=== PATIENT | female | born 1980 | race Caucasian/White ===

== ENCOUNTER 2017-10-12 06:02 | Observation (INO) | payer OTHER ==
[~2017-10-12 06:02] MED LIST: Buffered Lidocaine 0.9% SYRIN* 5 ML/SYR SYRINGE INTRADERM ONE; Famotidine IV* 10 MG/ML 2 ML (20 mg) IV ONE; Ondansetron INJ* 2 MG/ML VIAL IV ONE; Sodium Citrate/Citric Acid* 15 ML UDC PO ONE
[2017-10-12] MEDS ORDERED: Ondansetron INJ* 2 MG/ML VIAL ONE ×2 (06:35→08:11)
[2017-10-12] MEDS ORDERED: Sodium Citrate/Citric Acid* 15 ML UDC ONE (06:35)
[2017-10-12] MEDS ORDERED: Famotidine IV* 10 MG/ML 2 ML (20 mg) ONE (06:35)
[2017-10-12] MEDS ORDERED: Clindamycin 900 MG IVPREMIX(* 900 MG/50 ML SDV IV ONE (06:35)
[2017-10-12] MEDS ORDERED: Buffered Lidocaine 0.9% SYRIN* 5 ML/SYR SYRINGE ONE (06:35)
[2017-10-12] MEDS ORDERED: fentaNYL* 50 MCG/ML 2 ML VIAL (100 MCG VIAL) ONE ×3 (06:59→10:12)
[2017-10-12] MEDS ORDERED: Midazolam* 1 MG/ML 2 ML VIAL (2 MG) ONE (06:59)
[2017-10-12] MEDS ORDERED: Rocuronium* 10 MG/ML VIAL ONE (07:00)
[2017-10-12] MEDS ORDERED: Sterile Water for Inj* 10 ML ONE (07:01)
[2017-10-12] MEDS ORDERED: Sugammadex * 200 MG/2 ML VIAL IV PUSH ONE (07:18)
[2017-10-12] MEDS ORDERED: Bacitracin IV* 50,000 UNITS INJ ONE (07:26)
[2017-10-12] MEDS ORDERED: Lidocaine 1% MPF wEPI 200,000* 30 ML SDV ONE (07:26)
[2017-10-12] MEDS ORDERED: Thrombin 5,000 UNITS* 1 APPLIC KIT - topical use - TOPICAL ONE (07:26)
[2017-10-12] MEDS ORDERED: HYDROcodone/ACETAMIN 5-325 MG* 1 TAB PO PRN (07:59)
[2017-10-12] MEDS ORDERED: HYDROmorphone INJ* 1 MG/ML CARPUJECT SYRINGE IV PRN (07:59)
[2017-10-12] MEDS ORDERED: Ondansetron INJ* 2 MG/ML VIAL IV PRN ×2 (07:59→08:46)
[2017-10-12] MEDS ORDERED: Naloxone* 0.4 MG/ML 1 ML VIAL IV PRN (07:59)
[2017-10-12] MEDS ORDERED: Ketorolac INJ* 30 MG/ML 1 ML VIAL ONE (08:11)
[2017-10-12] MEDS ORDERED: Lidocaine 2% PF * 5 ML VIAL ONE (08:11)
[2017-10-12] MEDS ORDERED: Propofol* 10 MG/ML 20 ML BTL IV PUSH ONE (08:11)
[2017-10-12] MEDS ORDERED: Magnesium Hydroxide LIQ* 30 ML UDC PO PRN (08:46)
[2017-10-12] MEDS ORDERED: Acetaminophen TAB* 325 MG PO PRN (08:46)
[2017-10-12] MEDS ORDERED: Mouth Piece, Nicotine* 1 EACH CARTRIDGE INH PRN ×2 (08:51)
[2017-10-12] MEDS ORDERED: Nicotine Inhaler* 10 MG AMP INH PRN (08:51)
[2017-10-12] MEDS ORDERED: ALPRAZolam TAB* 0.5 MG PO PRN (08:52)
[2017-10-12] MEDS ORDERED: oxyCODONE/Acetamin 5/325 MG* TAB PO PRN (08:56)
[2017-10-12] MEDS: fentaNYL* 50 MCG/ML 2 ML VIAL (100 MCG VIAL) IV PRN ×3 (09:07→10:14)
[2017-10-12] MEDS ORDERED: oxyCODONE/Acetamin 5/325 MG* TAB ONE (09:11)
[2017-10-12] MEDS: oxyCODONE/Acetamin 5/325 MG* TAB PO PRN ×5 (09:12→22:13)
--- NOTE | 2017-10-12 11:16 | RAD ---
HISTORY: Lumbar discectomy COMPARISONS: None VIEWS: 1 , crosstable lateral portable view of the spine for localization a spinal surgery FINDINGS: A single portable view of the spine performed intraoperatively for localization during spinal surgery at 8:15 AM demonstrates a metallic probe opposite of L5-S1 counting from L5 as the last lumbar type vertebral body. IMPRESSION: LIMITED PORTABLE VIEW OF THE SPINE FOR LOCALIZATION DURING SPINAL SURGERY
[2017-10-12] MEDS: Nicotine PATCH 21 MG/24 HR* PATCH TRANSDERM SCH (13:51)
[2017-10-12] MEDS: Nicotine Patch Removal NOTE FOLLOW UP SCH (22:37)
[2017-10-13] MEDS: oxyCODONE/Acetamin 5/325 MG* TAB PO PRN ×2 (03:36→08:21)
[2017-10-13] MEDS: Nicotine Patch Removal NOTE FOLLOW UP SCH (06:23)
--- NOTE | 2017-10-13 07:50 | PN ---
Progress Note - Progress Note Date of Service: 10/13/17 SOAP: Subjective: [S/p lumbar discectomy L5-S1 on the right, POD#1. Patient is feeling well this morning. Complains of mild low back incisional soreness. Ambulating well. Denies headache and nausea. ] Objective: [ Vital Signs: Temp Pulse Resp BP Pulse Ox 97.6 F 78 16 118/78 100 10/13/17 04:00 10/13/17 04:00 10/13/17 06:00 10/13/17 04:00 10/13/17 04:00 General: Alert and oriented. Neuro: Motor and sensory intact. Incision: Intact with jomar. No swelling, erythema or ecchymosis. Extremities: Full ROM] Assessment: [Satisfactory post-op course. ] Plan: [1. Discharge home today. 2. Discharge instructions provided and discussed. ]
[2017-10-13 08:15] VITALS: BP 121/83
[2017-10-13] MEDS: Nicotine PATCH 21 MG/24 HR* PATCH TRANSDERM SCH (08:17)
--- NOTE | 2017-10-14 22:59 | OP ---
DATE OF OPERATION: 10/12/17 - ROOM #351 DATE OF : 84 SURGEON: William Beltran MD HAND SINGER: OTONIEL Yeh ANESTHESIA: General. PRE-OP DIAGNOSIS: Herniated nucleus pulposus, L5-S1 on the right. POST-OP DIAGNOSIS: Herniated nucleus pulposus, L5-S1 on the right. OPERATIVE PROCEDURE: Lumbar diskectomy, L5-S1 on he right with microdissection. DESCRIPTION OF PROCEDURE: After satisfactory general anesthesia was obtained, the patient was placed on the operating table in prone position with the chest supported on the Barak frame and the back slightly flexed. The lumbar region was then clipped, prepped and draped in a sterile manner for a lumbar exposure. Skin incision outlined beginning at L4 and extending to the sacrum. This incision was infiltrated with 1% Xylocaine with epinephrine after which it was turned down sharply to the level of the lumbar fascia. The fascia was divided along the spinous processes from L5 to the sacrum and the paraspinal musculature stripped away from these posterior elements using the periosteal elevator and monopolar cautery. 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 An intraoperative x-ray was obtained verifying proper interspace localization after which a partial hemilaminectomy was carried out by removing the inferior aspect of the L5 lamina and medial aspect of the facet complex using the combination of the Midas Regan drill and Kerrison rongeurs. This was carried superiorly until the attachment of ligamentum flavum was taken down. At this point of procedure, the operating microscope was brought into the field and the remainder of the procedure was done under microscopic visualization. Utilizing microdissection, epidural venous structures were coagulated and divided. Projecting beneath the S1 nerve root was noted to be a subcapsular herniation of disk material. An opening was identified in the posterior longitudinal ligament and enlarged. Multiple fragments of disk were removed from beneath the nerve root. The disk space itself was then cleared of any loose disk material using pituitary forceps and curettes. At the conclusion of the decompression, the S1 nerve root was noted to be free in its course. After assuring adequate hemostasis, the wound was thoroughly irrigated after which pieces of Gelfoam were placed over the exposed dura. The fascia was then reapproximated with 0 Vicryl suture, the subcutaneous tissue was closed with 3- 0 Vicryl suture and the skin closed with skin clips. The estimated blood less was less then 50 cc and the final sponge, padding, and needle counts were correct. The patient was taken to the recovery room, extubated and in stable condition. [id number]/CPS #: [id number] MTDD
== END 2017-10-13 10:15 | disposition home or self-care (01) ==
LOC: OR 06:02 → SSU 08:46
PROVIDERS: ADMIT Neurological Surgery; ATTEND Neurological Surgery
DX: M51.27 Other intervertebral disc displacement, lumbosacral region (principal); Z88.0 Allergy status to penicillin; Z88.6 Allergy status to analgesic agent; Z87.39 Personal history of other diseases of the musculoskeletal system and connective tissue
CPT/HCPCS: 72100; 96374; 96375; A9270-GY; G0378; J1885; J2001; J2250; J2405; J2704; J3010

== ENCOUNTER 2017-10-23 17:46 | Inpatient (IN) | payer OTHER ==
[2017-10-23] MEDS ORDERED: Ondansetron INJ* 2 MG/ML VIAL IV ONE (17:49)
[2017-10-23] MEDS ORDERED: NS 0.9% 1000 ML* 1,000 ML IV ONE (17:50)
[2017-10-23 18:11] LABS: ABS Basophils 0.1 10^3/ul (0-0.2); ABS Eosinophils 0 10^3/ul (0-0.6); ABS Lymphocytes 2.9 10^3/ul (1.0-4.8); ABS Monocytes 0.9 10^3/ul (0-0.8); ABS Neutrophils 3.1 10^3/ul (1.5-7.7); ABS Nucleated RBC 0 10^3/ul; Eosinophil % 0.4 % (0-6); Hematocrit 37 % (35-47); Hemoglobin 12.2 g/dl (12.0-16.0); Lymphocyte % 41.4 % (25-47); Mean Corpuscular HGB Conc 33 g/dl (31-36); Mean Corpuscular Hemoglobin 30 pg (27-31); Mean Corpuscular Volume 91 fL (80-97); Mean Platelet Volume 9 um3 (7.4-10.4); Nucleated Red Blood Cells % 0; Platelet Count 360 10^3/ul (150-450); Red Blood Count 4.06 10^6/ul (4.0-5.4); Red Cell Distribution Width 13 % (10.5-15)
[2017-10-23 18:26] LABS: EGFR Non-African American 87.9 (>60)
[2017-10-23 18:31] LABS: INR 1.01 (0.77-1.02)
[2017-10-23] MEDS ORDERED: Morphine INJ* 4 MG/ML 1 ML CARPUJECT IV ONE (18:38)
--- NOTE | 2017-10-23 19:00 | RAD ---
INDICATION: Back pain. Requisition notes "back surgery 10/12" COMPARISON: None. TECHNIQUE: Single AP portable view of the chest was obtained. FINDINGS: Image quality is compromised due to the relative inferiority of a portable chest x-ray. The heart and mediastinum exhibit normal size and contour. The lungs are grossly clear. There is no evidence of a large pleural effusion. Visualized bones are normal for the patient's age. IMPRESSION: No radiographic evidence for acute cardiopulmonary abnormality on this portable chest x-ray.
[2017-10-23] MEDS ORDERED: PROCHLORPERAZINE INJ 5 MG/ML 2 ML VIAL IV PRN (19:29)
[2017-10-23 20:17] LABS: Urine Appearance Cloudy; Urine Blood 1+ (Negative); Urine Color Yellow; Urine Ketones Negative (Negative); Urine Protein Negative (Negative); Urine Specific Gravity 1.014 (1.010-1.030); Urine Urobilinogen Negative (Negative)
[2017-10-23] MEDS: NS 0.9% 1000 ML* 1,000 ML IV SCH (20:33)
[2017-10-23] MEDS: oxyCODONE/Acetamin 5/325 MG* TAB PO PRN (20:36)
--- NOTE | 2017-10-23 20:39 | ED ---
Jakob Canales Nikita, scribed for Carlos Peña MD on 10/23/17 at 1802 . Back Pain - HPI Summary HPI Summary: This patient is a 37 year old F BIBA presenting to ED with a chief complaint of pain from the head and radiating down the back since 10/16/2017. The patient rates the pain 10/10 in severity. Symptoms aggravated by standing. Symptoms alleviated by laying supine. Patient reports soreness, vomiting (x1 week), SIBLEY ( since 10/16/2017), and nasal congestion. Patient denies hematuria, bowel or urinary problems, cough, and dehydration. The pt had surgery (disc removal) on 10/12/2017. - History of Current Complaint Stated Complaint: POST OP SURGERY Time Seen by Provider: 10/23/17 17:49 Hx Obtained From: Patient Onset/Duration: Sudden Onset, Lasting Weeks, Still Present Onset/Duration: Started Weeks Ago, Still Present Timing: Constant, Lasting Weeks Back Pain Location: Is Diffuse, Radiates To - from head and down the back Severity Initially: Severe Severity Currently: Severe Pain Intensity: 10 Pain Scale Used: 0-10 Numeric Aggravating Symptom(s): Other - standing up Alleviating Symptom(s): Position - laying supine Associated Signs And Symptoms: Positive: Other - Patient reports soreness, vomiting (x1 week), SIBLEY (since 10/16/2017), and nasal congestion. Patient denies hematuria, bowel or urinary problems, cough, and dehydration. - Allergies/Home Medications Allergies/Adverse Reactions: Allergies Allergy/AdvReac Type Severity Reaction Status Date / Time aspirin Allergy Anaphylatic Verified 10/23/17 19:50 Shock Penicillins Allergy Anaphylatic Verified 10/23/17 19:50 Shock PMH/Surg Hx/FS Hx/Imm Hx Endocrine/Hematology History: Denies: Hx Diabetes Cardiovascular History: Denies: Hx Coronary Artery Disease, Hx Hypertension Musculoskeletal History: Reports: Other Musculoskeletal History - back pain Psychiatric History: Reports: Hx Anxiety - prn med, Hx Depression - prn med - Surgical History Surgery Procedure, Year, and Place: bilateral ear tubes placed as a child - [place] - 2006 [place]. tubal ligation - 2006 [place]. hysterectomy 2012 [place]. hernia repair 2014 - [place] Hx Anesthesia Reactions: No Infectious Disease History: No Infectious Disease History: Denies: Traveled Outside the [place] in Last 30 Days - N - Family History Known Family History: Positive: Hypertension, Other Family History: Lung CA, Alzheimer's, sleep apnea - Social History Alcohol Use: Rare Substance Use Type: Reports: Marijuana Substance Use Comment - Amount & Last Used: reports as needed - last used Smoking Status (MU): Light Every Day Tobacco Smoker Amount Used/How Often: reports down to 5-10 per day for approx 7 years Review of Systems Positive: Other - nasal congestion; denies dehydration Negative: Cough Positive: Vomiting - x1 week, Other - denies bowel problems Positive: no symptoms reported. Negative: hematuria Positive: Other - soreness, pain from head radiating down the back Positive: Headache All Other Systems Reviewed And Are Negative: Yes Physical Exam - Summary Physical Exam Summary: VITAL SIGNS: Reviewed. GENERAL: ~Patient is a well-developed and nourished FEMALE who is lying comfortable in the stretcher. ~Patient is not in any acute respiratory distress. HEAD AND FACE: No signs of trauma. ~No ecchymosis, hematomas or skull depressions. No sinus tenderness. EYES: PERRLA, EOMI x 2, No injected conjunctiva, no nystagmus. EARS: Hearing grossly intact. Ear canals and tympanic membranes are within normal limits. MOUTH: Oropharynx within normal limits. NECK: Supple, trachea is midline, no adenopathy, no JVD, no carotid bruit, no c- spine tenderness, neck with full ROM. CHEST: Symmetric, no tenderness at palpation LUNGS: Clear to auscultation bilaterally. No wheezing or crackles. CVS: Regular rate and rhythm, S1 and S2 present, no murmurs or gallops appreciated. ABDOMEN: Soft, non-tender. No signs of distention. No rebound no guarding, and no masses palpated. Bowel sounds are normal. EXTREMITIES: FROM in all major joints, no edema, no cyanosis or clubbing. NEURO: Alert and oriented x 3. No acute neurological deficits. Speech is normal and follows commands. SKIN: Dry and warm. Slight swelling around surgical incision. No erythema, no secretion. Wound is clean, dry, and intact. BACK: Tenderness to lumbar spine around where the surgery was Triage Information Reviewed: Yes Vital Signs On Initial Exam: Initial Vitals Temp Pulse Resp BP Pulse Ox 98.7 F 66 17 132/89 99 10/23/17 17:54 10/23/17 17:54 10/23/17 17:54 10/23/17 17:54 10/23/17 17:54 Vital Signs Reviewed: Yes Diagnostics - Vital Signs Vital Signs Temp Pulse Resp BP Pulse Ox 10/23/17 17:54 98.7 F 66 17 132/89 99 - Laboratory Lab Results: Lab Results 10/23/17 10/23/17 10/23/17 Range/Units 17:54 17:54 17:54 WBC 7.0 (3.5-10.8) 10^3/ul RBC 4.06 (4.0-5.4) 10^6/ul Hgb 12.2 (12.0-16.0) g/dl Hct 37 (35-47) % MCV 91 (80-97) fL MCH 30 (27-31) pg MCHC 33 (31-36) g/dl RDW 13 (10.5-15) % Plt Count 360 (150-450) 10^3/ul MPV 9 (7.4-10.4) um3 Neut % (Auto) 44.1 (38-83) % Lymph % (Auto) 41.4 (25-47) % [place] % (Auto) 12.9 H (1-9) % Eos % (Auto) 0.4 (0-6) % Baso % (Auto) 1.2 (0-2) % Absolute Neuts (auto) 3.1 (1.5-7.7) 10^3/ul Absolute Lymphs (auto) 2.9 (1.0-4.8) 10^3/ul Absolute Monos (auto) 0.9 H (0-0.8) 10^3/ul Absolute Eos (auto) 0 (0-0.6) 10^3/ul Absolute Basos (auto) 0.1 (0-0.2) 10^3/ul Absolute Nucleated RBC 0 10^3/ul Nucleated RBC % 0 ESR 22 H (0-14) mm/Hr INR (Anticoag Therapy) 1.01 (0.77-1.02) APTT 32.5 (26.0-36.3) seconds Sodium 141 (133-145) mmol/L Potassium 3.7 (3.5-5.0) mmol/L Chloride 109 (101-111) mmol/L Carbon Dioxide 26 (22-32) mmol/L Anion Gap 6 (2-11) mmol/L BUN 8 (6-24) mg/dL Creatinine 0.75 (0.51-0.95) mg/dL Est GFR ( Amer) 113.1 (>60) Est GFR (Non-Af Amer) 87.9 (>60) BUN/Creatinine Ratio 10.7 (8-20) Glucose 92 (70-100) mg/dL Lactic Acid (0.5-2.0) mmol/L Calcium 8.7 (8.6-10.3) mg/dL Total Bilirubin 0.30 (0.2-1.0) mg/dL AST 10 L (13-39) U/L ALT 15 (7-52) U/L Alkaline Phosphatase 44 (34-104) U/L C-Reactive Protein 1.73 (< 5.00) mg/L Total Protein 6.6 (6.4-8.9) g/dL Albumin 3.8 (3.2-5.2) g/dL Globulin 2.8 (2-4) g/dL Albumin/Globulin Ratio 1.4 (1-3) Urine Color Urine Appearance Urine pH (5-9) Ur Specific [place] (1.010-1.030) Urine Protein (Negative) Urine Ketones (Negative) Urine Blood (Negative) Urine Nitrate (Negative) Urine Bilirubin (Negative) Urine Urobilinogen (Negative) Ur Leukocyte Esterase (Negative) Urine WBC (Auto) (Absent) Urine RBC (Auto) (Absent) Ur Squamous Epith Cells (Absent) Urine Bacteria (Absent) Urine Glucose (Negative) Influenza A (Rapid) (Negative) Influenza B (Rapid) (Negative) 10/23/17 10/23/17 10/23/17 Range/Units 17:54 19:46 20:00 WBC (3.5-10.8) 10^3/ul RBC (4.0-5.4) 10^6/ul Hgb (12.0-16.0) g/dl Hct (35-47) % MCV (80-97) fL MCH (27-31) pg MCHC (31-36) g/dl RDW (10.5-15) % Plt Count (150-450) 10^3/ul MPV (7.4-10.4) um3 Neut % (Auto) (38-83) % Lymph % (Auto) (25-47) % [place] % (Auto) (1-9) % Eos % (Auto) (0-6) % Baso % (Auto) (0-2) % Absolute Neuts (auto) (1.5-7.7) 10^3/ul Absolute Lymphs (auto) (1.0-4.8) 10^3/ul Absolute Monos (auto) (0-0.8) 10^3/ul Absolute Eos (auto) (0-0.6) 10^3/ul Absolute Basos (auto) (0-0.2) 10^3/ul Absolute Nucleated RBC 10^3/ul Nucleated RBC % ESR (0-14) mm/Hr INR (Anticoag Therapy) (0.77-1.02) APTT (26.0-36.3) seconds Sodium (133-145) mmol/L Potassium (3.5-5.0) mmol/L Chloride (101-111) mmol/L Carbon Dioxide (22-32) mmol/L Anion Gap (2-11) mmol/L BUN (6-24) mg/dL Creatinine (0.51-0.95) mg/dL Est GFR ( Amer) (>60) Est GFR (Non-Af Amer) (>60) BUN/Creatinine Ratio (8-20) Glucose (70-100) mg/dL Lactic Acid 0.8 (0.5-2.0) mmol/L Calcium (8.6-10.3) mg/dL Total Bilirubin (0.2-1.0) mg/dL AST (13-39) U/L ALT (7-52) U/L Alkaline Phosphatase (34-104) U/L C-Reactive Protein (< 5.00) mg/L Total Protein (6.4-8.9) g/dL Albumin (3.2-5.2) g/dL Globulin (2-4) g/dL Albumin/Globulin Ratio (1-3) Urine Color Yellow Urine Appearance Cloudy Urine pH 5.0 (5-9) Ur Specific [place] 1.014 (1.010-1.030) Urine Protein Negative (Negative) Urine Ketones Negative (Negative) Urine Blood 1+ H (Negative) Urine Nitrate Negative (Negative) Urine Bilirubin Negative (Negative) Urine Urobilinogen Negative (Negative) Ur Leukocyte Esterase Negative (Negative) Urine WBC (Auto) Trace(0-5/hpf) (Absent) Urine RBC (Auto) Trace(0-2/hpf) (Absent) Ur Squamous Epith Cells Present H (Absent) Urine Bacteria 1+ H (Absent) Urine Glucose Negative (Negative) Influenza A (Rapid) Negative (Negative) Influenza B (Rapid) Negative (Negative) Result Diagrams: 10/23/17 17:54 10/23/17 17:54 Lab Statement: Any lab studies that have been ordered have been reviewed, and results considered in the medical decision making process. - EKG 1752 Cardiac Rate: NL EKG Rhythm: Sinus Rhythm - 72 bpm EKG Interpretation: No ST elevations Back Pain Course/Dx - Course Assessment/Plan: This patient is a 37 year old F BIBA presenting to ED with a chief complaint of pain from the head and radiating down the lower back since . Patient had back surgery with Dr. Beltran on 10/12. Pateint was seen at [facility] where she was given Zofran Morphine for the pain and IVF. Lower back U/S showed a questionable CSF leak vs a seroma. Case was discussed by Dr. Sarimento (Neurosurgery) and accepted the patient for transfer. As recommended by Dr. Sierra, the patient was given IV fluids, morphine for pain, and zofran for nausea. He also recommended admission to Hospitalist since there is no planned surgery. Blood work w/o a significant abnormality. Influenza A and B negative. Discussed the case with Dr. Vargas who accepted the patient for admission. Dr. Sierra will consult for the patient. - Diagnoses Differential Diagnosis/HQI/PQRI: Positive: Other - intractable back pain, question of CSF leak vs. seroma Provider Diagnoses: Intractable back pain, question of CSF leak vs. seroma - Provider Notifications Discussed Care Of Patient With: Irma Vargas Time Discussed With Above Provider: 18:36 Instructed by Provider To: Other - Consulted Dr. Vargas who accepts the patient for admission. Discharge - Discharge Plan Condition: Stable Disposition: ADMITTED TO [facility] The documentation as recorded by the Jakob guillermo Nikita accurately reflects the service I personally performed and the decisions made by Casey quezada Walter, MD.
--- NOTE | 2017-10-24 00:12 | HP ---
CC: Dr. Greene; Dr. Aponte; Dr. Beltran * HISTORY AND PHYSICAL: DATE OF ADMISSION: 10/23/17 PRIMARY CARE PROVIDER: Diandra Sun. CONSULTING NEUROSURGEON: Dr. Aponte. ATTENDING PHYSICIAN WHILE IN THE HOSPITAL: Eze Alamo MD * (report dictated by Danie Coyle NP). CHIEF COMPLAINT: Headache. HISTORY OF PRESENTING ILLNESS: Ms. Villarreal is a 37-year-old female patient who on the of last month had a L5-S1 diskectomy under the care of Dr. Beltran. I will refer you to that hospitalization for detail. She was discharged on . The patient states she was doing well in the first initial 3 days. Postoperatively, she was not having any pain. She says the pain was well controlled. She was getting up, ambulating, doing well she noted Wednesday about a week ago. Today, she started developing a pain, particularly on the top of her head that radiated down her back right into the surgical site. She states that the pain when she stood up was worse and it hurt more. She had been vomiting to the point now where she is vomiting up some bilious type fluids. She denies having any fevers, no neck stiffness, denies any worsening weakness of the lower extremities, denies having any trouble with saddle numbness and denies having any difficulty with urination or defecation. She was concerned though, because the headache just was not going away. It had been a week, she has been taking her pain medicines as prescribed, it was not helping. Bright lights were bothering her. She does not give a history of migraine. She was concerned of the symptoms, she actually went to [facility]. They evaluated her there. They were concerned because they found according to the patient via ultrasound that there was fluid near the surgical site, so they were concerned and transferred her to our hospital given the recent surgery. The patient again denies any fevers. She denies any recent URI symptoms, denies any arthralgias, denies having any chest pain or shortness of breath. Denies having any abdominal discomfort. There was vomiting particularly with association of the headache. She came in to the ED, was evaluated here. The neurosurgeon had asked us to evaluate for admission because of the headache and she was evaluated by Neurosurgery, so we were asked to evaluate for admission. PAST MEDICAL HISTORY: Significant for: 1. Anxiety. 2. Depression. 3. Chronic back pain. PAST SURGICAL HISTORY: 1. She had a L5-S1 diskectomy just on 10/12/17. 2. History of appendectomy. 3. Cholecystectomy. 4. Hysterectomy. 5. Hernia repair. 6. Dilatation and curettage. 7. Tubal ligation. MEDICATIONS: Home medications according to list provided include: 1. Xanax 0.5 mg p.o. b.i.d. as needed. 2. Estradiol 1 mg p.o. daily. 3. Percocet 1 to 2 tablets every 4 hours as needed. ALLERGIES TO MEDICATIONS: Include ASPIRIN and PENICILLIN FAMILY HISTORY: Both her parents have history of high blood pressure. SOCIAL HISTORY: She is a smoker. She has not smoked in about a week. She does not drink alcohol. She was smoking about half a pack a day for about 10 to 15 years. Surrogate decision maker is her mother. REVIEW OF SYSTEMS: There was no documented fever. She denied having any significant weight change. No double vision. No ear discharge. Denies having any rhinorrhea. No sore throat. No thyroid enlargement. Denied having any chest pain. There is no orthopnea, no nocturnal dyspnea. There was no abdominal pain. There was nausea with vomiting. No dysuria, but there was no frequency. There was no seizure. No loss of consciousness. No pruritus and no skin ulcerations. Review of 14 systems completed, all others negative. PHYSICAL EXAMINATION GENERAL: At this time, Ms. Villarreal is a 37-year-old female patient. She is sitting in the ED stretcher. She does not appear to be in any acute distress. She appears to be well nourished and well developed. VITAL SIGNS: Blood pressure 131/85, pulse 80, respirations 16, O2 sat 99%, temperature 98.7. HEENT: Head: Atraumatic, normocephalic. Eyes: EOMs are intact. Sclerae anicteric and not pale. Throat: Oral mucosa appears to be moist. No oropharyngeal erythema. NECK: Supple. LUNGS: Clear to auscultation bilaterally. No wheezes, rales, or rhonchi. HEART: Sounds S1, S2. Regular rate and rhythm. No murmurs, rubs, or gallops. ABDOMEN: Soft, flat and nontender. Bowel sounds present. EXTREMITIES: Pulses were 2+ throughout. She is moving all 4 extremities now. She has about 5/5 strength in all 4 extremities. NEUROLOGIC: She is awake, alert. oriented x3. Tongue is midline. Rn Palliative are equal. Speech is clear. No facial drooping. No gross focal deficits. SKIN: Intact. The incision was examined by myself and with Dr. Aponte. There is mild bulging, but no erythema. No discharge was noted. Again, an incision was noted at the lumbar area. LABORATORY DATA/DIAGNOSTIC STUDIES: Today WBC of 7.0, RBC of 4.06, hemoglobin 12.2, hematocrit 37, platelet count of 360,000. INR 1. PTT of 32.5. Sodium 141, potassium 3.7, chloride of 109, bicarb 26. BUN 8, creatinine of 0.75, glucose 92, lactic 0.8, calcium 8.7, total bili 0.3, AST 10, ALT 15, alk phos 44. CRP 1.73, albumin 3.8. She did have a chest x-ray obtained today. Impression: No radiographic evidence for acute cardiopulmonary abnormality on the portable x-ray. She did have an EKG obtained today. Normal sinus rhythm. Rate of 72. No ST elevation or T wave inversions. Old medical records were reviewed. I did review the records from [place]. She did have an ultrasound of the lumbar area. Impression : Predominantly anechoic oblong fluid collection with a small amount of internal echos is present in the midline of the lumbar region just beneath the incision site measuring 6.5 x 7.1 x 4.0 cm in overall dimension. No internal flow or peripheral hyperemia is appreciated. Findings may represent seroma or CSF leak. No apparent vascularity. The entirety of the collection could not be visualized on the screen by the mud analysis operator. Old medical records were reviewed. ASSESSMENT AND PLAN: Ms. Villarreal is a 37-year-old female patient who comes in to the ED today with complaints of headache after having a lumbar L5-S1 diskectomy and evaluated by Neurosurgery. We were asked to evaluate for admission. She will be admitted under observation status for: 1. Headache. At this point, she is evaluated by Neurosurgery. The plan will be to go ahead and treat her pain, keep her in a flat position, evaluate her. Dr. Aponte did recommend repeating MRI with and without contrast of the lumbar spine. If the headache persists, we may need to consider a possible blood patch. I did put her on Fioricet with caffeine to see if this does help. We will lie the patient flat, keep her as flat as possible while she is here and will continue with supportive care. We will get neuro checks every 2 hours. If there is any deterioration, we will certainly get in touch with Neurosurgery. 2. Anxiety and depression. Continue with supportive care. 3. DVT prophylaxis. SCDs have been ordered. 4. Code status. She is a full code. 5. Fluids, electrolytes, and nutrition. She is on clear liquid diet. TIME SPENT: On admission was approximately 60 minutes, greater than half the time spent [id number] with the patient obtaining my history and physical; other half of the time spent going over the plan of care with the patient and implementing plan of care. I discussed the plan of care with my attending, Dr. Alamo; he is in agreement. DANIE COYLE, CHERI [id number]/CPS #: [id number] SUMANTH
[2017-10-24] MEDS: oxyCODONE/Acetamin 5/325 MG* TAB PO PRN ×3 (01:47→16:48)
--- NOTE | 2017-10-24 02:00 | CONS ---
CONSULTATION REPORT: DATE OF CONSULT: 10/23/17 HISTORY OF PRESENT ILLNESS: The patient is a very pleasant 37-year-old female who is status post right L5-S1 diskectomy by Dr. Beltran on 10/12/17. The patient did very well postoperatively, but approximately 4 or 5 days after the procedure, started developing a headache. She was seen in [place] initially and she was diagnosed with possible flu and was sent home. She returned today to the [place] [facility] with similar complaints with nausea, vomiting, and headaches. The patient was transferred to [facility] for further management after ultrasound of her back revealed possible fluid collection. The patient reports that she has been having headaches with nausea and vomiting and difficulty keeping her food down. She denies any drainage from the wound. Denies any fever. She feels that the headaches are worse when she stands up. She is able to walk and she denies any weakness, numbness, or tingling of the extremities. She reports that her pleuritic pain has significantly improved and she has some occasional complaints of right lower extremity pain. She denies any urinary or GI incontinence. Perianal sensation is intact. 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 PAST MEDICAL HISTORY: Back pain, anxiety, and depression. PAST SURGICAL HISTORY: Lumbar microdiskectomy as stated above. Myringotomy bilaterally. D and C, tubal ligation, hysterectomy, hernia repair. MEDICATIONS: Not available. ALLERGIES: The patient is allergic to ASPIRIN and PENICILLIN. FAMILY HISTORY: Hypertension, lung CA, Alzheimer's, sleep apnea. SOCIAL HISTORY: Tobacco, positive; alcohol, occasionally; recreational drug use , marijuana. PHYSICAL EXAMINATION: The patient is not in acute distress. She is awake, alert, oriented x3. Her pupils are equal and reactive. Cranial nerves II through XII grossly intact. Motor 5/5 in the lower extremities. Sensory grossly intact to light touch. Deep tendon reflexes +1 bilaterally. No clonus. No Babinski. Wheeler's negative. Straight leg raise negative in sitting position. No tenderness to palpation of the thoracic or lumbar spine. She has free range of motion of the cervical spine. She has no neck stiffness or tenderness. Her wound is soft, clean, and dry, healing very well with some very mild subcutaneous edema versus collection. ASSESSMENT: The patient is a very pleasant 37-year-old female with complaints of headache, nausea, and vomiting, status post right L5-S1 lumbar microdiskectomy on 10/12/16. PLAN: The patient at this point denies any drainage from the wound. Denies any fevers. Her vital signs were stable. She was afebrile. While the labs revealed white count of 7, ESR of 22, and CRP of 1.73. At this point, wound infection is highly unlikely. Based on the intraoperative findings I have discussed with Dr. Beltran, where the patient had no signs of spinal fluid leak or durotomy during the case it is highly unlikely that she has spinal fluid leak, although it cannot be excluded. At this point, we would like to obtain an MRI of her lumbar spine with and without contrast. For the time being, patient is evaluated by Internal Medicine and will be admitted for further workup and hydration as well as pain control. We will keep her in flat bed rest for now. We discussed different options including blood patch, serial taps, lumbar drain placement, or wound exploration if necessary. We appreciate internal Medicine inputs and help with this patient. We will follow closely with you. Thank you very much for allowing us to participate in the care of this patient. Please do not hesitate to contact our office in case you have any further questions or concerns regarding the care of this patient. Nestor Aponte MD [id number]/[facility] #: [id number] SUMANTH
[2017-10-24] MEDS: Ondansetron INJ* 2 MG/ML VIAL IV PRN ×2 (02:28→17:56)
[2017-10-24] MEDS: Butalb/Acetamin/Caff TAB* 1 TAB PO PRN ×2 (03:19→15:21)
[2017-10-24] MEDS ORDERED: Morphine INJ* 2 MG/ML 1 ML CARPUJECT ONE (03:59)
[2017-10-24] MEDS: Morphine INJ* 2 MG/ML 1 ML CARPUJECT IV PRN ×8 (04:03→23:14)
[2017-10-24 05:29] LABS: ABS Basophils 0.1 10^3/ul (0-0.2); ABS Eosinophils 0.1 10^3/ul (0-0.6); ABS Lymphocytes 3.2 10^3/ul (1.0-4.8); ABS Monocytes 0.7 10^3/ul (0-0.8); ABS Neutrophils 1.8 10^3/ul (1.5-7.7); ABS Nucleated RBC 0 10^3/ul; Eosinophil % 1.9 % (0-6); Hematocrit 32 % (35-47); Hemoglobin 10.7 g/dl (12.0-16.0); Lymphocyte % 54.5 % (25-47); Mean Corpuscular HGB Conc 33 g/dl (31-36); Mean Corpuscular Hemoglobin 31 pg (27-31); Mean Corpuscular Volume 92 fL (80-97); Mean Platelet Volume 9 um3 (7.4-10.4); Nucleated Red Blood Cells % 0.1; Platelet Count 288 10^3/ul (150-450); Red Blood Count 3.52 10^6/ul (4.0-5.4); Red Cell Distribution Width 13 % (10.5-15); White Blood Count 5.9 10^3/ul (3.5-10.8)
[2017-10-24 05:39] LABS: INR 1.03 (0.77-1.02)
[2017-10-24 05:44] LABS: EGFR Non-African American 92.2 (>60)
[2017-10-24] MEDS: NS 0.9% 1000 ML* 1,000 ML IV SCH ×3 (06:26→23:46)
--- NOTE | 2017-10-24 11:59 | PN ---
Subjective Date of Service: 10/24/17 Interval History: Pt examined today at the bedside. She states that she has a SIBLEY that is worse with standing better when flat. She denies chest pain or sob. Denies weakness to LLE exts. ROS-denies fever, denies chills, denies abdominal pain, denies nausea, denies vomiting since last night, denies lightheadedness, denies loc, review of 11 systems completed all others negative, Objective Active Medications: Acetaminophen/Butalbital/Caffeine (Fioricet Tab*) 1 tab PO Q6H PRN PRN Reason: PAIN Last Admin: 10/24/17 03:19 Dose: 1 tab Alprazolam (Xanax Tab*) 0.5 mg PO BID PRN PRN Reason: ANXIETY Sodium Chloride (Ns 0.9% 1000 Ml*) 1,000 mls @ 125 mls/hr IV PER RATE EDWIN Last Admin: 10/24/17 06:26 Dose: 125 mls/hr Morphine Sulfate (Morphine Inj (Syringe)*) 2 mg IV Q2H PRN PRN Reason: PAIN Last Admin: 10/24/17 11:48 Dose: 2 mg Ondansetron HCl (Zofran Inj*) 4 mg IV Q6H PRN PRN Reason: NAUSEA Last Admin: 10/24/17 02:28 Dose: 4 mg Oxycodone/Acetaminophen (Percocet 5/325 Tab*) 1 tab PO Q4H PRN PRN Reason: PAIN Last Admin: 10/24/17 07:25 Dose: 1 tab Prochlorperazine Edisylate (Compazine Inj*) 5 mg IV Q6H PRN PRN Reason: NAUSEA/VOMITING Vital Signs - 8 hr 10/24/17 10/24/17 10/24/17 04:00 04:03 05:08 Temperature Pulse Rate Respiratory 20 20 18 Rate Blood Pressure (mmHg) O2 Sat by Pulse Oximetry 10/24/17 10/24/17 10/24/17 06:19 06:24 07:19 Temperature Pulse Rate Respiratory 16 16 19 Rate Blood Pressure (mmHg) O2 Sat by Pulse Oximetry 10/24/17 10/24/17 10/24/17 07:25 07:35 09:24 Temperature 97.5 F Pulse Rate 60 Respiratory 16 16 16 Rate Blood Pressure 106/72 (mmHg) O2 Sat by Pulse 98 Oximetry 10/24/17 11:48 Temperature Pulse Rate Respiratory 16 Rate Blood Pressure (mmHg) O2 Sat by Pulse Oximetry Oxygen Devices in Use Now: None Appearance: 37 y/o female patient sitting in bed NAD, Eyes: No Scleral Icterus Ears/Nose/Mouth/Throat: NL Teeth, Lips, Gums Neck: NL Appearance and Movements; NL JVP Respiratory: Symmetrical Chest Expansion and Respiratory Effort, Clear to Auscultation Cardiovascular: NL Sounds; No Murmurs; No JVD Abdominal: NL Sounds; No Tenderness; No Distention Extremities: No Edema Skin: - - incision to lumbar spin CDI no reddness or drainage noted, Neurological: Alert and Oriented x 3, - - 5/5 strength to Lower exts, weakness to Right dorisflex this is baseline, Lines/Tubes/Other Access: Clean, Dry and Intact Peripheral IV Result Diagrams: 10/24/17 05:11 10/24/17 05:11 Additional Lab and Data: Lab Results 10/23/17 10/23/17 10/23/17 Range/Units 17:54 17:54 17:54 WBC 7.0 (3.5-10.8) 10^3/ul RBC 4.06 (4.0-5.4) 10^6/ul Hgb 12.2 (12.0-16.0) g/dl Hct 37 (35-47) % MCV 91 (80-97) fL MCH 30 (27-31) pg MCHC 33 (31-36) g/dl RDW 13 (10.5-15) % Plt Count 360 (150-450) 10^3/ul MPV 9 (7.4-10.4) um3 Neut % (Auto) 44.1 (38-83) % Lymph % (Auto) 41.4 (25-47) % [place] % (Auto) 12.9 H (1-9) % Eos % (Auto) 0.4 (0-6) % Baso % (Auto) 1.2 (0-2) % Absolute Neuts (auto) 3.1 (1.5-7.7) 10^3/ul Absolute Lymphs (auto) 2.9 (1.0-4.8) 10^3/ul Absolute Monos (auto) 0.9 H (0-0.8) 10^3/ul Absolute Eos (auto) 0 (0-0.6) 10^3/ul Absolute Basos (auto) 0.1 (0-0.2) 10^3/ul Absolute Nucleated RBC 0 10^3/ul Nucleated RBC % 0 ESR 22 H (0-14) mm/Hr INR (Anticoag Therapy) 1.01 (0.77-1.02) APTT 32.5 (26.0-36.3) seconds Sodium 141 (133-145) mmol/L Potassium 3.7 (3.5-5.0) mmol/L Chloride 109 (101-111) mmol/L Carbon Dioxide 26 (22-32) mmol/L Anion Gap 6 (2-11) mmol/L BUN 8 (6-24) mg/dL Creatinine 0.75 (0.51-0.95) mg/dL Est GFR ( Amer) 113.1 (>60) Est GFR (Non-Af Amer) 87.9 (>60) BUN/Creatinine Ratio 10.7 (8-20) Glucose 92 (70-100) mg/dL Lactic Acid (0.5-2.0) mmol/L Calcium 8.7 (8.6-10.3) mg/dL Total Bilirubin 0.30 (0.2-1.0) mg/dL AST 10 L (13-39) U/L ALT 15 (7-52) U/L Alkaline Phosphatase 44 (34-104) U/L C-Reactive Protein 1.73 (< 5.00) mg/L Total Protein 6.6 (6.4-8.9) g/dL Albumin 3.8 (3.2-5.2) g/dL Globulin 2.8 (2-4) g/dL Albumin/Globulin Ratio 1.4 (1-3) Urine Color Urine Appearance Urine pH (5-9) Ur Specific Carmi (1.010-1.030) Urine Protein (Negative) Urine Ketones (Negative) Urine Blood (Negative) Urine Nitrate (Negative) Urine Bilirubin (Negative) Urine Urobilinogen (Negative) Ur Leukocyte Esterase (Negative) Urine WBC (Auto) (Absent) Urine RBC (Auto) (Absent) Ur Squamous Epith Cells (Absent) Urine Bacteria (Absent) Urine Glucose (Negative) Influenza A (Rapid) (Negative) Influenza B (Rapid) (Negative) 10/23/17 10/23/17 10/23/17 Range/Units 17:54 19:46 20:00 WBC (3.5-10.8) 10^3/ul RBC (4.0-5.4) 10^6/ul Hgb (12.0-16.0) g/dl Hct (35-47) % MCV (80-97) fL MCH (27-31) pg MCHC (31-36) g/dl RDW (10.5-15) % Plt Count (150-450) 10^3/ul MPV (7.4-10.4) um3 Neut % (Auto) (38-83) % Lymph % (Auto) (25-47) % [place] % (Auto) (1-9) % Eos % (Auto) (0-6) % Baso % (Auto) (0-2) % Absolute Neuts (auto) (1.5-7.7) 10^3/ul Absolute Lymphs (auto) (1.0-4.8) 10^3/ul Absolute Monos (auto) (0-0.8) 10^3/ul Absolute Eos (auto) (0-0.6) 10^3/ul Absolute Basos (auto) (0-0.2) 10^3/ul Absolute Nucleated RBC 10^3/ul Nucleated RBC % ESR (0-14) mm/Hr INR (Anticoag Therapy) (0.77-1.02) APTT (26.0-36.3) seconds Sodium (133-145) mmol/L Potassium (3.5-5.0) mmol/L Chloride (101-111) mmol/L Carbon Dioxide (22-32) mmol/L Anion Gap (2-11) mmol/L BUN (6-24) mg/dL Creatinine (0.51-0.95) mg/dL Est GFR ( Amer) (>60) Est GFR (Non-Af Amer) (>60) BUN/Creatinine Ratio (8-20) Glucose (70-100) mg/dL Lactic Acid 0.8 (0.5-2.0) mmol/L Calcium (8.6-10.3) mg/dL Total Bilirubin (0.2-1.0) mg/dL AST (13-39) U/L ALT (7-52) U/L Alkaline Phosphatase (34-104) U/L C-Reactive Protein (< 5.00) mg/L Total Protein (6.4-8.9) g/dL Albumin (3.2-5.2) g/dL Globulin (2-4) g/dL Albumin/Globulin Ratio (1-3) Urine Color Yellow Urine Appearance Cloudy Urine pH 5.0 (5-9) Ur Specific Carmi 1.014 (1.010-1.030) Urine Protein Negative (Negative) Urine Ketones Negative (Negative) Urine Blood 1+ H (Negative) Urine Nitrate Negative (Negative) Urine Bilirubin Negative (Negative) Urine Urobilinogen Negative (Negative) Ur Leukocyte Esterase Negative (Negative) Urine WBC (Auto) Trace(0-5/hpf) (Absent) Urine RBC (Auto) Trace(0-2/hpf) (Absent) Ur Squamous Epith Cells Present H (Absent) Urine Bacteria 1+ H (Absent) Urine Glucose Negative (Negative) Influenza A (Rapid) Negative (Negative) Influenza B (Rapid) Negative (Negative) Microbiology and Other Data: Microbiology 10/23/17 19:40 Influenza Types A,B Antigen (MANUEL) - Final Nasopharyngeal Specimen received for Influenza A/B Molecular testing Assess/Plan/Problems-Billing Assessment: 37 y/o s/p l5 s1 discectomy now with complaints of SIBLEY - Patient Problems (1) Herniation of intervertebral disc between L5 and S1 Current Visit: Yes Status: Acute Priority: High Comment: S/p L5-S1 discectomy now with complaints of SIBLEY and ? seroma to surgical site, neurosurg managing, no signs of infection (2) Headache Current Visit: Yes Status: Acute Priority: High Comment: Headache worse with position change discussed with neurosurg, plan for HOB flat bedrest hob at 30 to eat only, MRI tomorrow neurosurg to see today, no new focal neurodeficits , continue with PRN pain medications, (3) Anxiety and depression Current Visit: Yes Status: Acute Priority: High Comment: supportive care (4) DVT prophylaxis Current Visit: Yes Status: Acute Priority: High Comment: SCDs (5) Full code status Current Visit: Yes Status: Acute Priority: High (6) FEN Current Visit: Yes Status: Acute Priority: High Comment: Regular diet Status and Disposition: Home when stable await MRI
--- NOTE | 2017-10-24 17:43 | PN ---
Progress Note - Progress Note Date of Service: 10/24/17 SOAP: Subjective: [] No events ON. Tolerates PO. Ambulated to bathroom. Still c/o SIBLEY while in bed, worsening when OOB. Objective: []VSS, Afebrile. Wound soft, clean, Dry Collection soft AAOx3 CRYSTAL, CN II-XII grossly intact, Motor 5/5 Sensory grossly intact to light touch. Assessment: []37 yo f SIBLEY sp L5-S1 LMD Plan: []Monitor VS, Neurochecks Pain control. Avoid IV morphine as only pain medication. Flat bed rest MRI in am. Discussed possible options and plan with patient in details Appreciate IM management. Nestor Aponte MD
[2017-10-25] MEDS: Butalb/Acetamin/Caff TAB* 1 TAB PO PRN ×3 (00:51→17:09)
--- NOTE | 2017-10-25 08:17 | PN ---
Subjective Date of Service: 10/25/17 Interval History: Ms. Villarreal reports persistent headache and nausea with standing. She denies other complaint. Objective Active Medications: Acetaminophen/Butalbital/Caffeine (Fioricet Tab*) 1 tab PO Q6H PRN Alprazolam (Xanax Tab*) 0.5 mg PO BID PRN Sodium Chloride (Ns 0.9% 1000 Ml*) 1,000 mls @ 125 mls/hr IV PER RATE EDWIN Ondansetron HCl (Zofran Inj*) 4 mg IV Q6H PRN Oxycodone/Acetaminophen (Percocet 5/325 Tab*) 1 tab PO Q4H PRN Prochlorperazine Edisylate (Compazine Inj*) 5 mg IV Q6H PRN Vital Signs: Temp Pulse Resp BP Pulse Ox 98.1 F 51 15 117/68 94 10/25/17 04:15 10/25/17 04:15 10/25/17 04:15 10/25/17 04:15 10/25/17 04:15 Oxygen Devices in Use Now: None Appearance: Female lying in bed in NAD Eyes: No Scleral Icterus Ears/Nose/Mouth/Throat: Mucous Membranes Moist Neck: NL Appearance and Movements; NL JVP, Trachea Midline Respiratory: Symmetrical Chest Expansion and Respiratory Effort, Clear to Auscultation Cardiovascular: NL Sounds; No Murmurs; No JVD, No Edema Abdominal: NL Sounds; No Tenderness; No Distention Lymphatic: No Cervical Adenopathy Extremities: No Edema Skin: No Rash or Ulcers Neurological: Alert and Oriented x 3, NL Muscle Strength and Tone Nutrition: Taking PO's Result Diagrams: 10/24/17 05:11 10/24/17 05:11 Additional Lab and Data: . Microbiology and Other Data: . Assess/Plan/Problems-Billing Assessment: Ms. Villarreal is a 37 yo female s/p L5-S1 discectomy now with complaints of headache. - Patient Problems (1) Headache Comment: - Headache worse with position change. No new focal neuro deficits. - Appreciate neurosurg consultation. S/P L5-S1 discectomy now with MRI showing likely CSF leak. Dr. Beltran to take patient to OR tomorrow. - Plan for HOB flat bedrest hob at 30 to eat only, continue with PRN pain medications. (2) Anxiety and depression Comment: - Supportive care (3) DVT prophylaxis Comment: - SCDs (4) Full code status Comment: Status and Disposition: Inpatient. Anticipate discharge to home when medically stable.
[2017-10-25] MEDS: oxyCODONE/Acetamin 5/325 MG* TAB PO PRN ×4 (08:23→21:33)
[2017-10-25] MEDS: NS 0.9% 1000 ML* 1,000 ML IV SCH ×2 (08:24→20:40)
[2017-10-25] MEDS: ALPRAZolam TAB* 0.5 MG PO PRN ×2 (08:33→21:38)
[2017-10-25] MEDS ORDERED: Gadoteridol* (CONTRAST) 279.3 MG/ML 10 ML IV ONE (11:11)
--- NOTE | 2017-10-25 11:45 | RAD ---
Indication: Post L5-S1 discectomy October 12, 2017. Headache. Comparison: October 12, 2017 intraoperative radiographs. Technique: [employer] 1.5 Leah [id number] with GEM suite. Noncontrast and contrast-enhanced MRI lumbar sacral spine. 11 mL ProHance administered IV. Report: Unremarkable conus medullaris and cauda equina. Mild edematous type reactive endplate change flanking the L5-S1 disc space. Negative for fracture or spondylolysis at any level. Normal vertebral alignment accounting for exam positioning without spondylolisthesis or subluxation at any level. T12-L1: Unremarkable disc level for age without acquired spinal stenosis. L1-L2: Unremarkable disc level for age without acquired spinal stenosis. L2-L3: Unremarkable disc level for age without acquired spinal stenosis. L3-L4: Unremarkable disc level for age without acquired spinal stenosis. L4-L5: Unremarkable disc level for age without acquired spinal stenosis. L5-S1: Post RIGHT hemilaminectomy. Mild disc space narrowing. Posterior central to RIGHT subarticular small disc protrusion with resulting minimal impression on the RIGHT anterior margin of the thecal sac and partial effacement of the traversing RIGHT S1 nerve root in the lateral recess. Negative for enhancement of the protruding material to favor granulation tissue/ epidural fibrosis. Degenerative spondylosis and facet joint osteoarthritis results in mild bilateral foraminal stenosis. Extending posterior from the RIGHT margin of the L5 spinous process through the subcutaneous tissue plane to the subdermal region there is a 3.5 cm AP by 2.7 cm transverse by 5.8 cm cephalocaudal T2 hyperintense T1 hypointense nonenhancing fluid collection most consistent with a postoperative seroma or hematoma. There is interstitial edema and corresponding enhancement in the posterior RIGHT paraspinal musculature at the L5-S1 level. IMPRESSION: 1. At L5-S1 there is a small posterior central to RIGHT subarticular disc protrusion with minimal impression on the RIGHT anterior margin of the thecal sac and partial effacement of the traversing RIGHT S1 nerve root in the lateral recess. 2. Postsurgical change of RIGHT hemilaminectomy. 3. Extending posterior from the RIGHT margin of the L5 spinous process through the subcutaneous tissue plane to the subdermal region there is a 3.5 cm AP by 2.7 cm transverse by 5.8 cm cephalocaudal T2 hyperintense T1 hypointense nonenhancing fluid collection most consistent with a postoperative seroma or hematoma. 4. Postoperative edema and low suspicion enhancement in the posterior RIGHT paraspinal skeletal musculature.
[2017-10-25] MEDS: Ondansetron INJ* 2 MG/ML VIAL IV PRN (12:47)
--- NOTE | 2017-10-25 15:20 | PN ---
Progress Note - Progress Note Date of Service: 10/25/17 SOAP: Subjective: [] Patient continues to complain of postural headache MRI shows fluid collection which follows CSF density in all sequences consistent with CSF Objective: []Wound with slight fluid Does not get larger with standing Neuro intact Assessment: []Probable post op CSF leak Plan: []Exploration of Lumbar Wound with repair of CSF leak 10/26
[2017-10-25] MEDS ORDERED: Buffered Lidocaine 0.9% SYRIN* 5 ML/SYR SYRINGE INTRADERM ONE (18:02)
[2017-10-26] MEDS: oxyCODONE/Acetamin 5/325 MG* TAB PO PRN ×2 (04:09→16:11)
[2017-10-26] MEDS ORDERED: Buffered Lidocaine 0.9% SYRIN* 5 ML/SYR SYRINGE INTRADERM ONE ×2 (06:00→12:24)
[2017-10-26] MEDS ORDERED: Famotidine IV* 10 MG/ML 2 ML (20 mg) IV ONE (10:00)
[2017-10-26] MEDS ORDERED: Famotidine IV* 10 MG/ML 2 ML (20 mg) ONE ×4 (10:27→14:19)
[2017-10-26] MEDS ORDERED: Clindamycin 900 MG IVPREMIX(* 900 MG/50 ML SDV IV ONE (11:34)
[2017-10-26] MEDS ORDERED: Acetaminophen TAB* 325 MG PO PRN (12:25)
[2017-10-26] MEDS ORDERED: Levalbuterol 0.63MG/3ML NEB* UNIT OF USE INH PRN (12:25)
[2017-10-26] MEDS ORDERED: Ondansetron INJ* 2 MG/ML VIAL IV PRN (12:25)
[2017-10-26] MEDS ORDERED: PROCHLORPERAZINE INJ 5 MG/ML 2 ML VIAL IV PRN (12:25)
[2017-10-26] MEDS ORDERED: DiMENhydriNATE IV* 50 MG/ML VIAL IV PUSH PRN (12:25)
[2017-10-26] MEDS ORDERED: Naloxone* 0.4 MG/ML 1 ML VIAL IV PRN (12:25)
[2017-10-26] MEDS ORDERED: fentaNYL* 50 MCG/ML 2 ML VIAL (100 MCG VIAL) ONE ×4 (12:30→15:21)
[2017-10-26] MEDS ORDERED: Midazolam* 1 MG/ML 2 ML VIAL (2 MG) ONE (12:31)
[2017-10-26] MEDS ORDERED: Thrombin 5,000 UNITS* 1 APPLIC KIT - topical use - TOPICAL ONE (12:48)
[2017-10-26] MEDS ORDERED: Bacitracin IV* 50,000 UNITS INJ ONE (12:48)
[2017-10-26] MEDS ORDERED: Lidocaine 1% MPF wEPI 200,000* 30 ML SDV ONE (12:48)
[2017-10-26] MEDS ORDERED: Mivacurium Chloride* 20 MG/10 ML VIAL IV ONE (14:19)
[2017-10-26] MEDS ORDERED: Ondansetron INJ* 2 MG/ML VIAL ONE (14:19)
[2017-10-26] MEDS ORDERED: Propofol* 10 MG/ML 20 ML BTL IV PUSH ONE (14:19)
[2017-10-26] MEDS ORDERED: Dexamethasone IV* 4 MG/ML 1 ML (4 MG) ONE (14:19)
[2017-10-26] MEDS ORDERED: Lidocaine 2% PF * 5 ML VIAL ONE (14:19)
[2017-10-26] MEDS: fentaNYL* 50 MCG/ML 2 ML VIAL (100 MCG VIAL) IV PRN ×4 (15:03→15:34)
[2017-10-26] MEDS ORDERED: oxyCODONE/Acetamin 5/325 MG* TAB PO ONE (16:49)
--- NOTE | 2017-10-26 18:21 | PN ---
Subjective Date of Service: 10/26/17 Interval History: Ms. Villarreal is now s/p surgery with Dr. Beltran. She reports back pain but no further headache. She is instructed to lay flat at all times. She denies other complaint. Objective Active Medications: Acetaminophen/Butalbital/Caffeine (Fioricet Tab*) 1 tab PO Q6H PRN Hydrocodone Bitart/Acetaminophen ([place] 5-325 Tab*) 2 tab PO Q4H PRN Alprazolam (Xanax Tab*) 0.5 mg PO BID PRN Lactated Ringer's (Lactated Ringers 1000 Ml Bag*) 1,000 mls @ 125 mls/hr IV PER RATE EDWIN Naloxone HCl (Narcan*) 0.08 mg IV Q2M PRN Ondansetron HCl (Zofran Inj*) 4 mg IV Q6H PRN Prochlorperazine Edisylate (Compazine Inj*) 5 mg IV Q6H PRN Vital Signs: Temp Pulse Resp BP Pulse Ox 97.9 F 66 16 128/72 99 10/26/17 15:45 10/26/17 15:45 10/26/17 17:38 10/26/17 15:45 10/26/17 15:45 Oxygen Devices in Use Now: Nasal Cannula Appearance: Female lying in bed HOB flat in NAD Eyes: No Scleral Icterus Ears/Nose/Mouth/Throat: Mucous Membranes Moist Neck: Trachea Midline Respiratory: Symmetrical Chest Expansion and Respiratory Effort, Clear to Auscultation Cardiovascular: NL Sounds; No Murmurs; No JVD, No Edema Abdominal: NL Sounds; No Tenderness; No Distention Lymphatic: No Cervical Adenopathy Extremities: No Edema Skin: No Rash or Ulcers Neurological: Alert and Oriented x 3, NL Muscle Strength and Tone Nutrition: Taking PO's Result Diagrams: 10/24/17 05:11 10/24/17 05:11 Additional Lab and Data: . Microbiology and Other Data: . Assess/Plan/Problems-Billing Assessment: Ms. Villarreal is a 37 yo female s/p L5-S1 discectomy now with complaints of headache. - Patient Problems (1) Headache Comment: - No headache now but has been instructed to keep HOB flat. - Appreciate neurosurg consultation. Now s/p repair of CSF leak from recent L5- S1 discectomy. - Plan for HOB flat, bedrest. - Pain meds prn. (2) Anxiety and depression Comment: - Supportive care (3) DVT prophylaxis Comment: - SCDs (4) Full code status Comment: Status and Disposition: Inpatient. Anticipate discharge to home when medically stable.
[2017-10-26] MEDS: Ondansetron INJ* 2 MG/ML VIAL IV PRN (21:30)
[2017-10-26] MEDS: ALPRAZolam TAB* 0.5 MG PO PRN (21:30)
[2017-10-26] MEDS: HYDROcodone/ACETAMIN 5-325 MG* 1 TAB PO PRN (21:31)
[2017-10-27] MEDS ORDERED: Morphine INJ* 4 MG/ML 1 ML CARPUJECT IV ONE ×3 (01:26→12:06)
[2017-10-27] MEDS: HYDROcodone/ACETAMIN 5-325 MG* 1 TAB PO PRN ×6 (01:38→23:36)
--- NOTE | 2017-10-27 08:18 | PN ---
Progress Note - Progress Note Date of Service: 10/27/17 SOAP: Subjective: [S/p CSF leak repair, POD#1. S/p lumbar discectomy L5-S1 right on 10/12/17. Complains of low back pain this morning and incisional soreness. Denies headache since surgery yesterday. Denies nausea. ] Objective: [ Vital Signs: Temp Pulse Resp BP Pulse Ox 97.9 F 71 16 113/63 98 10/27/17 04:03 10/27/17 04:03 10/27/17 05:52 10/27/17 04:03 10/27/17 04:03 General: Alert and oriented. No distress. Neuro: Motor and sensory intact. Incision: Intact with jomar. No swelling. ] Assessment: [Satisfactory post-op.] Plan: [1. Valencia removed and now may get up to use bedside commode, otherwise HOB flat with one pillow. 2. Continue pain management. 3. Add cyclobenzaprine ]
[2017-10-27] MEDS: Cyclobenzaprine TAB* 10 MG PO PRN ×2 (08:32→20:04)
[2017-10-27] MEDS: ALPRAZolam TAB* 0.5 MG PO PRN (10:00)
--- NOTE | 2017-10-27 14:41 | PN ---
Subjective Date of Service: 10/27/17 Interval History: Patient has resolution of headache. Patient currently has 10/10 pain in her back at her surgical incision. Patient denies radiation to her legs, F/C, N/V, numbness, tingling, loss of bowel or bladder control, abdominal pain, diarrhea, constipation, Cough, CP, SOB or other pain. Family History: Unchanged from Admission Social History: Unchanged from Admission Past Medical History: Unchanged from Admission Objective Active Medications: Acetaminophen/Butalbital/Caffeine (Fioricet Tab*) 1 tab PO Q6H PRN PRN Reason: PAIN Last Admin: 10/25/17 17:09 Dose: 1 tab Hydrocodone Bitart/Acetaminophen ([place] 5-325 Tab*) 2 tab PO Q4H PRN PRN Reason: PAIN Last Admin: 10/27/17 14:38 Dose: 2 tab Alprazolam (Xanax Tab*) 0.5 mg PO BID PRN PRN Reason: ANXIETY Last Admin: 10/27/17 10:00 Dose: 0.5 mg Cyclobenzaprine HCl (Flexeril Tab*) 10 mg PO BID PRN PRN Reason: SPASMS - BACK Last Admin: 10/27/17 08:32 Dose: 10 mg Lactated Ringer's (Lactated Ringers 1000 Ml Bag*) 1,000 mls @ 125 mls/hr IV PER RATE EDWIN Last Admin: 10/27/17 05:25 Dose: 125 mls/hr Ondansetron HCl (Zofran Inj*) 4 mg IV Q6H PRN PRN Reason: NAUSEA Last Admin: 10/26/17 21:30 Dose: 4 mg Prochlorperazine Edisylate (Compazine Inj*) 5 mg IV Q6H PRN PRN Reason: NAUSEA/VOMITING Last Admin: 10/24/17 19:44 Dose: 5 mg Vital Signs - 8 hr 10/27/17 10/27/17 10/27/17 07:55 08:32 09:55 Respiratory 16 16 16 Rate 10/27/17 10/27/17 10/27/17 10:00 12:32 14:38 Respiratory 16 16 16 Rate Oxygen Devices in Use Now: None Appearance: Patient is a 37yo female who appears stated age and is sitting in the bed in NAD. Eyes: No Scleral Icterus, PERRLA Ears/Nose/Mouth/Throat: NL Teeth, Lips, Gums, Clear Oropharnyx, Mucous Membranes Moist Neck: NL Appearance and Movements; NL JVP, Trachea Midline Respiratory: Symmetrical Chest Expansion and Respiratory Effort, Clear to Auscultation Cardiovascular: NL Sounds; No Murmurs; No JVD, RRR, No Edema Abdominal: NL Sounds; No Tenderness; No Distention, No Hepatosplenomegaly Lymphatic: No Cervical Adenopathy Extremities: No Edema, No Clubbing, Cyanosis Skin: No Nodules or Sclerosis, - - Lower back incision covered with CDI bandage. Neurological: Alert and Oriented x 3, NL Sensation, NL Muscle Strength and Tone Result Diagrams: 10/24/17 05:11 10/24/17 05:11 Additional Lab and Data: . Microbiology and Other Data: . Assess/Plan/Problems-Billing Assessment: Ms. Villarreal is a 37 yo female s/p L5-S1 discectomy with a CSF leak who is POD #1 after revision who now has no headache but severe incisional pain. - Patient Problems (1) Post-operative state Current Visit: Yes Status: Acute Code(s): Z98.890 - OTHER SPECIFIED POSTPROCEDURAL STATES SNOMED Code(s): 53726773 Comment: Patient is POD#1 after a CSF leak closure. H/H stable, no symptoms of anemia. Patient is urinating. Pain control with [place] and Flexeril. (2) Headache Current Visit: Yes Status: Acute Priority: High Code(s): R51 - HEADACHE SNOMED Code(s): 61170024 Comment: No headache now but has been instructed to keep HOB flat. Appreciate neurosurg consultation. Now s/p repair of CSF leak from recent L5-S1 discectomy. Plan for HOB flat. Activity per neurosurgery. Pain meds prn. (3) Anxiety and depression Current Visit: Yes Status: Acute Priority: High Code(s): F41.8 - OTHER SPECIFIED ANXIETY DISORDERS SNOMED Code(s): 108359260 Comment: Supportive care and Xanax PRN (4) Full code status Current Visit: Yes Status: Acute Priority: High Code(s): Z78.9 - OTHER SPECIFIED HEALTH STATUS SNOMED Code(s): 475667464 Comment: (5) DVT prophylaxis Current Visit: Yes Status: Acute Priority: High Code(s): DRQ3335 - SNOMED Code(s): 377053459 Comment: - SCDs Status and Disposition: Inpatient. Anticipate discharge to home when medically stable.
[2017-10-27] MEDS: Ondansetron INJ* 2 MG/ML VIAL IV PRN (18:33)
[2017-10-27] MEDS: traMADol TAB* 50 MG PO PRN (20:45)
[2017-10-28] MEDS: HYDROcodone/ACETAMIN 5-325 MG* 1 TAB PO PRN ×2 (03:44→08:22)
[2017-10-28 06:09] LABS: Hematocrit 33 % (35-47); Mean Corpuscular HGB Conc 34 g/dl (31-36); Mean Corpuscular Hemoglobin 31 pg (27-31); Mean Corpuscular Volume 91 fL (80-97); Mean Platelet Volume 9 um3 (7.4-10.4); Platelet Count 294 10^3/ul (150-450); Red Blood Count 3.58 10^6/ul (4.0-5.4); Red Cell Distribution Width 13 % (10.5-15); White Blood Count 8.4 10^3/ul (3.5-10.8)
[2017-10-28 06:22] LABS: EGFR Non-African American 87.9 (>60)
[2017-10-28 06:47] LABS: ABS Basophils 0 10^3/ul (0-0.2); ABS Eosinophils 0.2 10^3/ul (0-0.6); ABS Lymphocytes 2.8 10^3/ul (1.0-4.8); ABS Monocytes 0.8 10^3/ul (0-0.8); ABS Neutrophils 4.4 10^3/ul (1.5-7.7); ABS Nucleated RBC 0 10^3/ul; Eosinophil % 2.6 % (0-6); Lymphocyte % 33.4 % (25-47); Nucleated Red Blood Cells % 0
--- NOTE | 2017-10-28 07:57 | PN ---
Progress Note - Progress Note Date of Service: 10/28/17 SOAP: Subjective: [S/p CSF leak repair, POD #2. Lumbar discectomy L5-S1 on the right on 10/12/17. Feeling well this morning. Denies headache since surgery. Complains of low back pain from surgery; well controlled with PO meds. ] Objective: [ Vital Signs: Temp Pulse Resp BP Pulse Ox 97.5 F 66 16 125/85 100 10/28/17 03:47 10/28/17 03:47 10/28/17 05:53 10/28/17 03:47 10/28/17 03:47 General: Alert and laying comfortably in bed. Neuro: Motor and sensory intact. Incision: Intact and without swelling. Nontender. Extremities: Full ROM. ] Assessment: [Satisfactory post-op course. Headache resolved. ] Plan: [1. Discharge home today. 2. Discharge instructions discussed with the patient. ]
[2017-10-28] MEDS: traMADol TAB* 50 MG PO PRN (08:22)
[2017-10-28 08:23] VITALS: BP 115/75
--- NOTE | 2017-11-12 12:04 | DS ---
DISCHARGE SUMMARY: DATE OF ADMISSION: 10/23/17 DATE OF DISCHARGE: 10/28/17 ATTENDING PHYSICIAN: Dr. Beltran.* (DICTATED BY OTONIEL HOWARD) DISCHARGE DIAGNOSES: 1. Postoperative cerebrospinal fluid leak. 2. Postural headache. 3. Anxiety. 4. History of lumbar diskectomy L5-S1 on the right on 10/12/17. SPECIAL PROCEDURES: Repair of postoperative CSF leak at lumbar wound site. HOSPITAL COURSE: This 37-year-old female underwent lumbar diskectomy at L5-S1 on the right on 10/12/17. Several days after surgery, she developed a postural headache which did not improve with medications, rest, and conservative treatments. She presented to the [facility] for evaluation on 10/23/17. On 10/25/17 , MRI of the lumbar spine was obtained that showed a large fluid collection at the lumbar wound site consistent with possible postoperative seroma or CSF leak. Considering the patient's symptoms and MRI findings, she was taken back to the operating room for exploration of the wound and repair of CSF leak. The surgery took placed on 10/26/17. Postoperatively, she was required to remain flat in bed with head of bed flat. She was eating and drinking without difficulty. Pain was well controlled. Headache resolved relatively quickly and the patient was feeling well on postoperative day #1. On postop day #1, she was permitted to raise her head so as the headache did not return. On postoperative day #2, she continued to feel well and headache continued to be resolved. She did not complain of nausea, vomiting, or uncontrolled pain. On the second postoperative day, she was discharged home to the care of her family. Discharge instructions including wound care and activity level were discussed with the patient. DISCHARGE MEDICATIONS: Margaret 5/325 mg 1 to 2 tabs by mouth every 4 hours as needed for pain. FOLLOWUP: She will be seen in the office in approximately 2 weeks for followup and staple removal. She understands to call the office if the headache symptoms return or any other concerns arise. OTONIEL HOWARD [id number]/[facility] #: [id number] [facility] HOSPITALSherry
--- NOTE | 2017-11-12 13:11 | OP ---
DATE OF OPERATION: 10/26/17 - ROOM #346 DATE OF : 84 PRIMARY SURGEON: William Beltran MD CREDIT CONTROL ADMINISTRATOR: OTONIEL Yeh ANESTHESIA: General. PRE-OP DIAGNOSIS: Postoperative lumbar CSF leak. POST-OP DIAGNOSIS: Postoperative lumbar CSF leak. OPERATIVE PROCEDURE: Exploration of lumbar wound with repair of CSF leak with microdissection. DESCRIPTION OF PROCEDURE: After satisfactory general anesthesia was obtained, the patient was placed on the operating room table in a prone position with the chest supported on the Barak frame and the back slightly flexed. Her previous incision from L4 to the sacrum was infiltrated with 1% Xylocaine with epinephrine after which it was opened up to the subcutaneous tissues. Upon opening the skin, there was a copious discharge of clear fluid consistent with cerebrospinal fluid. 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 The previously placed facial sutures were removed and the dissection carried down to her previous laminectomy defect. The patient had been noted at the time of her initial surgery to have a spina bifida occulta involving her sacrum. After exposure of her previous laminectomy defect, the operating microscope was brought into the field and the remainder of the procedure done under microscopic visualization. Projecting over at the medial aspect of the exposure, at the inferior aspect of the L5 lamina and spinous process, it was noted to be small dural opening adjacent to a bony edge. The utilizing microdissection, this was dissected free from the overlying bone and additional bone removed to unable placement of a 4-0 Nurolon suture into this dural defect. This Nurolon suture was secured into position. Following this, a piece of fat was harvested from the subcutaneous tissues and placed over the repaired area with DuraSeal then placed in the region of the fat graft as well as her previous exposed dura over her sacral congenital defect. The fascia was entirely reapproximated with 0 Vicryl sutures. The subcutaneous tissues were closed with 3-0 Vicryl sutures and the skin was closed with a running locking Prolene suture. The estimated blood loss was less than 50 cc and a final sponge, padding, and needle counts were correct. The patient was taken to the recovery room extubated and in stable condition. [id number]/[facility] #: [id number] [facility]
== END 2017-10-28 11:20 | disposition home or self-care (01) | DRG 23 ==
LOC: ED 17:46 → SSU 18:46 → OBSVTOIN 10-26 09:30 → SSU 10-26 15:00
PROVIDERS: ADMIT Internal Medicine; ATTEND Neurological Surgery
PROC: 0QB00ZZ Excision of Lumbar Vertebra, Open Approach (ICD-10-PCS; 2017-10-26)
PROC: 00UT07Z Supplement Spinal Meninges with Autologous Tissue Substitute, Open Approach (ICD-10-PCS; principal; 2017-10-26 12:00)
DX: G97.82 Other postprocedural complications and disorders of nervous system (principal); G96.0 Cerebrospinal fluid leak; F41.9 Anxiety disorder, unspecified; F32.9 Major depressive disorder, single episode, unspecified; F12.90 Cannabis use, unspecified, uncomplicated; G89.29 Other chronic pain; F17.210 Nicotine dependence, cigarettes, uncomplicated; S31.010A Laceration without foreign body of lower back and pelvis without penetration into retroperitoneum, initial encounter; Z88.0 Allergy status to penicillin; Z88.8 Allergy status to other drugs, medicaments and biological substances; Z72.89 Other problems related to lifestyle; Z98.51 Tubal ligation status; Z90.710 Acquired absence of both cervix and uterus; Z82.49 Family history of ischemic heart disease and other diseases of the circulatory system; Z82.0 Family history of epilepsy and other diseases of the nervous system; Z80.1 Family history of malignant neoplasm of trachea, bronchus and lung; Z90.49 Acquired absence of other specified parts of digestive tract; Q76.0 Spina bifida occulta
CPT/HCPCS: 36415; 71045; 72158; 80048; 80053; 81003; 81015; 83605; 83735; 85025; 85610; 85652; 85730; 86140; 87086; 87502; 93005; 99284; A9270-GY; A9579; G0378; J0780; J1100; J2001; J2250; J2270; J2405; J2704; J3010

== ENCOUNTER 2017-11-07 11:27 | Emergency (ER) | payer OTHER ==
[2017-11-07] MEDS ORDERED: oxyCODONE/Acetamin 5/325 MG* TAB PO ONE (12:23)
[2017-11-07 12:40] LABS: Hematocrit 34 % (35-47); Hemoglobin 11.3 g/dl (12.0-16.0); Mean Corpuscular HGB Conc 34 g/dl (31-36); Mean Corpuscular Hemoglobin 31 pg (27-31); Mean Corpuscular Volume 91 fL (80-97); Mean Platelet Volume 7 um3 (7.4-10.4); Platelet Count 580 10^3/ul (150-450); Red Cell Distribution Width 13 % (10.5-15); White Blood Count 18.8 10^3/ul (3.5-10.8)
[2017-11-07 12:51] LABS: INR 1.02 (0.77-1.02)
[2017-11-07 12:59] LABS: EGFR Non-African American 109.5 (>60)
[2017-11-07 13:07] LABS: ABS Basophils 0.1 10^3/ul (0-0.2); ABS Eosinophils 0 10^3/ul (0-0.6); ABS Lymphocytes 2.1 10^3/ul (1.0-4.8); ABS Monocytes 1.6 10^3/ul (0-0.8); ABS Nucleated RBC 0 10^3/ul; Eosinophil % 0.2 % (0-6); Lymphocyte % 10.9 % (25-47); Nucleated Red Blood Cells % 0.1
[2017-11-07] MEDS ORDERED: Ondansetron INJ* 2 MG/ML VIAL IV ONE (13:09)
--- NOTE | 2017-11-07 14:00 | RAD ---
INDICATION: Postoperative low back pain. COMPARISON: Comparison is made with a prior MRI of the lumbar spine from October 25, 2017. TECHNIQUE: Contiguous axial sections were obtained beginning above the T12 vertebra and continuing through the L5-S1 disc space. Images were reconstructed in the sagittal and coronal planes. FINDINGS: There is mild retrolisthesis of L5 relative to S1 of approximately 3 mm. The vertebra are otherwise in normal alignment. No fracture is seen. The patient is status post right L5-S1 and hemilaminectomy. There is a small fluid collection seen at that level in the subcutaneous tissues centered just to the right of the midline which appears smaller than on the prior MRI study measuring 2.5 x 1.5 cm in size in previously measured 3.9 x 3.2 cm in size. This is better visualized on the prior MRI study. In addition, there appears to be a moderate right posterior lateral and far lateral disc protrusion which appears slightly more prominent than on the prior MRI study. This would likely impinge on the right S1 nerve root in the lateral recess and the right L5 nerve root in the foramen. The remaining intervertebral disc levels appear within normal limits. IMPRESSION: 1. STATUS POST RIGHT HEMILAMINECTOMY AT THE L5-S1 LEVEL. AT THAT LEVEL THERE IS A MODERATE SIZE RIGHT POSTEROLATERAL AND FAR LATERAL DISC PROTRUSION WHICH APPEARS SLIGHTLY MORE PROMINENT THAN ON THE PRIOR MRI STUDY. RECOMMEND A FOLLOW-UP OUTPATIENT MRI OF THE LUMBAR SPINE FOR FURTHER EVALUATION. 2. SMALL FLUID COLLECTION NOTED IN THE SUBCUTANEOUS TISSUES AT THE SURGICAL LEVEL DECREASED IN SIZE FROM THE PRIOR MRI EXAM.
[2017-11-07 14:21] VITALS: BP 125/81
--- NOTE | 2017-11-07 15:25 | ED ---
Hubert Canales Thomas, scribed for Brendan Lennon MD on 11/07/17 at 1223 . Back Pain - HPI Summary HPI Summary: The patient is a 37 year old female complaining of back pain that began one week ago. The pain is worsened by movement. The pain is rated 10/10. She describes the pain as pressure. She was recently admitted to [facility] and discharged on 10/26/17. She did not have significant pain until about 10/31/17. She has a history of chronic low back pain and a laminectomy at L4-L5. - History of Current Complaint Chief Complaint: EDBackInjuryPain Stated Complaint: PAIN AND SWELLING, LOWER BACK Time Seen by Provider: 11/07/17 12:07 Hx Obtained From: Patient Onset/Duration: Lasting Weeks - 1, Still Present Onset/Duration: Still Present Timing: Constant Back Pain Location: Is Discrete @ - lower back Severity Currently: Severe Pain Intensity: 10 Pain Scale Used: 0-10 Numeric Character: Unable to Describe - pressure Aggravating Symptom(s): Movement Alleviating Symptom(s): Nothing Associated Signs And Symptoms: Negative: Fever - Allergies/Home Medications Allergies/Adverse Reactions: Allergies Allergy/AdvReac Type Severity Reaction Status Date / Time aspirin Allergy Anaphylatic Verified 10/23/17 19:50 Shock Penicillins Allergy Anaphylatic Verified 10/23/17 19:50 Shock PMH/Surg Hx/FS Hx/Imm Hx Endocrine/Hematology History: Denies: Hx Diabetes Cardiovascular History: Denies: Hx Coronary Artery Disease, Hx Hypertension, Hx Pacemaker/ICD Respiratory History: Reports: Other Respiratory Problems/Disorders - smoker Musculoskeletal History: Reports: Other Musculoskeletal History - back pain Sensory History: Denies: Hx Contacts or Glasses, Hx Hearing Aid Opthamlomology History: Denies: Hx Contacts or Glasses Neurological History: Psychiatric History: Reports: Hx Anxiety - prn med, Hx Depression - prn med Denies: Hx Panic Disorder - Surgical History Surgery Procedure, Year, and Place: bilateral ear tubes placed as a child - [place]. D&C - 2006 [place]. tubal ligation - 2006. hysterectomy 2012. hernia repair 2014 - Hx Anesthesia Reactions: No Infectious Disease History: No Infectious Disease History: Denies: Hx of Known/Suspected MRSA, Traveled Outside the [place] in Last 30 Days - Family History Known Family History: Positive: Hypertension, Other Family History: Lung CA, Alzheimer's, sleep apnea - Social History Alcohol Use: Rare Substance Use Type: Reports: Marijuana Substance Use Comment - Amount & Last Used: reports as needed - last used Smoking Status (MU): Light Every Day Tobacco Smoker Type: Cigarettes Amount Used/How Often: reports down to 5-10 per day for approx 7 years Review of Systems Negative: Fever Positive: Other - Low back pain All Other Systems Reviewed And Are Negative: Yes Physical Exam - Summary Physical Exam Summary: Appearance: The patient is well-nourished in no acute distress and in no acute pain. Skin: The skin is warm and dry and skin color reflects adequate perfusion. HEENT: The head is normocephalic and atraumatic. The pupils are equal and reactive. The conjunctivae are clear and without drainage. Nares are patent and without drainage. Mouth reveals moist mucous membranes and the throat is without erythema and exudate. The external ears are intact. The ear canals are patent and without drainage. The tympanic membranes are intact. Neck: the neck is supple with full range of motion and non-tender. There are no carotid bruits. There is no neck vein distension. Respiratory: Chest is non-tender. Lungs are clear to auscultation and breath sounds are symmetrical and equal. Cardiovascular: Heart is regular rate and rhythm. There is no murmur or rub auscultated. There is no peripheral edema and pulses are symmetrical and equal. Abdomen: The abdomen is soft and non-tender. There are normal bowel sounds heard in all four quadrants and there is no organomegaly palpated. Musculoskeletal: Extremities are non-tender with full range of motion. There is good capillary refill. There is no peripheral edema or calf tenderness elicited. Back: The surgical sound on her back is clean. She is tender anywhere around the wound to very, very light touch. Neurological: Patient is alert and oriented to person, place and time. The patient has symmetrical motor strength in all four extremities. Cranial nerves are grossly intact. Deep tendon reflexes are symmetrical and equal in all four extremities. Psychiatric: The patient has an appropriate affect and does not exhibit any anxiety or depression. Triage Information Reviewed: Yes Vital Signs On Initial Exam: Initial Vitals Temp Pulse Resp BP Pulse Ox 98.8 F 108 22 139/84 100 11/07/17 11:37 11/07/17 11:37 11/07/17 11:37 11/07/17 11:37 11/07/17 11:37 Vital Signs Reviewed: Yes Diagnostics - Vital Signs Vital Signs Temp Pulse Resp BP Pulse Ox 11/07/17 11:37 98.8 F 108 22 139/84 100 - Laboratory Lab Results: Lab Results 11/07/17 11/07/17 11/07/17 Range/Units 12:30 12:30 12:30 WBC 18.8 H (3.5-10.8) 10^3/ul RBC 3.70 L (4.0-5.4) 10^6/ul Hgb 11.3 L (12.0-16.0) g/dl Hct 34 L (35-47) % MCV 91 (80-97) fL MCH 31 (27-31) pg MCHC 34 (31-36) g/dl RDW 13 (10.5-15) % Plt Count 580 H D (150-450) 10^3/ul MPV 7 L (7.4-10.4) um3 Neut % (Auto) 79.9 (38-83) % Lymph % (Auto) 10.9 L (25-47) % [place] % (Auto) 8.5 (1-9) % Eos % (Auto) 0.2 (0-6) % Baso % (Auto) 0.5 (0-2) % Absolute Neuts (auto) 15.0 H (1.5-7.7) 10^3/ul Absolute Lymphs (auto) 2.1 (1.0-4.8) 10^3/ul Absolute Monos (auto) 1.6 H (0-0.8) 10^3/ul Absolute Eos (auto) 0 (0-0.6) 10^3/ul Absolute Basos (auto) 0.1 (0-0.2) 10^3/ul Absolute Nucleated RBC 0 10^3/ul Nucleated RBC % 0.1 INR (Anticoag Therapy) 1.02 (0.77-1.02) Sodium 141 (133-145) mmol/L Potassium 3.3 L (3.5-5.0) mmol/L Chloride 105 (101-111) mmol/L Carbon Dioxide 26 (22-32) mmol/L Anion Gap 10 (2-11) mmol/L BUN 14 (6-24) mg/dL Creatinine 0.62 (0.51-0.95) mg/dL Est GFR ( Amer) 140.9 (>60) Est GFR (Non-Af Amer) 109.5 (>60) BUN/Creatinine Ratio 22.6 H (8-20) Glucose 93 (70-100) mg/dL Lactic Acid (0.5-2.0) mmol/L Calcium 9.4 (8.6-10.3) mg/dL Total Bilirubin 0.20 (0.2-1.0) mg/dL AST 22 (13-39) U/L ALT 57 H (7-52) U/L Alkaline Phosphatase 109 H (34-104) U/L C-Reactive Protein 35.38 H (< 5.00) mg/L Total Protein 7.8 (6.4-8.9) g/dL Albumin 4.1 (3.2-5.2) g/dL Globulin 3.7 (2-4) g/dL Albumin/Globulin Ratio 1.1 (1-3) 11/07/17 Range/Units 12:30 WBC (3.5-10.8) 10^3/ul RBC (4.0-5.4) 10^6/ul Hgb (12.0-16.0) g/dl Hct (35-47) % MCV (80-97) fL MCH (27-31) pg MCHC (31-36) g/dl RDW (10.5-15) % Plt Count (150-450) 10^3/ul MPV (7.4-10.4) um3 Neut % (Auto) (38-83) % Lymph % (Auto) (25-47) % [place] % (Auto) (1-9) % Eos % (Auto) (0-6) % Baso % (Auto) (0-2) % Absolute Neuts (auto) (1.5-7.7) 10^3/ul Absolute Lymphs (auto) (1.0-4.8) 10^3/ul Absolute Monos (auto) (0-0.8) 10^3/ul Absolute Eos (auto) (0-0.6) 10^3/ul Absolute Basos (auto) (0-0.2) 10^3/ul Absolute Nucleated RBC 10^3/ul Nucleated RBC % INR (Anticoag Therapy) (0.77-1.02) Sodium (133-145) mmol/L Potassium (3.5-5.0) mmol/L Chloride (101-111) mmol/L Carbon Dioxide (22-32) mmol/L Anion Gap (2-11) mmol/L BUN (6-24) mg/dL Creatinine (0.51-0.95) mg/dL Est GFR ( Amer) (>60) Est GFR (Non-Af Amer) (>60) BUN/Creatinine Ratio (8-20) Glucose (70-100) mg/dL Lactic Acid 1.0 (0.5-2.0) mmol/L Calcium (8.6-10.3) mg/dL Total Bilirubin (0.2-1.0) mg/dL AST (13-39) U/L ALT (7-52) U/L Alkaline Phosphatase (34-104) U/L C-Reactive Protein (< 5.00) mg/L Total Protein (6.4-8.9) g/dL Albumin (3.2-5.2) g/dL Globulin (2-4) g/dL Albumin/Globulin Ratio (1-3) Result Diagrams: 11/07/17 12:30 11/07/17 12:30 Lab Statement: Any lab studies that have been ordered have been reviewed, and results considered in the medical decision making process. - CT CT L-Spine CT Interpretation: Positive (See Comments) - 1. STATUS POST RIGHT HEMILAMINECTOMY AT THE L5-S1 LEVEL. AT THAT LEVEL THERE IS A MODERATE SIZE RIGHT POSTEROLATERAL AND FAR LATERAL DISC PROTRUSION WHICH APPEARS SLIGHTLY MORE PROMINENT THAN ON THE PRIOR MRI STUDY. RECOMMEND A FOLLOW-UP OUTPATIENT MRI OF THE LUMBAR SPINE FOR FURTHER EVALUATION. 2. SMALL FLUID COLLECTION NOTED IN THE SUBCUTANEOUS TISSUES AT THE SURGICAL LEVEL DECREASED IN SIZE FROM THE PRIOR MRI EXAM. Dr. Lennon has reviewed this report. CT Interpretation Completed By: Radiologist Back Pain Course/Dx - Course Course Of Treatment: Ms. Villarreal presented C/O severe low back pain that started about the . She was improving after her surgery to drain a fluid collection on the . The fluid collection was post op from a surgery on the 18 of October. The fluid collection was felt to be a CSF leak prior to the second surgery. I don't have a procedural note or a D/C summary at this time. She seemed to have a great deal of pain and stated that she was given only a few pain pills after the surgery and that they were all gone. Her WBCs returned at 18.8 with an ANC of 15. Her platelets are also up as is her BUN/ Creat and some of this elevation is likely dehydration. CT of her spine showed small residual fluid collection and a disc protrusion but no abscess. I spoke with Dr. Beltran secondary to the elevated WBCs and the fact that the documentation is not in the computer She has an appointment with him on and he felt that she was safe for D/C and to keep that appointment. When I discussed this with her she stated that she didn't have any pain medications. I pointed out that she had filled a script for #60 10 mg oxycodone tabs on the . She stated that the pharmacy only gave her a few. I pointed out that it was documented that they gave her 60. I pointed out that she had also filled a script for #60 norco on the and she stated that she had turned them back in to the pharmacy because they didn't help. Dr. Beltran had previously told me that he had given her the oxycodone script because she reported accidently knocking the pill bottle off her sink and into the toilet. She has a slight ALP elevation on her labs also with could be from tylenol. I think there is good evidence that she is drug-seeking. She may have diverted the meds or she may be taking quite a lot and her presentation today could be early withdrawal. I recommended she not take tylenol and that she F/U with her PMD tomorrow and Dr. Beltran on . I can not in good conscience give her pain medications at this time. - Diagnoses Provider Diagnoses: Drug-seeking behavior, Low back pain, Postoperative pain - Provider Notifications Discussed Care Of Patient With: William Beltran Time Discussed With Above Provider: 13:19 Instructed by Provider To: Other - Dr. Beltran, neurosurgery, wants us to rule out infection. He thinks the patient can follow up on Wednesday. Discharge - Discharge Plan Condition: Stable Disposition: HOME Patient Education Materials: Pain Management After Surgery (GEN), Back Pain (ED ) Referrals: William Beltran MD [Medical Doctor] - 11/11/17 Additional Instructions: Take your pain medication that you have at home. Follow up with Dr. Beltran on your previously scheduled appointment on , 11/11/17. Return to the emergency department for any new or worsening symptoms. The documentation as recorded by the Hubert guillermo Thomas accurately reflects the service I personally performed and the decisions made by me, Brendan Lennon MD.
== END 2017-11-07 14:19 | disposition home or self-care (01) ==
LOC: ED 11:27
DX: M54.5 Low back pain (principal); Z98.890 Other specified postprocedural states; Z76.5 Malingerer [conscious simulation]; Z88.6 Allergy status to analgesic agent; Z88.0 Allergy status to penicillin; F17.210 Nicotine dependence, cigarettes, uncomplicated
CPT/HCPCS: 36415; 72131; 80053; 83605; 85025; 85610; 86140; 87040; 96374; 99283; A9270-GY; J2405

== ENCOUNTER 2017-11-09 16:34 | Inpatient (IN) | payer OTHER ==
[2017-11-09] MEDS ORDERED: oxyCODONE TAB* 5 MG TAB PO ONE (20:02)
[2017-11-09 20:50] LABS: ABS Basophils 0 10^3/ul (0-0.2); ABS Eosinophils 0.1 10^3/ul (0-0.6); ABS Lymphocytes 2.6 10^3/ul (1.0-4.8); ABS Monocytes 1.4 10^3/ul (0-0.8); ABS Neutrophils 10.9 10^3/ul (1.5-7.7); ABS Nucleated RBC 0 10^3/ul; Eosinophil % 0.4 % (0-6); Hematocrit 32 % (35-47); Hemoglobin 10.6 g/dl (12.0-16.0); Lymphocyte % 17.1 % (25-47); Mean Corpuscular HGB Conc 33 g/dl (31-36); Mean Corpuscular Hemoglobin 30 pg (27-31); Mean Corpuscular Volume 91 fL (80-97); Mean Platelet Volume 7 um3 (7.4-10.4); Nucleated Red Blood Cells % 0; Platelet Count 565 10^3/ul (150-450); Red Blood Count 3.54 10^6/ul (4.0-5.4); Red Cell Distribution Width 13 % (10.5-15)
[2017-11-09 20:58] LABS: INR 1.16 (0.77-1.02)
[2017-11-09 21:05] LABS: EGFR Non-African American 107.5 (>60)
[2017-11-09 22:14] LABS: Urine Appearance Cloudy; Urine Blood 1+ (Negative); Urine Color Yellow; Urine Ketones Negative (Negative); Urine Protein Negative (Negative); Urine Specific Gravity 1.015 (1.010-1.030); Urine Urobilinogen Negative (Negative)
[2017-11-09] MEDS ORDERED: metroNIDAZOLE IV 500 MG/100ML* 500 MG/100 ML BAG IVPB ONE (22:15)
[2017-11-09] MEDS ORDERED: Vancomycin(*) 1,500 MG in NS 0.9% 250 ML* 250 ML IVPB ONE (22:15)
[2017-11-09] MEDS ORDERED: cefTRIAXone(*) 2 GM in NS 0.9% 100 ML* 100 ML IVPB ONE (22:15)
[2017-11-09] MEDS ORDERED: Ondansetron INJ* 2 MG/ML VIAL IV ONE (23:02)
[2017-11-09] MEDS ORDERED: Morphine INJ* 10 MG/ML 1 ML CARPUJECT IV ONE (23:02)
[2017-11-10] MEDS ORDERED: Gadoteridol* (CONTRAST) 279.3 MG/ML 10 ML IV ONE (00:45)
[2017-11-10] MEDS ORDERED: NS 0.9% 250 ML* 250 ML ONE (02:44)
[2017-11-10] MEDS ORDERED: Morphine INJ* 4 MG/ML 1 ML SYRINGE (NEW SYRINGE VERSION) IV PRN (03:15)
[2017-11-10] MEDS ORDERED: Ondansetron INJ* 2 MG/ML VIAL IV PRN ×2 (03:15→05:23)
[2017-11-10] MEDS ORDERED: Morphine INJ* 4 MG/ML 1 ML SYRINGE (NEW SYRINGE VERSION) ONE (03:21)
[2017-11-10] MEDS ORDERED: Bacitracin IV* 50,000 UNITS INJ ONE (04:17)
[2017-11-10] MEDS ORDERED: Lidocaine 1% MPF wEPI 200,000* 30 ML SDV ONE (04:17)
[2017-11-10] MEDS ORDERED: Thrombin 5,000 UNITS* 1 APPLIC KIT - topical use - TOPICAL ONE (04:17)
[2017-11-10] MEDS ORDERED: Propofol* 10 MG/ML 20 ML BTL IV PUSH ONE (04:34)
[2017-11-10] MEDS ORDERED: fentaNYL* 50 MCG/ML 2 ML VIAL (100 MCG VIAL) ONE ×3 (04:34→06:44)
[2017-11-10] MEDS ORDERED: Midazolam* 1 MG/ML 5 ML VIAL (5 MG) ONE (04:34)
[2017-11-10] MEDS ORDERED: Atracurium* 10 MG/ML 10 ML VIAL ONE (04:34)
[2017-11-10] MEDS ORDERED: Naloxone* 0.4 MG/ML 1 ML VIAL IV PRN (05:23)
[2017-11-10] MEDS ORDERED: HYDROmorphone INJ* 1 MG/ML CARPUJECT SYRINGE IV PRN (05:23)
[2017-11-10] MEDS ORDERED: DiMENhydriNATE IV* 50 MG/ML VIAL IV PUSH PRN (05:23)
[2017-11-10] MEDS ORDERED: Ondansetron INJ* 2 MG/ML VIAL ONE (05:26)
[2017-11-10] MEDS ORDERED: Neostigmine Methylsulfate* 2 MG/2 ML SYRINGE ONE (05:39)
[2017-11-10] MEDS ORDERED: Glycopyrrolate IV* 0.2 MG/ML 1 ML VIAL ONE (05:39)
[2017-11-10] MEDS ORDERED: HYDROmorphone INJ* 2 MG/ML CARPUJECT SYRINGE ONE (06:03)
[2017-11-10] MEDS: fentaNYL* 50 MCG/ML 2 ML VIAL (100 MCG VIAL) IV PRN ×5 (06:04→06:45)
[2017-11-10] MEDS ORDERED: Vancomycin per Pharmacy* NOTE FOLLOW UP PRN (06:17)
[2017-11-10] MEDS ORDERED: Morphine INJ* 4 MG/ML 1 ML CARPUJECT IV ONE ×2 (06:37→06:47)
--- NOTE | 2017-11-10 07:24 | HP ---
CC: Dr. Greene * HISTORY AND PHYSICAL: DATE OF ADMISSION: 11/10/17. PRIMARY CARE PROVIDER: Dr. Greene. NEUROSURGEON: Dr. Beltran. CHIEF COMPLAINT: Back pain. HISTORY OF PRESENT ILLNESS: Ms. Villarreal is a 37-year-old female who on 10/12/17 had an L5-S1 diskectomy. Patient unfortunately was readmitted from 10/23/17 through 10/28/17, where she was treated for a dural tear with CSF leak headache. Patient went back to the OR on 10/26/17. The patient was discharged home, feeling okay. Over the course of the last 2 weeks, the patient more recently has developed low- grade fevers and back pain. Patient ultimately presented to the emergency room today with complaints of severe back pain and difficulty ambulating. She states that she fell down some stairs because of feeling weak as well. Of note, the patient was seen in the emergency room on 11/07/17 with complaints of back pain. At that time, the patient was found to have an elevated white blood cell count of 18,000 and CRP of 35.38. The patient was discharged home at that point. Today, the patient was found to have CRP of 155.58 and white count of 15,000. Patient still complaints of back pain. She states lying on the MRI table did exacerbate her pain some. She notes that the incision appears to be bulging but she is not noticed any leakage from the incision. PAST MEDICAL HISTORY: 1. Anxiety/depression. 2. Chronic back pain, status post L5-S1 diskectomy with subsequent dural tear with CSF leak requiring operative repair. PAST SURGICAL HISTORY: 1. Above mentioned L5-S1 diskectomy with subsequent dural tear repair. 2. Appendectomy. 3. Cholecystectomy. 4. Hysterectomy. 5. Hernia repair. 6. D and C. 7. Tubal ligation. MEDICATIONS: 1. Relafen 500 mg p.o. b.i.d. 2. Gabapentin 300 mg p.o. b.i.d. 3. Estradiol 1 mg p.o. daily. 4. Xanax 0.5 mg p.o. b.i.d. p.r.n. anxiety. ALLERGIES: ASPIRIN and PENICILLIN. FAMILY HISTORY: Both parents are alive and have a history of high blood pressure. SOCIAL HISTORY: The patient has been a smoker. She does not drink alcohol. She smokes approximately half pack for 10 to 15 years. She indicates that her mother is her healthcare proxy. REVIEW OF SYSTEMS: Complete 11 system review of systems was obtained. Pertinent positives and negatives are as per HPI and otherwise negative. PHYSICAL EXAMINATION GENERAL: Patient is a well-developed, young female, seen lying in stretcher, in no acute distress. VITAL SIGNS: Blood pressure 110/93, pulse 89, respirations 20, temp 98.3, T- max 100.7, O2 sat 97% on room air. HEENT: Pupils are equal and round. Extraocular muscles intact. Oropharynx is clear. Oral mucosa is moist. There is no submandibular, cervical or supraclavicular adenopathy. Thyroid is not enlarged. No thyroid nodules are noted. PULMONARY: Lungs are clear to auscultation bilaterally. CARDIAC: Normal S1, S2. Regular rate and rhythm. I do not appreciate any murmurs. There is no lower extremity edema. ABDOMEN: Bowel sounds present. Abdomen is soft, nontender, nondistended. MUSCULOSKELETAL: There is no cyanosis or clubbing of the digits. There is full active range of motion of all 4 extremities. NEUROLOGIC: Cranial nerves II through XII are grossly intact. Sensation is intact to light touch throughout. Strength is 5/5 and symmetric in both upper and lower extremities bilaterally. PSYCH: Patient is alert. She is oriented x3. Affect appears appropriate. SKIN: Warm and dry. There are no rashes. The lumbar incision appears to be intact. There is no drainage. DIAGNOSTIC STUDIES/LAB DATA: WBC 15.0, hemoglobin 10.6, hematocrit 32, platelets 565. INR 1.16. Sodium 139, potassium 3.5, chloride 103, CO2 28, BUN 12, creatinine 0.63, glucose 100, lactic acid 0.6, calcium 9.7, bilirubin 0.5, AST 15, ALT 32, alk phos 102, CRP 155.58, albumin 4.0. Urinalysis was negative for signs of infection. Influenza A and B negative. MRI lumbar spine, there are two interconnected paraspinal rim enhancing fluid collections suspected to represent abscesses with a 6.1 x 2.1 cm collection contiguous with the laminectomy site and a 6.4 x 0.6 cm collection in the subcutaneous tissue. No epidural abscess was noted. There is possible osteomyelitis of L5 and S1 without definitive evidence of diskitis. There is a small to moderate size residual right central L5-S1 disk herniation, which moderately narrows the right lateral recess and compresses with descending right S1 nerve root. ASSESSMENT AND PLAN: Ms. Villarreal is a 37-year-old female who status post L5-S1 diskectomy 10/12/17 with subsequent CSF leak secondary to a dural tear, status post operative repair on 10/26/17, who now presents to the emergency room with complaints of severe back pain and was found to have probable paraspinal abscess. 1. Paraspinal abscess. For now, the patient will be placed on broad spectrum antibiotics including vancomycin and cefepime. Blood cultures have been sent. I have contacted Dr. Beltran, who coming into the hospital to see the patient. She will need likely be taken for urgent incision and drainage and debridement. ID consultation will be requested for appropriate antibiotic choice and duration of therapy. 2. Anxiety/depression. We will continue p.r.n. Xanax. 3. Chronic back pain. Continue gabapentin and nabumetone. 4. DVT prophylaxis. According to the Adult Thrombosis Prophylaxis Risk Factor Assessment Guide, the patient has a total risk factor score of 2 making her moderate risk. For now, SCDs will be utilized as DVT prophylaxis as the patient will be going urgently to the operating room when okayed by Dr. Beltran. Patient should be transitioned to subcu heparin. 5. Code status is full and again the patient indicates that her mom, Gabriela, is her healthcare proxy. TIME SPENT: Sixty five minutes was spent admitting this patient. [id number]/[facility] #: [id number] SUMANTH
[2017-11-10] MEDS ORDERED: oxyCODONE TAB* 5 MG TAB ONE (07:26)
[2017-11-10] MEDS: oxyCODONE TAB* 5 MG TAB PO PRN ×4 (07:28→20:27)
--- NOTE | 2017-11-10 08:05 | RAD ---
INDICATION: Low back pain after L5-S1 lumbar discectomy on October 12, 2017 COMPARISON: Similar MRI dated October 25, 2017 TECHNIQUE: Coronal hip hop performers, 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 FINDINGS: The spinal cord terminates at the L1 level. There are no intrinsic abnormalities of the visualized cord. The patient is status post right L5 hemilaminectomy. At the laminectomy site and within the right erector spinae muscle there is a mostly fluid intensity well-circumscribed collection measuring 2.1 x 2.7 cm in the axial plane (axial image 38 of 50). Evaluation of pre and post contrast T1-weighted imaging shows peripheral enhancement of the fluid collection. This collection abuts but does not appear to penetrate the thecal sac. At approximately the same level, beneath the dermis there is a subcutaneous fluid collection that measures 2.1 x 0.9 cm in the axial plane that also exhibits peripheral enhancement. IMPRESSION: MRI findings are compatible with peripherally enhancing abscesses in the right L5 level erector spinae musculature and the right of midline L5 level subcutaneous fat. The more superficial abscess is much smaller than the previous MRI measuring approximately 0.9 x 2.1 cm in the axial plane, reduced from 2.7 x 3.4 cm on the October 25, 2017 MRI. The deeper intramuscular abscess, abutting but not definitely penetrating the thecal sac, is new since the previous MRI.
[2017-11-10] MEDS: NS 0.9% 1000 ML* 1,000 ML IV SCH (08:15)
[2017-11-10] MEDS: Morphine INJ* 4 MG/ML 1 ML CARPUJECT IV PRN ×4 (08:15→22:23)
--- NOTE | 2017-11-10 08:55 | PN ---
Progress Note - Progress Note Date of Service: 11/10/17 SOAP: Subjective: [Post-op lumbar wound infection, s/p wash out and reclosure 0300 today. Patient complaining of low back pain and discomfort. Denies headache and nausea. Pain management with IV and PO pain meds. ] Objective: [ Vital Signs: Temp Pulse Resp BP Pulse Ox 99.0 F 89 16 116/79 96 11/10/17 07:57 11/10/17 07:57 11/10/17 08:19 11/10/17 07:57 11/10/17 07:57 General: Alert. Slightly restless in bed, trying to find comfortable position. Neuro: Motor and sensory intact. Incision: Dressing intact, no swelling. Wound drain in place and functioning. Extremities: Full ROM. ] Assessment: [S/p lumbar post-op wound abscess wash out. Stable.] Plan: [1. Continue pain management. 2. Out of bed as tolerated. 3. ID consult pending. ]
--- NOTE | 2017-11-10 10:21 | PN ---
Subjective Date of Service: 11/10/17 Interval History: Patient seen and examined at bedside. Denies fever, chills, shortness of breath , chest discomfort, N/V/D. Pt reports extreme pain in her lower back feeling like "both sides are being crushed", she also reports numbness in her right LE from the knee down posterior and anterior. She is able to wiggle her toes bilateral. Pt is requesting her pain medications be increased. Family History: Unchanged from Admission Social History: Unchanged from Admission Past Medical History: Unchanged from Admission Objective Active Medications: Acetaminophen (Tylenol Tab*) 650 mg PO Q4H PRN Reason: PAIN Sodium Chloride (Ns 0.9% 1000 Ml*) 1,000 mls @ 100 mls/hr IV PER RATE EDWIN Vancomycin HCl 1,000 mg/ (Sodium Chloride) 250 mls @ 166.667 mls/hr IVPB Q8H EDWIN Ceftriaxone Sodium 1 gm/ (Dextrose) 50 mls @ 200 mls/hr IVPB Q24H EDWIN Morphine Sulfate (Morphine Inj (Syringe)*) 4 mg IV Q4H PRN Reason: PAIN Naloxone HCl (Narcan*) 0.08 mg IV Q2M PRN Reason: severe induced resp depression Stop: 11/11/17 05:22 Ondansetron HCl (Zofran Inj*) 4 mg IV Q6H PRN Reason: NAUSEA Oxycodone HCl (Roxycodone Tab*) 10 mg PO Q4H PRN Reason: PAIN Pharmacy Consult (Vancomycin Per Pharmacy*) 1 note FOLLOW UP . PRN Pharmacy Profile Note (Vancomycin Trough Check) 1 note FOLLOW UP ONCE ONE Stop: 11/11/17 09:31 Vital Signs - 8 hr 11/10/17 11/10/17 11/10/17 03:23 03:47 04:00 Temperature Pulse Rate 88 102 Respiratory 20 Rate Blood Pressure 120/78 118/73 (mmHg) O2 Sat by Pulse 97 97 Oximetry 11/10/17 11/10/17 11/10/17 04:15 05:57 06:00 Temperature 99.8 F 96.8 F Pulse Rate 92 109 106 Respiratory 20 16 18 Rate Blood Pressure 120/78 128/88 126/112 (mmHg) O2 Sat by Pulse 97 100 100 Oximetry 11/10/17 11/10/17 11/10/17 06:04 06:05 06:08 Temperature Pulse Rate 106 Respiratory 20 16 18 Rate Blood Pressure 118/63 (mmHg) O2 Sat by Pulse 99 Oximetry 11/10/17 11/10/17 11/10/17 06:15 06:19 06:30 Temperature Pulse Rate 103 98 Respiratory 16 18 16 Rate Blood Pressure 111/74 121/91 (mmHg) O2 Sat by Pulse 99 100 Oximetry 11/10/17 11/10/17 11/10/17 06:45 07:15 07:30 Temperature 99.0 F 99.1 F Pulse Rate 94 100 103 Respiratory 16 16 16 Rate Blood Pressure 127/73 125/82 108/78 (mmHg) O2 Sat by Pulse 98 99 98 Oximetry 11/10/17 11/10/17 11/10/17 07:45 07:57 08:15 Temperature 99.0 F Pulse Rate 100 89 Respiratory 16 16 16 Rate Blood Pressure 110/80 116/79 (mmHg) O2 Sat by Pulse 98 96 Oximetry 11/10/17 08:19 Temperature Pulse Rate Respiratory 16 Rate Blood Pressure (mmHg) O2 Sat by Pulse Oximetry Oxygen Devices in Use Now: None Appearance: Uncomfortable appearing from pain, laying in bed Ears/Nose/Mouth/Throat: Mucous Membranes Moist Respiratory: Symmetrical Chest Expansion and Respiratory Effort, Clear to Auscultation Cardiovascular: NL Sounds; No Murmurs; No JVD, RRR Abdominal: NL Sounds; No Tenderness; No Distention Extremities: No Edema Skin: - - Dressing to midline lower back clean, dry and intact Neurological: Alert and Oriented x 3, NL Muscle Strength and Tone Lines/Tubes/Other Access: Clean, Dry and Intact Peripheral IV - site benign Nutrition: Taking PO's Result Diagrams: 11/09/17 20:38 11/09/17 20:38 Microbiology and Other Data: Microbiology 11/10/17 05:25 Gram Stain - Final Misc Fluid (See Comment) - Abscess Skin and Soft Tissue MRSA/MSSA (PCR - Final Mrsa Negative S.aureus Negative Assess/Plan/Problems-Billing Assessment: Ms. Villarreal is a 37 yo female with PMH significant for recent L5-S1 diskectomy with subsequent CSF leak secondary to a dural tear, S/P repair, who presetned to the emergency room with complaints of severe back pain and was found to have a probable paraspinal abscess. - Patient Problems (1) Paraspinal abscess Code(s): M46.20 - OSTEOMYELITIS OF VERTEBRA, SITE UNSPECIFIED SNOMED Code(s): 75548783416100952 Comment: - S/P I+D, POD. - Afebrile, leukocytosis - Management per Neurosurgery - ID consult, pending - Blood cultures, pending - Wound culture, pending - Will have a PICC line placed today - Continue Vancomycin and cefepime (2) Anxiety and depression Code(s): F41.8 - OTHER SPECIFIED ANXIETY DISORDERS SNOMED Code(s): 621188318 Comment: Supportive care and Xanax PRN (3) Chronic back pain Code(s): M54.9 - DORSALGIA, UNSPECIFIED; G89.29 - OTHER CHRONIC PAIN SNOMED Code(s): 474001822 Comment: - Continue gabapentin and nabumetone (4) DVT prophylaxis Code(s): NAE9483 - SNOMED Code(s): 604297800 Comment: - SCDs (5) Full code status Code(s): Z78.9 - OTHER SPECIFIED HEALTH STATUS SNOMED Code(s): 384210279 Status and Disposition: Inpatient. Discharge to home when medically stable, suspect she will require senior care IV ABX.
[2017-11-10] MEDS: ALPRAZolam TAB* 0.5 MG PO PRN ×2 (10:43→20:27)
[2017-11-10] MEDS: Vancomycin(*) 1,000 MG in NS 0.9% 250 ML* 250 ML IVPB SCH ×2 (12:23→17:56)
[2017-11-10] MEDS: Nabumetone TAB* 500 MG PO SCH (20:26)
[2017-11-10] MEDS: Gabapentin CAP(*) 300 MG PO SCH (20:26)
[2017-11-10] MEDS ORDERED: cefTRIAXone(*) 1 GM in D5W 50 ML BAG* 50 ML IVPB SCH (22:00)
[2017-11-11] MEDS: Morphine INJ* 4 MG/ML 1 ML SYRINGE (NEW SYRINGE VERSION) IV PRN ×3 (02:27→19:31)
[2017-11-11] MEDS: Vancomycin(*) 1,000 MG in NS 0.9% 250 ML* 250 ML IVPB SCH ×3 (02:28→17:31)
[2017-11-11] MEDS: NS 0.9% 1000 ML* 1,000 ML IV SCH ×2 (02:31→16:16)
[2017-11-11] MEDS: oxyCODONE TAB* 5 MG TAB PO PRN ×5 (03:38→21:59)
[2017-11-11 05:38] LABS: ABS Basophils 0.1 10^3/ul (0-0.2); ABS Eosinophils 0.1 10^3/ul (0-0.6); ABS Lymphocytes 2.3 10^3/ul (1.0-4.8); ABS Monocytes 1.2 10^3/ul (0-0.8); ABS Neutrophils 6.7 10^3/ul (1.5-7.7); ABS Nucleated RBC 0 10^3/ul; Eosinophil % 1.4 % (0-6); Hematocrit 28 % (35-47); Hemoglobin 9.5 g/dl (12.0-16.0); Lymphocyte % 21.7 % (25-47); Mean Corpuscular HGB Conc 34 g/dl (31-36); Mean Corpuscular Hemoglobin 31 pg (27-31); Mean Corpuscular Volume 91 fL (80-97); Mean Platelet Volume 7 um3 (7.4-10.4); Nucleated Red Blood Cells % 0; Platelet Count 443 10^3/ul (150-450); Red Cell Distribution Width 13 % (10.5-15); White Blood Count 10.4 10^3/ul (3.5-10.8)
[2017-11-11] MEDS: Nabumetone TAB* 500 MG PO SCH ×2 (09:12→21:58)
[2017-11-11] MEDS: Gabapentin CAP(*) 300 MG PO SCH ×2 (09:13→21:58)
--- NOTE | 2017-11-11 09:18 | PN ---
Subjective Date of Service: 11/11/17 Interval History: Patient seen and examined. States her back is "sore" but improved from yesterday. States some radiating pain down left leg at times, otherwise feeling better. Denies fever or chills, no SOB, no chest pain, no n/v. Family History: Unchanged from Admission Social History: Unchanged from Admission Past Medical History: Unchanged from Admission Objective Active Medications: Acetaminophen (Tylenol Tab*) 650 mg PO Q4H PRN PRN Reason: PAIN Alprazolam (Xanax Tab*) 0.5 mg PO BID PRN PRN Reason: ANXIETY Last Admin: 11/10/17 20:27 Dose: 0.5 mg Gabapentin (Neurontin Cap(*)) 300 mg PO BID EDWIN Last Admin: 11/10/17 20:26 Dose: 300 mg Heparin Sodium (Porcine) (Heparin Flush Picc/Ml/Cvc(*)) 1 - 3 ml FLUSH 0600, 1800 EDWIN PRN Reason: Protocol Last Admin: 11/11/17 05:38 Dose: Not Given Sodium Chloride (Ns 0.9% 1000 Ml*) 1,000 mls @ 100 mls/hr IV PER RATE [facility] Last Admin: 11/11/17 02:31 Dose: 100 mls/hr Vancomycin HCl 1,000 mg/ (Sodium Chloride) 250 mls @ 166.667 mls/hr IVPB Q8H EDWIN Last Admin: 11/11/17 02:28 Dose: 166.667 mls/hr Ceftriaxone Sodium 1 gm/ (Dextrose) 50 mls @ 200 mls/hr IVPB Q24H [facility] Last Admin: 11/10/17 22:23 Dose: 200 mls/hr Morphine Sulfate (Morphine Inj (Syringe)*) 4 mg IV Q4H PRN PRN Reason: PAIN Last Admin: 11/11/17 06:28 Dose: 4 mg Nabumetone (Relafen Tab*) 500 mg PO BID [facility] Last Admin: 11/10/17 20:26 Dose: 500 mg Ondansetron HCl (Zofran Inj*) 4 mg IV Q6H PRN PRN Reason: NAUSEA Last Admin: 11/10/17 20:27 Dose: 4 mg Oxycodone HCl (Roxycodone Tab*) 10 mg PO Q4H PRN PRN Reason: PAIN Last Admin: 11/11/17 07:36 Dose: 10 mg Pharmacy Consult (Vancomycin Per Pharmacy*) 1 note FOLLOW UP . PRN PRN Reason: PER PROTOCOL Pharmacy Profile Note (Vancomycin Trough Check) 1 note FOLLOW UP ONCE ONE Stop: 11/11/17 09:31 Vital Signs - 8 hr 11/11/17 11/11/17 11/11/17 02:27 03:38 03:42 Temperature 98.3 F Pulse Rate 98 Respiratory 18 16 16 Rate Blood Pressure 117/67 (mmHg) O2 Sat by Pulse 96 Oximetry 11/11/17 11/11/17 11/11/17 05:30 06:28 07:29 Temperature Pulse Rate Respiratory 20 18 18 Rate Blood Pressure (mmHg) O2 Sat by Pulse Oximetry 11/11/17 11/11/17 07:36 08:05 Temperature 98.5 F Pulse Rate 101 Respiratory 18 18 Rate Blood Pressure 120/79 (mmHg) O2 Sat by Pulse 97 Oximetry Oxygen Devices in Use Now: None Appearance: Alert, NAD Eyes: No Scleral Icterus, PERRLA Ears/Nose/Mouth/Throat: NL Teeth, Lips, Gums, Mucous Membranes Moist Neck: NL Appearance and Movements; NL JVP, Trachea Midline Respiratory: Symmetrical Chest Expansion and Respiratory Effort, Clear to Auscultation Cardiovascular: NL Sounds; No Murmurs; No JVD, RRR, No Edema Abdominal: NL Sounds; No Tenderness; No Distention Extremities: No Edema, No Clubbing, Cyanosis Neurological: Alert and Oriented x 3, NL Sensation, NL Gait, NL Muscle Strength and Tone Nutrition: Taking PO's Result Diagrams: 11/11/17 05:29 11/09/17 20:38 Microbiology and Other Data: Microbiology 11/10/17 05:25 Gram Stain - Final Misc Fluid (See Comment) - Abscess Skin and Soft Tissue MRSA/MSSA (PCR - Final Mrsa Negative S.aureus Negative Diagnostic Imaging: Patient Name: RAYSA LOPEZ Medical Record#: [id number] Ordering Physician: Jack Barrios MD Acct.#: [id number] : 1980 Age: 37 Sex: F Location: SURGICAL STAY UNIT Exam Date: 11/09/172205 ADM Status: ADM IN Order Information: MRI LUMBAR SPINE W/WO Accession Number: [id number] CPT: 56192 INDICATION: Low back pain after L5-S1 lumbar discectomy on October 12, 2017 COMPARISON: Similar MRI dated October 25, 2017 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 FINDINGS: The spinal cord terminates at the L1 level. There are no intrinsic abnormalities of the visualized cord. The patient is status post right L5 hemilaminectomy. At the laminectomy site and within the right erector spinae muscle there is a mostly fluid intensity well- circumscribed collection measuring 2.1 x 2.7 cm in the axial plane (axial image 38 of 50). Evaluation of pre and post contrast T1-weighted imaging shows peripheral enhancement of the fluid collection. This collection abuts but does not appear to penetrate the thecal sac. At approximately the same level, beneath the dermis there is a subcutaneous fluid collection that measures 2.1 x 0.9 cm in the axial plane that also exhibits peripheral enhancement. IMPRESSION: MRI findings are compatible with peripherally enhancing abscesses in the right L5 level erector spinae musculature and the right of midline L5 level subcutaneous fat. The more superficial abscess is much smaller than the previous MRI measuring approximately 0.9 x 2.1 cm in the axial plane, reduced from 2.7 x 3.4 cm on the October 25, 2017 MRI. The deeper intramuscular abscess, abutting but not definitely penetrating the thecal sac, is new since the previous MRI. <Electronically signed by Esequiel Gomez MD in OV> 11/10/17 0802 Dictated By: Esequiel Gomez MD Dictated Date/Time: 11/10/17 0802 Transcribed Date/Time: 11/10/17 6436 Copy to: Assess/Plan/Problems-Billing Assessment: Ms. Lopez is a 37 yo female with PMH significant for recent L5-S1 diskectomy with subsequent CSF leak secondary to a dural tear, S/P repair, but had increase in pain and presented to ER for eval, found to have L5 abscess. - Patient Problems (1) Paraspinal abscess Code(s): M46.20 - OSTEOMYELITIS OF VERTEBRA, SITE UNSPECIFIED SNOMED Code(s): 95578251583171509 Comment: - S/P I&D, POD1 - Afebrile, leukocytosis resolved - Management per Neurosurgery - Continue vanco and cefepime, ID consult pending - Follow cultures - PICC line - Pain control as needed (2) Herniation of intervertebral disc between L5 and S1 Code(s): M51.27 - OTHER INTERVERTEBRAL DISC DISPLACEMENT, LUMBOSACRAL REGION SNOMED Code(s): 88353421 Comment: - s/p L5-S1 decompression/discectimy - Continue managment as per NS (3) Anxiety and depression Code(s): F41.8 - OTHER SPECIFIED ANXIETY DISORDERS SNOMED Code(s): 296746177 Comment: - Supportive care and Xanax PRN (4) Chronic back pain Code(s): M54.9 - DORSALGIA, UNSPECIFIED; G89.29 - OTHER CHRONIC PAIN SNOMED Code(s): 254420916 Comment: - Continue gabapentin and nabumetone, improving (5) DVT prophylaxis Code(s): PDM0158 - SNOMED Code(s): 564960464 Comment: - SCDs while in bed (6) Full code status Code(s): Z78.9 - OTHER SPECIFIED HEALTH STATUS SNOMED Code(s): 143063050 Comment: Status and Disposition: Remain inpatient until clear by NS and ID. Will need longer course IV atbx after discharge to home. Counseling and/or Coordination of Care Minutes: coordinated with staff
[2017-11-11] MEDS: ALPRAZolam TAB* 0.5 MG PO PRN ×2 (09:21→21:59)
[2017-11-11] MEDS ORDERED: Vancomycin Trough Check NOTE FOLLOW UP ONE (09:30)
--- NOTE | 2017-11-11 09:55 | PN ---
Progress Note - Progress Note Date of Service: 11/11/17 SOAP: Subjective: [S/p lumbar wound drain wash out and reclosure for post-op infection. POD #1. She underwent lumbar discectomy recently and returned with CSF leak which was repaired surgically. Low back pain is improved today, lower extremities without pain and numbness. She is restless in bed but states that the pain is improved. Was up out of bed, ambulated. Denies headache and nausea.] Objective: [ Vital Signs: Temp Pulse Resp BP Pulse Ox 98.5 F 101 20 120/79 97 11/11/17 08:05 11/11/17 08:05 11/11/17 09:21 11/11/17 08:05 11/11/17 08:05 General: Awake but slightly drowsy. Sitting up in bed comfortably, eating breakfast. Neuro: Motor and sensory intact. Incision: Intact with jomar. No swelling. Wound drain in place and functioning well, output has slowed. Extremities: Full ROM, no edema. ] Assessment: [This patient is requiring PO and IV pain medications since surgery. We discussed weaning off of the IV pain medication in preparation for discharge home soon. She verbalized understanding. Dr. Wick to consult for treatment of infection. ] Plan: [1. Limit IV pain medication use for severe pain. 2. Encourage up out of bed and ambulation. 3. LSO from [employer] to be worn for support especially when OOB. 4. Ice application to low back PRN.]
[2017-11-11] MEDS: Acetaminophen TAB* 325 MG PO PRN ×2 (11:51→16:15)
[2017-11-11] MEDS: Polyethylene Glycol 3350* 17 GM PACKET PO SCH (14:06)
[2017-11-11] MEDS: Docusate CAP* 100 MG PO PRN ×2 (14:06→21:59)
[2017-11-11] MEDS ORDERED: cefTRIAXone(*) 1 GM in NS 0.9% 50 ML* 50 ML IVPB SCH (22:00)
[2017-11-12] MEDS: Morphine INJ* 4 MG/ML 1 ML SYRINGE (NEW SYRINGE VERSION) IV PRN (00:43)
[2017-11-12] MEDS: oxyCODONE TAB* 5 MG TAB PO PRN ×3 (02:43→11:18)
[2017-11-12] MEDS: Vancomycin(*) 1,000 MG in NS 0.9% 250 ML* 250 ML IVPB SCH ×2 (02:44→10:08)
[2017-11-12] MEDS: NS 0.9% 1000 ML* 1,000 ML IV SCH (02:47)
[2017-11-12] MEDS: Docusate CAP* 100 MG PO PRN (07:30)
[2017-11-12] MEDS: Polyethylene Glycol 3350* 17 GM PACKET PO SCH (07:30)
[2017-11-12] MEDS: Nabumetone TAB* 500 MG PO SCH (07:30)
[2017-11-12] MEDS: Gabapentin CAP(*) 300 MG PO SCH (07:30)
--- NOTE | 2017-11-12 07:49 | PN ---
Progress Note - Progress Note Date of Service: 11/12/17 SOAP: Subjective: []POD # 2 Feels better C/O constipation Back and legs better Objective: []Minimal drain output Culture-Staph Epi Neuro intact Assessment: []Satis progress Plan: []ID C/S today Home when IV antibiotics arranged
[2017-11-12 11:41] VITALS: BP 133/86
--- NOTE | 2017-11-12 14:35 | CONS ---
CONSULTATION REPORT: DATE OF CONSULT: 11/12/17 REQUESTING PHYSICIAN: Dr. Beltran. CONSULTING SERVICE: Infectious Disease. REASON FOR CONSULTATION: Spine infection. IMPRESSION: 1. Status post lumbar diskectomy at L5-S1 complicated by CSF leak, which was repaired on 10/26/17, then had onset of fevers, chills and pain and drainage at the lumbar incision. MRI showed 0.9 x 2.1 cm peripheral enhancing abscess right L5 level of spinal musculature. This was a deeper abscess abutting the thecal sac about 2 x 2 cm. She has had incision and debridement, cultures growing Staph epidermidis, vancomycin MANUEL is 1. 2. History of cervical cancer, status post hysterectomy and oophorectomy. 3. PENICILLIN allergy. Tolerate cephalosporin. RECOMMENDATIONS: Stop ceftriaxone. I wrote discharge paper work for antibiotics for vancomycin 1.5 g IV twice a day for another 40 days to complete 6 weeks with weekly CBC, CMP, CRP and vancomycin trough which will be sent to me. I will see her in a week or 2. She will call with any fevers, rash, or diarrhea. HISTORY OF PRESENT ILLNESS: This is a 37-year-old woman who had a lumbar diskectomy, had developed a CSF leak, which was repaired on 10/26/17 and then developed fevers, chills, pain and drainage of the incision about a week before coming to the hospital. She was taken by Dr. Beltran to the OR on the 11/10/17 for incision and debridement. Gram stain showed Gram positive cocci. The Staph aureus PCR negative. The culture is growing Staph epidermidis. She has been on vancomycin and ceftriaxone here, tolerating it well. The spine pain is much improved. Her mobility is improved. She is eating well. No rash or diarrhea, is little bit constipated. PAST MEDICAL HISTORY: 1. Cervical cancer, status post transabdominal hysterectomy, bilateral salpingo - oophorectomy. 2. Anxiety. 3. Depression. 4. Low back pain with disk herniation, status post L5-S1 diskectomy. 5. Status post appendectomy. 6. Status post cholecystectomy. 7. Status post hernia repair. 8. Status post D and C. 9. Status post tubal ligation. ALLERGIES: ASPIRIN and PENICILLIN. MEDICATIONS: 1. Tylenol. 2. Xanax. 3. Gabapentin. 4. Docusate. 5. Nabumetone. 6. Ceftriaxone. 7. Vancomycin 1 g IV every 8 hours. SOCIAL HISTORY: She lives in [place] with her mother and children. She has no travel. FAMILY HISTORY: No recurrent infections or tuberculosis. REVIEW OF SYSTEMS: A 14-point review of systems was negative except as noted above. PHYSICAL EXAMINATION: Vital Signs: Temperature 37, heart rate 100, respiratory rate 16, blood pressure 120/80, oxygen saturation 99% on room air. In general, she is awake and not in distress. Neurologic: She is oriented x3 and follows all commands. HEENT: There is no conjunctival hemorrhage. Oropharynx without lesions. Neck is supple without nuchal rigidity. Lymph Nodes: There is no inguinal, axillary, or epitrochlear lymphadenopathy. Heart is regular rate and rhythm without murmurs, rubs, or gallops. Lungs are clear to auscultation bilaterally. Abdomen: Soft, nontender, nondistended. There are bowel sounds present. Skin: There is no rash or splinter hemorrhages. Musculoskeletal: There is a lumbar spine incision, which is intact without erythema or drainage. LABORATORY DATA: White blood cell 10 down from 15, hemoglobin 9, platelets 443 , MCV is 91, creatinine is 0.6. CRP was 155 on admission. Vancomycin trough on the 11/11/17 was 14.1. Please see impressions and recommendations outlined above. Thanks for asking me to see Ms. Villarreal in consultation. [id number]/[facility] #: [id number] MTDD
--- NOTE | 2017-11-16 15:15 | ED ---
Jordon Canales Jennifer, scribed for Jack Barrios MD on 11/09/17 at 1953 . Back Pain - HPI Summary HPI Summary: The patient is a 37 year old female who presents with severe back pain since her Laminectomy a few weeks ago. The patient reports that the pain feels like a crushing, pressure pain that radiates from above her incision site down to her knees. She reports that her incision bulges out and standing aggravates the pain. She adds that she has a massive headache, wants to vomit, and has sweats. The patient denies fever, chills, and problems with urination. Lying on her left side alleviates the pain. The patient has had back pain for over two years. She was prescribed pain medication but felt it did not alleviate her pain , so she stopped taking it. - History of Current Complaint Chief Complaint: EDBackInjuryPain Stated Complaint: BACK PAIN FOLLOWING SURGERY Time Seen by Provider: 11/09/17 18:11 Hx Obtained From: Patient Onset/Duration: Lasting Days - two days, Still Present, Worse Since Onset/Duration: Started Days Ago - two days, Still Present, Worse Since Timing: Constant Back Pain Location: Is Diffuse Severity Initially: Severe Severity Currently: Severe Pain Intensity: 10 Pain Scale Used: 0-10 Numeric Character: Aching - Pressure, crushing pain Aggravating Symptom(s): Other - Standing Alleviating Symptom(s): Position - Lying on left side Associated Signs And Symptoms: Positive: Other - Lower back pain radiating to hips and legs, headache, vomiting, sweats. NEGATIVE: fever, chills, problems with urination Related History: Similar Episode Dx As - When she had fluid removed from her back two days ago. - Allergies/Home Medications Allergies/Adverse Reactions: Allergies Allergy/AdvReac Type Severity Reaction Status Date / Time aspirin Allergy Anaphylatic Verified 11/09/17 16:39 Shock Penicillins Allergy Anaphylatic Verified 11/09/17 16:39 Shock Home Medications: Home Medications Gabapentin CAP(*) [Neurontin 300 CAP(*)] 300 mg PO BID 11/09/17 [History Confirmed 11/09/17] Nabumetone TAB* [Relafen TAB*] 500 mg PO BID 11/09/17 [History Confirmed ] PMH/Surg Hx/FS Hx/Imm Hx Endocrine/Hematology History: Denies: Hx Diabetes Cardiovascular History: Denies: Hx Coronary Artery Disease, Hx Hypertension, Hx Pacemaker/ICD Respiratory History: Reports: Other Respiratory Problems/Disorders - smoker Musculoskeletal History: Reports: Other Musculoskeletal History - back pain Sensory History: Denies: Hx Contacts or Glasses, Hx Hearing Aid Opthamlomology History: Denies: Hx Contacts or Glasses Neurological History: Psychiatric History: Reports: Hx Anxiety - prn med, Hx Depression - prn med Denies: Hx Panic Disorder - Surgical History Surgery Procedure, Year, and Place: bilateral ear tubes placed as a child - [place]. D&[place] - 2006 [place]. tubal ligation - 2006 [place]. hysterectomy 2012 [place]. hernia repair 2014 - [place] Hx Anesthesia Reactions: No - Immunization History Immunizations Up to Date: Yes Infectious Disease History: Unable to Obtain/Confirm Infectious Disease History: Denies: Hx of Known/Suspected MRSA, Traveled Outside the [place] in Last 30 Days - Family History Known Family History: Positive: Hypertension, Other Family History: Lung CA, Alzheimer's, sleep apnea - Social History Alcohol Use: Rare Substance Use Type: Reports: Marijuana Substance Use Comment - Amount & Last Used: reports as needed - last used Smoking Status (MU): Light Every Day Tobacco Smoker Type: Cigarettes Amount Used/How Often: reports down to 5-10 per day for approx 7 years Review of Systems Negative: Fever, Chills Negative: Erythema Negative: Sore Throat Negative: Chest Pain Negative: Shortness Of Breath, Cough Positive: Vomiting. Negative: Abdominal Pain, Nausea Negative: dysuria, hematuria Positive: Myalgia - Lower back pain radiating to hips and legs. Negative: Edema Negative: Rash Neurological: Negative - Dizziness Positive: Headache All Other Systems Reviewed And Are Negative: Yes Physical Exam - Summary Physical Exam Summary: Constitutional: Well-developed, Well-nourished, Alert. (-) Distressed. Patient appeared very much able to stand up and roll onto her side. Skin: Warm, Dry HENT: Normocephalic; Atraumatic Eyes: Conjunctiva normal Neck: Musculoskeletal ROM normal neck. (-) JVD, (-) Stridor, (-) Tracheal deviation Cardio: Rhythm regular, rate normal, Heart sounds normal; Intact distal pulses; The pedal pulses are 2+ and symmetric. Radial pulses are 2+ and symmetric. (-) Murmur Pulmonary/Chest wall: Effort normal. (-) Respiratory distress, (-) Wheezes, (-) Rales Abd: Soft, (-) Tenderness, (-) Distension, (-) Guarding, (-) Rebound Musculoskeletal: (-) Edema Lymph: (-) Cervical adenopathy Neuro: Alert, Oriented x3. Strength exam is inconsistent and invariable. Psych: Mood and affect Normal Triage Information Reviewed: Yes Vital Signs On Initial Exam: Initial Vitals Temp Pulse Resp BP Pulse Ox 100.7 F 104 16 117/80 95 11/09/17 16:34 11/09/17 16:34 11/09/17 16:34 11/09/17 16:34 11/09/17 16:34 Vital Signs Reviewed: Yes Diagnostics - Vital Signs Vital Signs Temp Pulse Resp BP Pulse Ox 11/09/17 19:06 98.8 F 104 19 95/50 98 11/09/17 16:34 100.7 F 104 16 117/80 95 - Laboratory Result Diagrams: 11/09/17 20:38 11/09/17 20:38 Lab Statement: Any lab studies that have been ordered have been reviewed, and results considered in the medical decision making process. Back Pain Course/Dx - Course Assessment/Plan: The patient is a 37 year old female who presents with severe back pain since her Laminectomy a few weeks ago. In the ED course the patient was given Oxycodone, Flagyl, Rocephin, and IV fluids. Bloodwork and Urinalysis were obtained. Influenza A and B were negative. I consulted with [facility] in [place], who verified that they fully dispensed a prescription of Oxycodone for the patient eight days ago. I consulted with Dr. Beltran who does not suspect operative infection. He and I both share strong drug-seeking concerns for this patient. The patient is diagnosed with postoperative pain, elevated white blood cell count, elevated inflammatory markers, and drug-seeking behavior. The plan for the patient is admission. Placement on the floor will depend on MRI L-Spine. We will make Dr. Sanchez aware of the patient, but it will not be a sign-out. - Diagnoses Provider Diagnoses: Postoperative pain, Elevated white blood cell count, Elevated inflammatory markers, Drug-seeking behavior - Provider Notifications Discussed Care Of Patient With: Inder [facility] Time Discussed With Above Provider: 20:11 Instructed by Provider To: Other - I spoke to [facility] in [place]. On November 01, 2017, they dispensed 60 pills of Oxycodone 10mg, which would have been a 15 day supply. They double counted pills and verified inventory. They fully dispensed the medication. I also consulted with Dr. Beltran, neurosurgeon. He does not suspect operative infection, most likely UTI. He stated that the patient told him she got jumpy and accidentally spilled the pain medication into the toilet. He and I both share strong drug-seeking concerns for this patient. Discharge - Discharge Plan Condition: Fair Disposition: OTHER Discharge Disposition Comment: Admitted. Placement on floor will depend on MRI L -Spine. Referrals: Azul Greene MD [Primary Care Provider] - The documentation as recorded by the Jordon guillermo Jennifer accurately reflects the service I personally performed and the decisions made by me, Jack Barrios MD.
--- NOTE | 2017-12-17 09:24 | DS ---
DISCHARGE SUMMARY: DATE OF ADMISSION: 11/10/17 DATE OF DISCHARGE: 11/12/17 ATTENDING PHYSICIAN: Dr. Beltran.* (DICTATED BY OTONIEL HOWARD) DISCHARGE DIAGNOSES: 1. Status post lumbar diskectomy L5-S1. 2. Status post cerebrospinal fluid leak repair from previous lumbar surgery. 3. Postop lumbar wound infection and abscess. 4. Anxiety. SPECIAL PROCEDURE: Lumbar wound infection and abscess washout and reclosure. HOSPITAL COURSE: This 37-year-old female recently underwent L5-S1 diskectomy with Dr. Beltran on 10/12/17. She was discharged and was feeling well. She was hospitalized again from 10/23/17 to 10/28/17 and underwent a second surgery for a CSF leak repair. She was again discharged feeling well. Over the next several days, she developed low-grade fevers and severe low back pain. On 11/10, she presented to the [facility] ED complaining of again low-grade fevers and severe low back pain and difficulty with ambulation. MRI of the lumbar spine was obtained showing a large fluid collection and probable paraspinal abscess at the site of the previous lumbar surgeries. She was urgently taken to the operating room where a wound washout and reclosure procedure took place. Postoperatively, Infectious Disease was consulted for optimal management of antibiotics and infection. On the second postoperative day, the low back pain was controlled with oral pain medications with which she could be discharged home. She was ambulating independently and she was eating, drinking and voiding without difficulty. Wound drain output had decreased and drain was discontinued. Home antibiotics were arranged and the patient was discharged home to the care of her family. FOLLOW UP: 1. Dr. Beltran in approximately [address] Jiang for management of the infection and antibiotics. DISCHARGE MEDICATIONS: 1. Oxycodone 5 mg 1 to 2 tabs by mouth every 4 hours as needed for pain. 2. Colace 100 mg 1 capsule by mouth twice daily as needed for constipation. Discharge instructions including wound care and activity level were also discussed with the patient and provided. OTONIEL HOWARD [id number]/[facility] #: [id number] [facility]
--- NOTE | 2017-12-22 20:55 | OP ---
DATE OF OPERATION: 11/10/17 - ROOM #339 DATE OF : 84 SURGEON: William Beltran MD ANESTHESIA: General. PRE-OP DIAGNOSIS: Postoperative lumbar infection. POST-OP DIAGNOSIS: Postoperative lumbar infection. OPERATIVE PROCEDURE: Exploration of lumbar wound with drainage of epidural abscess and paraspinal infection. DESCRIPTION OF PROCEDURE: After satisfactory general anesthesia was obtained, the patient was placed on the operating room table in the prone position with the chest supported on the Barak frame and the back slightly flexed. The lumbar region was then clipped, prepped, and draped in sterile manner for exploration of a previous lumbar wound. The patient had previously undergone a lumbar diskectomy, which is complicated by postoperative CSF leak requiring exploration and repair. She developed wound swelling and fever and was found on imaging to have a probable infection. The previous incision was infiltrated with 1% Xylocaine with epinephrine after which it was opened down to the subcutaneous tissues. Upon opening the subcutaneous tissues, there was noted to be a pocket of purulent material noted. Cultures were obtained of this material. The wound was thoroughly explored and irrigated multiple times with antibiotic irrigation. Preoperative imaging had suggested a more subcutaneous pocket extending superiorly and this area was probed with no further purulence noted. At the conclusion of the exploration, a drain was placed to drain both the paraspinal area as well as the subcutaneous tissues. This drain was then tunneled out to the left side and secured. The wound was then closed with a single layer of horizontal mattress 1-0 Prolene suture. The estimated blood loss was less than 50 cc and the final sponge, padding, and needle counts were correct. The patient was taken to the recovery room, extubated and in stable condition. [id number]/[facility] #: [id number] [facility]herry
== END 2017-11-12 15:00 | disposition home or self-care (01) | DRG 711 ==
LOC: ED 16:34 → OR 11-10 03:13 → SSU 11-10 03:14 → OR 11-10 03:26
PROVIDERS: ADMIT Hospitalist; ATTEND Neurological Surgery
PROC: 009U0ZZ Drainage of Spinal Canal, Open Approach (ICD-10-PCS; 2017-11-10)
PROC: 02HV33Z Insertion of Infusion Device into Superior Vena Cava, Percutaneous Approach (ICD-10-PCS; principal; 2017-11-10 04:47)
DX: T81.4XXA Infection following a procedure, initial encounter (principal); M46.26 Osteomyelitis of vertebra, lumbar region; F41.9 Anxiety disorder, unspecified; F12.90 Cannabis use, unspecified, uncomplicated; M51.27 Other intervertebral disc displacement, lumbosacral region; F32.9 Major depressive disorder, single episode, unspecified; F17.210 Nicotine dependence, cigarettes, uncomplicated; G89.29 Other chronic pain; M54.9 Dorsalgia, unspecified; Z90.49 Acquired absence of other specified parts of digestive tract; Z90.710 Acquired absence of both cervix and uterus; Z98.51 Tubal ligation status; Z88.8 Allergy status to other drugs, medicaments and biological substances; Z88.0 Allergy status to penicillin; Z82.49 Family history of ischemic heart disease and other diseases of the circulatory system; Z80.1 Family history of malignant neoplasm of trachea, bronchus and lung; Z83.6 Family history of other diseases of the respiratory system; Z82.0 Family history of epilepsy and other diseases of the nervous system; Z85.41 Personal history of malignant neoplasm of cervix uteri; Z90.722 Acquired absence of ovaries, bilateral
CPT/HCPCS: 36415; 72158; 80053; 80202; 81003; 81015; 83605; 85025; 85610; 85652; 85730; 86140; 87040; 87070; 87077; 87186; 87205; 87502; 87640; 87641; 94760; 99285; 99406; A9270-GY; A9579; C1751; J0696; J1170; J2001; J2250; J2270; J2405; J2704; J3010; J3370; J3490

== ENCOUNTER 2017-11-14 18:10 | Emergency (ER) | payer OTHER ==
[2017-11-14] MEDS ORDERED: Alteplase (CATHFLO)* 2 MG VIAL IV ONE (20:03)
[2017-11-14] MEDS ORDERED: Alteplase (CATHFLO)* 2 MG/2 ML VIAL IV ONE (21:17)
[2017-11-14] MEDS ORDERED: Vancomycin(*) 1,000 MG in NS 0.9% 250 ML* 250 ML IVPB ONE (21:26)
[2017-11-14] MEDS ORDERED: Vancomycin(*) 1,500 MG in NS 0.9% 250 ML* 250 ML IVPB ONE (21:54)
[2017-11-14] MEDS ORDERED: NS 0.9% 250 ML* 250 ML ONE (22:04)
[2017-11-14] MEDS ORDERED: oxyCODONE/Acetamin 5/325 MG* TAB PO ONE (23:08)
--- NOTE | 2017-11-15 00:58 | ED ---
Pallavi Canales Edward, scribed for Valentine Rodriguez MD on 11/14/17 at 2011 . Complex/Multi-Sys Presentation - HPI Summary HPI Summary: 37 y/o female presents to the ED c/o fluttering at her chest and pain at her RUE up to her chest s/p PICC line flush earlier today. Pt has PICC line to R arm , pt says it would not flush for her today, RN came and tried to flush line but couldn't, pt said she felt a "flutter" in her chest when RN tried to flush line , pt says she has been dizziness with bilat eye blurriness ever since. Pt referred to ED by Dr Yuen. Pt has an infection and had her PICC line in three days ago. Pt has used it every day since it was placed. Last night was the last time it "worked". - History Of Current Complaint Chief Complaint: EDGeneral Time Seen by Provider: 11/14/17 20:02 Hx Obtained From: Patient Onset/Duration: Lasting Hours Location: Pain At: - chest Character: Unable To Describe - flutter Associated Signs And Symptoms: Positive: Dizziness, Chest Pain - flutter, Other - eye bluriness, pain at R upper arm - Allergies/Home Medications Allergies/Adverse Reactions: Allergies Allergy/AdvReac Type Severity Reaction Status Date / Time aspirin Allergy Anaphylatic Verified 11/14/17 19:59 Shock Penicillins Allergy Anaphylatic Verified 11/14/17 19:59 Shock PMH/Surg Hx/FS Hx/Imm Hx Previously Healthy: No Endocrine/Hematology History: Denies: Hx Diabetes Cardiovascular History: Denies: Hx Coronary Artery Disease, Hx Hypertension, Hx Pacemaker/ICD Respiratory History: Reports: Other Respiratory Problems/Disorders - smoker Musculoskeletal History: Reports: Other Musculoskeletal History - back pain Sensory History: Denies: Hx Contacts or Glasses, Hx Hearing Aid Opthamlomology History: Denies: Hx Contacts or Glasses Neurological History: Reports: Hx Headaches Psychiatric History: Reports: Hx Anxiety - prn med, Hx Depression - prn med Denies: Hx Panic Disorder - Surgical History Surgery Procedure, Year, and Place: bilateral ear tubes placed as a child - [place]. D&[place] - 2006 [place]. tubal ligation - 2006. hysterectomy 2012. hernia repair 2015 - [place] Hx Anesthesia Reactions: No - Immunization History Date of Influenza Vaccine: Has not received Infectious Disease History: No Infectious Disease History: Denies: Hx of Known/Suspected MRSA, Traveled Outside the [place] in Last 30 Days - Family History Known Family History: Positive: Hypertension, Other Family History: Lung CA, Alzheimer's, sleep apnea - Social History Alcohol Use: None Substance Use Type: Reports: Marijuana Substance Use Comment - Amount & Last Used: reports as needed - last used Smoking Status (MU): Light Every Day Tobacco Smoker Type: Cigarettes Amount Used/How Often: reports down to 5-10 per day for approx 7 years Review of Systems Constitutional: Negative Positive: Blurred Vision ENT: Negative Positive: Chest Pain - fluttering Respiratory: Negative Gastrointestinal: Negative Genitourinary: Negative Musculoskeletal: Other - Pain at R upper arm radiating to chest Skin: Negative Neurological: Other - dizziness Psychological: Normal All Other Systems Reviewed And Are Negative: Yes Physical Exam - Summary Physical Exam Summary: VITAL SIGNS: Reviewed. GENERAL: Patient is a well-developed and nourished female who is lying comfortable in the stretcher. Patient is not in any acute respiratory distress. HEAD AND FACE: No signs of trauma. No ecchymosis, hematomas or skull depressions. No sinus tenderness. EYES: PERRLA, EOMI x 2, No injected conjunctiva, no nystagmus. EARS: Hearing grossly intact. Ear canals and tympanic membranes are within normal limits. MOUTH: Oropharynx within normal limits. NECK: Supple, trachea is midline, no adenopathy, no JVD, no carotid bruit, no c- spine tenderness, neck with full ROM. CHEST: Symmetric, no tenderness at palpation LUNGS: Clear to auscultation bilaterally. No wheezing or crackles. CVS: Regular rate and rhythm, S1 and S2 present, no murmurs or gallops appreciated. ABDOMEN: Soft, non-tender. No signs of distention. No rebound no guarding, and no masses palpated. Bowel sounds are normal. EXTREMITIES: FROM in all major joints, no edema, no cyanosis or clubbing. Pt has a PICC line at her R upper arm. NEURO: Alert and oriented x 3. No acute neurological deficits. Speech is normal and follows commands. SKIN: Dry and warm Triage Information Reviewed: Yes Vital Signs On Initial Exam: Initial Vitals Temp Pulse Resp BP Pulse Ox 98.2 F 88 16 162/92 99 11/14/17 18:14 11/14/17 18:14 11/14/17 18:14 11/14/17 18:14 11/14/17 18:14 Vital Signs Reviewed: Yes Diagnostics - Vital Signs Vital Signs Temp Pulse Resp BP Pulse Ox 11/14/17 19:58 97 20 96 11/14/17 19:55 130/87 11/14/17 19:18 98.2 F 95 16 151/92 97 11/14/17 18:14 98.2 F 88 16 162/92 99 - Laboratory Lab Statement: Any lab studies that have been ordered have been reviewed, and results considered in the medical decision making process. - EKG 1 EKG Interpretation: SR @ 90. Normal axis, normal interval, no ischemic changes. Complex Multi-Symp Course/Dx Assessment/Plan: Pt had a paraspinal abscess drained a few days ago, given vancomycin to be taken through the PICC line BID. Pt states PICC line has no function since last night. PICC line replaced by ED nurse. Pt given 1 dose of vancomycin in the ED. PT will be d/c home. - Diagnoses Provider Diagnoses: PICC line malfunction Discharge - Discharge Plan Condition: Stable Disposition: HOME Patient Education Materials: How to Flush Your PICC or Midline Catheter (ED) Referrals: Azul Greene MD [Primary Care Provider] - 4 Days (PLEASE F/U IN 3-5 DAYS) Additional Instructions: RETURN TO THE ED FOR RETURN OR WORSENING OF SYMPTOMS The documentation as recorded by the Pallavi guillermo Edward accurately reflects the service I personally performed and the decisions made by Jennifer quezada Abdul, MD.
[2017-11-15 01:10] VITALS: BP 120/84
== END 2017-11-15 01:08 | disposition home or self-care (01) ==
LOC: ED 18:10
DX: T82.594A Other mechanical complication of infusion catheter, initial encounter (principal); R07.9 Chest pain, unspecified; F17.210 Nicotine dependence, cigarettes, uncomplicated; Z88.6 Allergy status to analgesic agent; Z88.0 Allergy status to penicillin
CPT/HCPCS: 93005; 96365; 96366; 96375; 99282; A9270-GY; C1751; J2997; J3370

== ENCOUNTER 2017-11-17 18:55 | Inpatient (IN) | payer OTHER ==
[2017-11-17] MEDS ORDERED: NS 0.9% 1000 ML* 1,000 ML IV ONE (20:06)
[2017-11-17] MEDS ORDERED: HYDROmorphone INJ* 2 MG/ML CARPUJECT SYRINGE IV SLOW PU ONE (20:06)
[2017-11-17] MEDS ORDERED: Metoclopramide IV* 5 MG/ML 2 ML VIAL IV ONE (20:06)
[2017-11-17] MEDS ORDERED: Iohexol 300* (CONTRAST) 10 ML SDV IV ONE (20:14)
[2017-11-17 20:35] LABS: ABS Basophils 0.1 10^3/ul (0-0.2); ABS Eosinophils 0.1 10^3/ul (0-0.6); ABS Lymphocytes 2.4 10^3/ul (1.0-4.8); ABS Monocytes 1.4 10^3/ul (0-0.8); ABS Neutrophils 9.3 10^3/ul (1.5-7.7); ABS Nucleated RBC 0 10^3/ul; Eosinophil % 0.7 % (0-6); Hematocrit 34 % (35-47); Mean Corpuscular HGB Conc 33 g/dl (31-36); Mean Corpuscular Hemoglobin 30 pg (27-31); Mean Corpuscular Volume 90 fL (80-97); Mean Platelet Volume 7 um3 (7.4-10.4); Nucleated Red Blood Cells % 0; Platelet Count 578 10^3/ul (150-450); Red Blood Count 3.72 10^6/ul (4.0-5.4); Red Cell Distribution Width 13 % (10.5-15); White Blood Count 13.4 10^3/ul (3.5-10.8)
[2017-11-17 20:41] LABS: INR 1.17 (0.77-1.02)
[2017-11-17 20:56] LABS: EGFR Non-African American 118.3 (>60)
[2017-11-17] MEDS ORDERED: HYDROmorphone INJ* 1 MG/ML CARPUJECT SYRINGE IV SLOW PU ONE (22:09)
[2017-11-17] MEDS ORDERED: Vancomycin(*) 1,500 MG in NS 0.9% 250 ML* 250 ML IVPB ONE (23:02)
[2017-11-17] MEDS ORDERED: Dexamethasone IV* 4 MG/ML 1 ML (4 MG) IV SLOW PU ONE (23:03)
[2017-11-17] MEDS ORDERED: NS 0.9% 250 ML* 250 ML ONE (23:06)
--- NOTE | 2017-11-18 00:08 | ED ---
Ramiro Canales Gabriel, scribed for Valentine Rodriguez MD on 11/17/17 at 2027 . Back Pain - HPI Summary HPI Summary: This patient is a 37 year old F BIBA to [facility] accompanied by her family with a chief complaint of lower back pain since 1700 tonight. Pt states she was sitting down urinating when she felt a pop in her lower back. Immediately after the pop pain set in and patient was unable to walk due to the pain. She denies any pushing while using the bathroom. The patient rates the pain 10/10 in severity and describes it as going down both her legs. Pt had surgery last week for a para spinal abscess by Dr. Beltran. - History of Current Complaint Chief Complaint: EDBackInjuryPain Stated Complaint: BACK PAIN Time Seen by Provider: 11/17/17 19:54 Hx Obtained From: Patient, Family/Barrel Filler Head Onset/Duration: Lasting Hours, Still Present Onset/Duration: Still Present Timing: Constant Back Pain Location: Radiates To - LE bilat Severity Initially: Severe Severity Currently: Severe Pain Intensity: 10 Pain Scale Used: 0-10 Numeric Aggravating Symptom(s): Movement, Lifting, Bending Associated Signs And Symptoms: Positive: Other - left leg numbness from the groin down. - Allergies/Home Medications Allergies/Adverse Reactions: Allergies Allergy/AdvReac Type Severity Reaction Status Date / Time aspirin Allergy Anaphylatic Verified 11/14/17 19:59 Shock Penicillins Allergy Anaphylatic Verified 11/14/17 19:59 Shock PMH/Surg Hx/FS Hx/Imm Hx Endocrine/Hematology History: Denies: Hx Diabetes Cardiovascular History: Denies: Hx Coronary Artery Disease, Hx Hypertension, Hx Pacemaker/ICD Respiratory History: Reports: Other Respiratory Problems/Disorders - smoker Musculoskeletal History: Reports: Other Musculoskeletal History - back pain Sensory History: Denies: Hx Contacts or Glasses, Hx Hearing Aid Opthamlomology History: Denies: Hx Contacts or Glasses Neurological History: Reports: Hx Headaches Psychiatric History: Reports: Hx Anxiety - prn med, Hx Depression - prn med Denies: Hx Panic Disorder - Surgical History Surgery Procedure, Year, and Place: bilateral ear tubes placed as a child - [place]. D&[place] - 2006 [place]. tubal ligation - 2006 [place]. hysterectomy 2012. hernia repair 2014 - [place] Hx Anesthesia Reactions: No - Immunization History Date of Influenza Vaccine: Has not received Infectious Disease History: No Infectious Disease History: Denies: Hx of Known/Suspected MRSA, Traveled Outside the [place] in Last 30 Days - Family History Known Family History: Positive: Hypertension, Other Family History: Lung CA, Alzheimer's, sleep apnea - Social History Alcohol Use: None Substance Use Type: Reports: Marijuana Substance Use Comment - Amount & Last Used: reports as needed - last used Smoking Status (MU): Light Every Day Tobacco Smoker Type: Cigarettes Amount Used/How Often: reports down to 5-10 per day for approx 7 years Review of Systems Positive: Fever Positive: Other - back pain Neurological: Other - left leg numbness from the groin down. All Other Systems Reviewed And Are Negative: Yes Physical Exam - Summary Physical Exam Summary: VITAL SIGNS: Reviewed. GENERAL: Patient is a well-developed and nourished female. Patient is lying on her left side due to pain. HEAD AND FACE: No signs of trauma. No ecchymosis, hematomas or skull depressions. No sinus tenderness. EYES: PERRLA, EOMI x 2, No injected conjunctiva, no nystagmus. EARS: Hearing grossly intact. Ear canals and tympanic membranes are within normal limits. MOUTH: Oropharynx within normal limits. NECK: Supple, trachea is midline, no adenopathy, no JVD, no carotid bruit, no c- spine tenderness, neck with full ROM. CHEST: Symmetric, no tenderness at palpation LUNGS: Clear to auscultation bilaterally. No wheezing or crackles. CVS: Regular rate and rhythm, S1 and S2 present, no murmurs or gallops appreciated. ABDOMEN: Soft, non-tender. No signs of distention. No rebound no guarding, and no masses palpated. Bowel sounds are normal. EXTREMITIES: FROM in all major joints, no edema, no cyanosis or clubbing. NEURO: Alert and oriented x 3. No acute neurological deficits. Speech is normal and follows commands. Pt has sensation in LLE SKIN: Dry and warm Triage Information Reviewed: Yes Vital Signs On Initial Exam: Initial Vitals Temp Pulse Resp BP Pulse Ox 99.2 F 102 18 128/93 100 11/17/17 18:56 11/17/17 18:56 11/17/17 18:56 11/17/17 18:56 11/17/17 18:56 Vital Signs Reviewed: Yes Diagnostics - Vital Signs Vital Signs Temp Pulse Resp BP Pulse Ox 11/17/17 18:56 99.2 F 102 18 128/93 100 - Laboratory Result Diagrams: 11/17/17 20:20 11/17/17 21:20 Lab Statement: Any lab studies that have been ordered have been reviewed, and results considered in the medical decision making process. - CT CT l Spine CT Interpretation Completed By: Radiologist - there is reactive sclerosis in the endplates of L5 and S1 as seen previously with lytic changes in the endplates which are new from prior CT which could reflect postsurgical changes of discectomy. Discitis cannot be excluded. There is a paraspinal soft tissue thickening about L5 and S1 at the level of the lumbosacral junction. A right L5 laminectomy defect is again noted. There is an irregular small collection in the superficial soft tissues posteriorly at the L4 and L5 levels measuring 1.3 X 0.5 cm axially and approximately 3-4 cm in craniocaudal dimension. This demonstrates peripheral enhancement and could be infected collection. A collection in the right parasagittal superficial soft tissue at L2 and L3 levels contains a focus of gas and measures 2.4 X .8 cm axially and approximately 3.5 cm in craniocaudal dimensions. This also demonstrates peripheral enhancement and could be an infected collection. The remainder of the spine is unremarkable. ED physician has reviewed this radiology report. Back Pain Course/Dx - Course Assessment/Plan: This patient is a 37 year old F BIBA to [facility] accompanied by her family with a chief complaint of lower back pain since 1700 tonight. Pt states she was sitting down urinating when she felt a pop in her lower back. Immediately after the pop pain set in and patient was unable to walk due to the pain. She denies any pushing while using the bathroom. The patient rates the pain 10/10 in severity and describes it as going down both her legs. Pt had surgery last week for a para spinal abscess by Dr. Beltran. CT L spine reveals , per radiologist, there is reactive sclerosis in the endplates of L5 and S1 as seen previously with lytic changes in the endplates which are new from prior CT which could reflect postsurgical changes of discectomy. Discitis cannot be excluded. There is a paraspinal soft tissue thickening about L5 and S1 at the level of the lumbosacral junction. A right L5 laminectomy defect is again noted. There is an irregular small collection in the superficial soft tissues posteriorly at the L4 and L5 levels measuring 1.3 X 0.5 cm axially and approximately 3-4 cm in craniocaudal dimension. This demonstrates peripheral enhancement and could be infected collection. A collection in the right parasagittal superficial soft tissue at L2 and L3 levels contains a focus of gas and measures 2.4 X .8 cm axially and approximately 3.5 cm in craniocaudal dimensions. This also demonstrates peripheral enhancement and could be an infected collection. The remainder of the spine is unremarkable. Test results with no significant abnormalities. In the ED course the patient was given dilaudid, decadron, reglan, and IV fluids. The pt witll be admitted until vascular tech arrives at this point she will recieve an MRI. We discussed patient care with Dr. Molina and I informed him the pt had a CT L spine and there is no reading. He states the pt needs an MRI of l and T spine with and without contrast. Dr. Molina came and saw the patient at 2353 and he recommends admitting the patient. 235 I discussed patient care with Dr. Alamo and he has accepted the patient for admission. Dx discitis. Patient will be admitted. The patient is agreeable with this plan. - Diagnoses Provider Diagnoses: Discitis - Provider Notifications Discussed Care Of Patient With: Lila Aponte Time Discussed With Above Provider: 21:00 Instructed by Provider To: Other - We discussed patient care with Dr. Molina and I informed him the pt had a CT L spine and there is no reading. He satates the pt needs an MRI of l and T spine with and without contrast. Discharge - Discharge Plan Condition: Fair Disposition: ADMITTED TO [facility] Referrals: Azul Greene MD [Primary Care Provider] - The documentation as recorded by the Ramiro guillermo Gabriel accurately reflects the service I personally performed and the decisions made by me, Valentine Rodriguez MD.
[2017-11-18] MEDS ORDERED: Albuterol 2.5 MG/3 ML NEB.SOL* (0.083%) INH PRN (01:04)
[2017-11-18] MEDS ORDERED: Nicotine Inhaler* 10 MG AMP INH PRN (01:04)
[2017-11-18] MEDS ORDERED: Acetaminophen TAB* 325 MG PO PRN (01:04)
[2017-11-18] MEDS ORDERED: Ondansetron INJ* 2 MG/ML VIAL IV PRN (01:04)
[2017-11-18] MEDS ORDERED: Mouth Piece, Nicotine* 1 EACH CARTRIDGE INH ONE (01:04)
[2017-11-18] MEDS ORDERED: CMCS: Melatonin (NF) 3 MG TAB PO PRN (01:04)
[2017-11-18] MEDS ORDERED: Gadoteridol* (CONTRAST) 279.3 MG/ML 10 ML IV ONE (01:50)
[2017-11-18] MEDS: oxyCODONE TAB* 5 MG TAB PO PRN ×5 (02:40→21:10)
[2017-11-18] MEDS: HYDROmorphone INJ* 1 MG/ML CARPUJECT SYRINGE IV PRN ×5 (02:45→22:44)
[2017-11-18 06:19] LABS: Hematocrit 30 % (35-47); Hemoglobin 10.1 g/dl (12.0-16.0); Mean Corpuscular HGB Conc 33 g/dl (31-36); Mean Corpuscular Hemoglobin 30 pg (27-31); Mean Corpuscular Volume 90 fL (80-97); Mean Platelet Volume 7 um3 (7.4-10.4); Platelet Count 564 10^3/ul (150-450); Red Blood Count 3.36 10^6/ul (4.0-5.4); Red Cell Distribution Width 13 % (10.5-15); White Blood Count 11.4 10^3/ul (3.5-10.8)
--- NOTE | 2017-11-18 06:36 | CONS ---
CONSULTATION NOTE: DATE OF CONSULT: 11/18/17 - ROOM #339 HISTORY OF PRESENT ILLNESS: The patient is a very pleasant 37-year-old female, who has a history of right L5-S1 lumbar microdiskectomy by Dr. Beltran a few weeks ago. She underwent a revision of her wound and repair of a pseudomeningocele, did very well after that, and approximately 1 week ago, she underwent a revision of wound for irrigation and debridement for evacuation of epidural abscess. The patient was discharged home last Wednesday with IV vancomycin and was doing very well until this afternoon when she went to the bathroom, felt a pop in her back and immediately had significant back pain and difficulty ambulating. The patient reports that she has pain in her back with radiation to both lower extremities. She reports that she has numbness in the left lower extremity. She denies urinary or GI incontinence and reports her perianal sensation is intact. The patient denies any drainage from her wound or any fevers. PAST MEDICAL HISTORY: Anxiety, depression. SURGICAL HISTORY: Bilateral myringotomy, D and C, tubal ligation, hysterectomy , hernia repair, right L5-S1 lumbar microdiskectomy, repair of pseudomeningocele , and lumbar epidural abscess evacuation. MEDICATIONS: The patient is on IV vancomycin. ALLERGIES: ASPIRIN and PENICILLIN. SOCIAL HISTORY: Tobacco: Positive. Alcohol: Negative. Recreationally used marijuana. PHYSICAL EXAMINATION: The patient is not in acute distress. She is able to ambulate in the emergency room. Her wound is clean and dry, healing very well. She is awake, alert, oriented x3. Her pupils are equal and reactive. Cranial nerves II through XII grossly intact. Motor 4/5 to 5/5 in all extremities. Sensory grossly intact to light touch, except decreased sensation in the left lower extremity, below the inguinal area. Deep tendon reflexes +1 bilaterally. No clonus. No Babinski. Wheeler negative. Straight leg raise negative in the sitting position. DIAGNOSTIC STUDIES/LAB DATA: The patient had a CT scan of her lumbar spine revealing postoperative changes. CT scan reveals also erosion of the end- plates of L5 and S1 with disk height loss. ASSESSMENT: Patient is a very pleasant 37-year-old female, who is status post L5- S1 diskectomy as well as pseudomeningocele repair and epidural abscess evacuation, with complaints of back pain. PLAN: The patient, at this point, has some improvement of her back pain. Because of her presentation and CT scan findings, we would recommend to obtain an MRI of her lumbar spine with and without contrast. Also, we recommend admission for observation and keeping the patient n.p.o. in case surgical intervention is considered. Thank you for allowing us to participate in the care of this patient. Please do not hesitate to contact our office in case you have any further questions or concerns regarding the care of this patient. [id number]/CPS #: [id number] SUMANTH
--- NOTE | 2017-11-18 08:19 | HP ---
H&P (Free Text) History and Physical: Note: This is an inteval H&P. Please refer to the H&P dated 11/10/2017 copied below PCP: Mejia Greene MD Date/Time: 11/18/2017 0045 CC: worsening LBP HPI: Mrs Vuong is an unfortunate 37YO female HX L5/S1 diskectomy 10/12/2017 complicated by an epidural leak w/ headache for which she had a repair 2017 complicated by subcutaneous and epidural abscess formation for which she underwent surgical drainage growing S epidermidis. She has been on outpatient vancomycin 1500mg via PICC BID followed by Sherry Jiang. Today she went to the bathroom to urinate, felt a "pop" in her back and experienced 10/10 excruciating pain. She walked down some stairs to smoke a cigarette and within 1-2 minutes could no longer bear the pain or move because of it and had to be carried back indoors where EMS was called. She reports stable weakness in the RLE, but new weakness in the LLE. She has stable long- standing numbness of the RLE, but new stocking distribution numbness in the LLE. She reports nausea without emesis which she attributes to the vancomycin. No diarrhea, F/C, or sweats. She has had no incontinence of bowel/bladder. Dr Muniz, neurosurgery evaluated her in the ED and will follow. PMedHx, PSurgHx, SocHx, & FamHx: reviewed and unchanged compared to H&P dated . Ambulatory Orders Nursing to reconcile. ALPRAZolam TAB* [Xanax TAB*] 0.5 mg PO BID PRN 10/05/17 Gabapentin CAP(*) [Neurontin 300 CAP(*)] 300 mg PO BID 11/09/17 Nabumetone TAB* [Relafen TAB*] 500 mg PO BID 11/09/17 Docusate CAP* [Colace Cap*] 100 mg PO BID PRN #60 cap MDD 2 11/12/17 oxyCODONE TAB* [Roxycodone TAB 5 mg*] 1 - 2 tab PO Q4H PRN #60 tab MDD 6 Allergies aspirin Allergy (Verified 11/18/17 01:52) Anaphylatic Shock Penicillins Allergy (Verified 11/18/17 01:52) Anaphylatic Shock ROS: as above, otherwise reviewed and all were negative vitals: Vital Signs Temp 36.6 C 11/18/17 02:47 Pulse 80 11/18/17 02:47 Resp 18 11/18/17 07:00 BP 108/65 11/18/17 02:47 Pulse Ox 98 11/18/17 02:47 Intake & Output 11/17/17 11/17/17 11/18/17 11:59 23:59 11:59 Intake Total 1000 250 Output Total 200 Balance 1000 50 Weight 61.235 kg 61.235 kg Intake: IV Fluids 1000 100 Oral 150 Output: Urine 200 Constitutional: NAD, normally developed, well-nourished white female HEENM: atraumatic; sclera/conjunctiva: anicteric/clear; hearing: clinically intact; oropharynx: clear, mucosa moist Neck: soft tissue: non-tender; thyroid: normal Pulmonary: clear to auscultation bilaterally, good aeration, no accessory muscle use CV: RR/RR, normal S1S2, no carotid bruit, no jugular venous distention, 2+ B DP/ PT, no edema Abdominal: soft, non-distended, non-tender, no rebound/guarding/rigidity, normoactive bowel sounds, no hepatosplenomegaly or masses, no costovertebral angle tenderness Musculoskeletal: general: grossly intact extremities w/o tenderness to palpation Integumental: L-spine incision w/ sutures intact, more tender than expected w/o erythema/warmth/drainage/induration Neurologic: Deferred to neurosurgery. Psychiatric orientation: AA&O to PPS affect: anxious mood: cooperative eye contact: fair content: reliable responses: timely insight: fair to good Testing: Lab Results 11/17/17 11/17/17 11/17/17 Range/Units 20:20 20:20 20:20 WBC 13.4 H (3.5-10.8) 10^3/ul RBC 3.72 L (4.0-5.4) 10^6/ul Hgb 11.0 L (12.0-16.0) g/dl Hct 34 L (35-47) % MCV 90 (80-97) fL MCH 30 (27-31) pg MCHC 33 (31-36) g/dl RDW 13 (10.5-15) % Plt Count 578 H D (150-450) 10^3/ul MPV 7 L (7.4-10.4) um3 Neut % (Auto) 69.7 (38-83) % Lymph % (Auto) 18.0 L (25-47) % Cloud % (Auto) 10.5 H (0-7) % Eos % (Auto) 0.7 (0-6) % Baso % (Auto) 1.1 (0-2) % Absolute Neuts (auto) 9.3 H (1.5-7.7) 10^3/ul Absolute Lymphs (auto) 2.4 (1.0-4.8) 10^3/ul Absolute Monos (auto) 1.4 H (0-0.8) 10^3/ul Absolute Eos (auto) 0.1 (0-0.6) 10^3/ul Absolute Basos (auto) 0.1 (0-0.2) 10^3/ul Absolute Nucleated RBC 0 10^3/ul Nucleated RBC % 0 INR (Anticoag Therapy) 1.17 H (0.77-1.02) APTT 30.3 (26.0-36.3) seconds Sodium 139 (133-145) mmol/L Potassium TNP Chloride 105 (101-111) mmol/L Carbon Dioxide 26 (22-32) mmol/L Anion Gap 8 (2-11) mmol/L BUN 10 (6-24) mg/dL Creatinine 0.58 (0.51-0.95) mg/dL Est GFR ( Amer) 152.1 (>60) Est GFR (Non-Af Amer) 118.3 (>60) BUN/Creatinine Ratio 17.2 (8-20) Glucose 97 (70-100) mg/dL Calcium 9.6 (8.6-10.3) mg/dL Magnesium TNP Total Bilirubin 0.20 (0.2-1.0) mg/dL AST TNP ALT 26 (7-52) U/L Alkaline Phosphatase 111 H (34-104) U/L C-Reactive Protein 34.81 H (< 5.00) mg/L Total Protein 7.8 (6.4-8.9) g/dL Albumin 3.7 (3.2-5.2) g/dL Globulin 4.1 H (2-4) g/dL Albumin/Globulin Ratio 0.9 L (1-3) Beta HCG, Quant 2.04 mIU/mL Blood Type Antibody Screen 11/17/17 11/17/17 11/18/17 Range/Units 20:20 21:20 05:24 WBC 11.4 H (3.5-10.8) 10^3/ul RBC 3.36 L (4.0-5.4) 10^6/ul Hgb 10.1 L (12.0-16.0) g/dl Hct 30 L (35-47) % MCV 90 (80-97) fL MCH 30 (27-31) pg MCHC 33 (31-36) g/dl RDW 13 (10.5-15) % Plt Count 564 H (150-450) 10^3/ul MPV 7 L (7.4-10.4) um3 Neut % (Auto) (38-83) % Lymph % (Auto) (25-47) % Cloud % (Auto) (0-7) % Eos % (Auto) (0-6) % Baso % (Auto) (0-2) % Absolute Neuts (auto) (1.5-7.7) 10^3/ul Absolute Lymphs (auto) (1.0-4.8) 10^3/ul Absolute Monos (auto) (0-0.8) 10^3/ul Absolute Eos (auto) (0-0.6) 10^3/ul Absolute Basos (auto) (0-0.2) 10^3/ul Absolute Nucleated RBC 10^3/ul Nucleated RBC % INR (Anticoag Therapy) (0.77-1.02) APTT (26.0-36.3) seconds Sodium (133-145) mmol/L Potassium 3.9 Chloride (101-111) mmol/L Carbon Dioxide (22-32) mmol/L Anion Gap (2-11) mmol/L BUN (6-24) mg/dL Creatinine (0.51-0.95) mg/dL Est GFR ( Amer) (>60) Est GFR (Non-Af Amer) (>60) BUN/Creatinine Ratio (8-20) Glucose (70-100) mg/dL Calcium (8.6-10.3) mg/dL Magnesium 2.0 Total Bilirubin (0.2-1.0) mg/dL AST 34 ALT (7-52) U/L Alkaline Phosphatase (34-104) U/L C-Reactive Protein (< 5.00) mg/L Total Protein (6.4-8.9) g/dL Albumin (3.2-5.2) g/dL Globulin (2-4) g/dL Albumin/Globulin Ratio (1-3) Beta HCG, Quant mIU/mL Blood Type A Negative Antibody Screen Negative CT L-spine, personally reviewed: FINDINGS: There is reactive sclerosis in the endplates of L5 and S1 as seen previously with lytic changes in the endplates which are new from prior CT which could reflect postsurgical changes of discectomy. Discitis cannot be excluded. There is an irregular small collection in the superficial soft tissues posteriorly at the L4 and L5 levels measuring 1.3 x 0.5cm axially and approximately 3-4cm in the craniocaudal dimension. This demonstrates peripheral enhancement and could be an infected collection. A collection in the right parasagittal superficial soft tissues at the L2 and L3 levels contains a focus of gas and measures 2.4 x 0.8cm in craniocaudal dimension. This also demonstrates peripheral enhancement and could be an infected collection. The remainder of the spine is unremarkable. MRI T-spine W/WO: IMPRESSION: Normal enhanced MRI of the thoracic spine. MRI L-spine W/WO: IMPRESSION: New discitis with persistent L5 and S1 osteomyelitis. Complete drainage of deep parasacral abscess since the prior exam with enlargement of the subcutaneous loculation up to 5.6 x 1.2 x 0.6cm. Impression: 37F HX L5/S1 laminectomy complicated by dural leak s/p repair complicated by epidural & subcutaneous abscess s/p drainage with new finding of discitis and enlarging subcutaneous abscess with 2nd intractable LBP DIAGNOSIS & PLAN Primary L5/S1 laminectomy complicated by: dural leak s/p repair complicated by: epidural & subcutaneous abscess s/p drainage with new finding of: discitis & enlarging subcutaneous abscess w/ intractable LBP : pain control : Dr Muniz, neurosurgery consulted in ED : continue IV vancomycin per ID : ID consult in AM : supportive care Secondary anxiety/depression : continue alprazolam chronic back pain : continue gabapentin & nabumetone. Admission Rational: inpatient for neurosurgical management of discitis & ongoing ABX for spinal osteomyelitis; inappropriate for outpatient setting DVTp: SCDs Code Status: full History & Physical Patient: RAYSA LOPEZ /Age: 09 1980 37 Medical Record#: [id number] Admission Date: 11/10/17 Provider: Katina Barry DO CC: Dr. Greene * HISTORY AND PHYSICAL: DATE OF ADMISSION: 11/10/17. PRIMARY CARE PROVIDER: Dr. Greene. NEUROSURGEON: Dr. Beltran. CHIEF COMPLAINT: Back pain. HISTORY OF PRESENT ILLNESS: Ms. Lopez is a 37-year-old female who on 10/12/17 had an L5-S1 diskectomy. Patient unfortunately was readmitted from 10/23/17 through 10/28/17, where she was treated for a dural tear with CSF leak headache. Patient went back to the OR on 10/26/17. The patient was discharged home, feeling okay. Over the course of the last 2 weeks, the patient more recently has developed low grade fevers and back pain. Patient ultimately presented to the emergency room today with complaints of severe back pain and difficulty ambulating. She states that she fell down some stairs because of feeling weak as well. Of note, the patient was seen in the emergency room on with complaints of back pain. At that time, the patient was found to have an elevated white blood cell count of 18,000 and CRP of 35.38. The patient was discharged home at that point. Today, the patient was found to have CRP of 155.58 and white count of 15,000. Patient still complaints of back pain. She states lying on the MRI table did exacerbate her pain some. She notes that the incision appears to be bulging but she is not noticed any leakage from the incision. PAST MEDICAL HISTORY: 1. Anxiety/depression. 2. Chronic back pain, status post L5-S1 diskectomy with subsequent dural tear with CSF leak requiring operative repair. PAST SURGICAL HISTORY: 1. Above mentioned L5-S1 diskectomy with subsequent dural tear repair. 2. Appendectomy. 3. Cholecystectomy. 4. Hysterectomy. 5. Hernia repair. 6. D and C. 7. Tubal ligation. MEDICATIONS: 1. Relafen 500 mg p.o. b.i.d. 2. Gabapentin 300 mg p.o. b.i.d. 3. Estradiol 1 mg p.o. daily. 4. Xanax 0.5 mg p.o. b.i.d. p.r.n. anxiety. ALLERGIES: ASPIRIN and PENICILLIN. FAMILY HISTORY: Both parents are alive and have a history of high blood pressure. SOCIAL HISTORY: The patient has been a smoker. She does not drink alcohol. She smokes approximately half pack for 10 to 15 years. She indicates that her mother is her healthcare proxy. REVIEW OF SYSTEMS: Complete 11 system review of systems was obtained. Pertinent positives and negatives are as per HPI and otherwise negative. PHYSICAL EXAMINATION GENERAL: Patient is a well-developed, young female, seen lying in stretcher, in no acute distress. VITAL SIGNS: Blood pressure 110/93, pulse 89, respirations 20, temp 98.3, T- max 100.7, O2 sat 97% on room air. HEENT: Pupils are equal and round. Extraocular muscles intact. Oropharynx is clear. Oral mucosa is moist. There is no submandibular, cervical or supraclavicular adenopathy. Thyroid is not enlarged. No thyroid nodules are noted. PULMONARY: Lungs are clear to auscultation bilaterally. CARDIAC: Normal S1, S2. Regular rate and rhythm. I do not appreciate any murmurs. There is no lower extremity edema. ABDOMEN: Bowel sounds present. Abdomen is soft, nontender, nondistended. MUSCULOSKELETAL: There is no cyanosis or clubbing of the digits. There is full active range of motion of all 4 extremities. NEUROLOGIC: Cranial nerves II through XII are grossly intact. Sensation is intact to light touch throughout. Strength is 5/5 and symmetric in both upper and lower extremities bilaterally. PSYCH: Patient is alert. She is oriented x3. Affect appears appropriate. SKIN: Warm and dry. There are no rashes. The lumbar incision appears to be intact. There is no drainage. DIAGNOSTIC STUDIES/LAB DATA: WBC 15.0, hemoglobin 10.6, hematocrit 32, platelets 565. INR 1.16. Sodium 139, potassium 3.5, chloride 103, CO2 28, BUN 12, creatinine 0.63, glucose 100, lactic acid 0.6, calcium 9.7, bilirubin 0.5, AST 15, ALT 32, alk phos 102, CRP 155.58, albumin 4.0. Urinalysis was negative for signs of infection. Influenza A and B negative. MRI lumbar spine, there are two interconnected paraspinal rim enhancing fluid collections suspected to represent abscesses with a 6.1 x 2.1 cm collection contiguous with the laminectomy site and a 6.4 x 0.6 cm collection in the subcutaneous tissue. No epidural abscess was noted. There is possible osteomyelitis of L5 and S1 without definitive evidence of diskitis. There is a small to moderate size residual right central L5-S1 disk herniation, which moderately narrows the right lateral recess and compresses with descending right S1 nerve root. ASSESSMENT AND PLAN: Ms. Lopez is a 37-year-old female who status post L5-S1 diskectomy 10/12/17 with subsequent CSF leak secondary to a dural tear, status post operative repair on 10/26/17, who now presents to the emergency room with complaints of severe back pain and was found to have probable paraspinal abscess. 1. Paraspinal abscess. For now, the patient will be placed on broad spectrum antibiotics including vancomycin and cefepime. Blood cultures have been sent. I have contacted Dr. Beltran, who coming into the hospital to see the patient. She will need likely be taken for urgent incision and drainage and debridement. ID consultation will be requested for appropriate antibiotic choice and duration of therapy. 2. Anxiety/depression. We will continue p.r.n. Xanax. 3. Chronic back pain. Continue gabapentin and nabumetone. 4. DVT prophylaxis. According to the Adult Thrombosis Prophylaxis Risk Factor Assessment Guide, the patient has a total risk factor score of 2 making her moderate risk. For now, SCDs will be utilized as DVT prophylaxis as the patient will be going urgently to the operating room when okayed by Dr. Beltran. Patient should be transitioned to subcu heparin. 5. Code status is full and again the patient indicates that her mom, Gabriela, is her healthcare proxy. TIME SPENT: Sixty five minutes was spent admitting this patient. [id number]/CPS #: [id number] Katina Barry DO Dictated Date/Time: 11/10/17317 Transcribed Date/Time 11/10/17 041 Copy to: CC: Katina Barry DO 3
--- NOTE | 2017-11-18 08:38 | RAD ---
HISTORY: Back pain, left reticular pattern COMPARISONS: MRI dated November 10, 2017, CT dated November 07, 2014 TECHNIQUE: Multiple contiguous axial CT scans were obtained of the lumbar spine with intravenous contrast, with coronal and sagittal multiplanar reformations. FINDINGS: SPINAL CANAL: Evaluation of the central canal is limited on CT technique; however, there is no obvious canalicular mass or epidural hemorrhage. ALIGNMENT: The alignment is normal. VERTEBRAL BODIES: The patient is status post laminectomy at L5-S1. There are erosive changes along the inferior plate of L5 and superior endplate of S1. This has developed when compared to the November 07, 2017 examination. JOINTS: There is also dilatation or dislocation. MUSCULATURE: Again noted is edema and inflammatory change of the paraspinal musculature. INTERVERTEBRAL DISCS: There is also intervertebral disc height at L5-S1. AXIAL IMAGES: At L4-L5, there is mild disc bulge. There is no osseous neuroforaminal or central canal stenosis. At L5-S1, a laminectomy defect is noted. There is inflammatory soft tissue along the laminectomy defect. There is a broad-based disc bulge. There is marginal osteophyte formation at the neuroforamina bilaterally. There is mild bilateral neural foraminal narrowing.. SOFT TISSUES: As noted above, there is inflammatory change in the paraspinal musculature. This extends to the subcutaneous soft tissues where there is a loculated fluid collection containing gas. This is decreased in size compared to the previous MRI. OTHER: None IMPRESSION: 1. AGAIN NOTED IS POST SURGICAL CHANGE AT L5-S1 WITH ASSOCIATED FLUID AND INFLAMMATORY CHANGE OF THE PARASPINAL MUSCLES AND SUBCUTANEOUS SOFT TISSUES EXTENDING TO THE LEVEL OF LAMINECTOMY. WHILE THIS MAY REPRESENT POST SURGICAL SEROMA OR PSEUDOMENINGOCELE, ABSCESS FROM SUPER INFECTION IS ALSO WITHIN THE DIFFERENTIAL. THE FLUID COLLECTIONS HAVE DECREASED IN SIZE COMPARED TO THE MRI OF NOVEMBER 10, 2017. 2. WHEN COMPARED TO THE PREVIOUS CT EXAMINATION, THERE HAS BEEN INCREASED EROSION OF THE ENDPLATES AT L5-S1. THIS IS CONCERNING FOR THE INTERVAL DEVELOPMENT OF OSTEOMYELITIS/DISCITIS. 3. MRI IS MORE SENSITIVE FOR THE DETECTION OF EPIDURAL FLUID COLLECTIONS.
--- NOTE | 2017-11-18 08:49 | RAD ---
HISTORY: Worsening back pain, abscess MRI, status post debridement COMPARISONS: MRI dated November 10, 2017, CT dated November 17, 2017 TECHNIQUE: The following sequences were obtained of the thoracic and lumbar spine: Sagittal and axial T1- and T2-weighted images, coronal T2-weighted images, and sagittal STIR images. Additionally, axial and sagittal T1 weighted images were obtained after contrast enhancement with a gadolinium-based intravenous contrast agent.. FINDINGS: SPINAL CORD, CONUS, AND CAUDA EQUINA: The visualized spinal cord, conus, and cauda equina are normal in caliber, position, and signal intensity. There is epidural enhancement at the level of laminectomy at L5-S1 without loculated fluid collection. ALIGNMENT: The alignment is normal. VERTEBRAL BODIES: There is a laminectomy defect at L5-S1 on the right. There is edema and enhancement along the endplates of L5-S1. JOINTS: There is no subluxation or dislocation. MUSCULATURE: There is edema and enhancement of the multifidus musculature on the right. INTERVERTEBRAL DISCS: There is loss of intervertebral disc height and T2 signal at L5-S1. There is intervertebral discs fluid at L5-S1. AXIAL IMAGES: There is no significant neural foraminal narrowing or central canal stenosis of the thoracic spine and of the lumbar spine from L1-L2 inferiorly through L3-L4. At L4-L5, there is mild disc bulge. There is no significant neural foraminal narrowing or central canal stenosis. L5-S1, [defect is noted. There is inflammatory change with enhancement along the epidural space without loculated fluid collection. There is marginal osteophyte formation at the neural foramina bilaterally. There is moderate bilateral neural foraminal narrowing. The loculated fluid collection noted at the level of laminectomy and in the paraspinal musculature on the November 10, 2014 examination has resolved. . SOFT TISSUES: There is fluid along the surgical tract to the level of laminectomy. There is a loculated fluid collection the subcutis fat extending is far superiorly as L2 measuring 5.9 cm in cranial caudal dimension and 0.9 x 1.8 cm transversely. This demonstrates peripheral enhancement. The subcutaneous component has developed from compared to the previous examination. OTHER: None. IMPRESSION: 1. AGAIN NOTED IS POST SURGICAL CHANGE AT L5-S1, WITH RIGHT-SIDED LAMINECTOMY. 2. THERE IS ENHANCEMENT ALONG THE EPIDURAL SPACE AT L5-S1 CONSISTENT WITH INFLAMMATION. THERE IS NO LOCULATED FLUID COLLECTION TO SUGGEST EPIDURAL ABSCESS. 3. THERE IS EDEMA AND ENHANCEMENT OF L5 AND S1 WITH FLUID IN THE INTERVERTEBRAL DISC SPACE. COMBINED WITH THE CT FINDINGS, THIS CONCERNING FOR OSTEOMYELITIS/DISCITIS. 4. THE DEEP LOCULATED FLUID COLLECTION AT THE LEVEL OF LAMINECTOMY NOTED ON THE PREVIOUS MRI EXAM HAS RESOLVED. THERE IS PERSISTENT INFLAMMATORY CHANGE. 5. THERE IS FLUID IN THE SUBCUTANEOUS FAT THAT IS PERIPHERALLY ENHANCING THAT HAS DEVELOPED WHEN COMPARED TO THE PREVIOUS EXAMINATION. AGAIN THIS MAY REPRESENT POSTSURGICAL SEROMA VERSUS PSEUDOMENINGOCELE, THOUGH ABSCESS IS ALSO WITHIN THE DIFFERENTIAL IN THE CORRECT CLINICAL SETTING. 6. UNREMARKABLE MRI OF THE THORACIC SPINE.
[2017-11-18] MEDS: Docusate CAP* 100 MG PO SCH ×2 (09:11→21:10)
[2017-11-18] MEDS: Nabumetone TAB* 500 MG PO SCH ×2 (09:11→21:27)
[2017-11-18] MEDS: Gabapentin CAP(*) 300 MG PO SCH ×2 (09:11→21:10)
[2017-11-18] MEDS ORDERED: Vancomycin(*) 1,500 MG in NS 0.9% 250 ML* 250 ML IVPB ONE (11:00)
[2017-11-18] MEDS: Linezolid 600 MG IVPREMIX(*) 600 MG/300 ML BAG IVPB SCH ×2 (12:31→22:46)
--- NOTE | 2017-11-18 15:51 | PN ---
Hospitalist Progress Note Date of Service: 11/18/17 Quick f/u and discussion regarding POC. Waiting for decision from NS about possibility of going back to the OR vs. waiting for atbx. Appreciate recs from NS. In the mean time, patient may shower if wound is covered.
[2017-11-18] MEDS: NS 0.9% 1000 ML* 1,000 ML IV SCH (17:01)
[2017-11-18] MEDS: ALPRAZolam TAB* 0.5 MG PO PRN (17:05)
--- NOTE | 2017-11-18 17:23 | CONS ---
CONSULTATION REPORT: DATE OF CONSULT: 11/18/17. REQUESTING PHYSICIAN: Dr. Alamo. CONSULTING SERVICE: Infectious Disease. REASON FOR CONSULTATION: Back pain in the setting of spine infection. IMPRESSION: 1. Recent lumbar diskectomy at L5-S1, complicated by spinal fluid leak and then wound abscess. She has been on vancomycin since that time and then had a severe onset of low back pain. Her CRP is improved since discharge. An MRI was done which showed epidural enhancement at L5-S1, no fluid collection, edema and enhancement at L5-S1 intervertebral disk space, concerning for osteomyelitis and diskitis. Resolution of the abscess at the level of laminectomy with ongoing inflammatory change. Fluid in the subcutaneous fat that enhances. She has some tenderness at the incision which otherwise is intact and there is no erythema or drainage. Taken together, I suspect she has persistence of the process that started at her last admission and that these changes may not represent worsening infection. 2. Sensation of flushing and pain during vancomycin infusion. 3. Penicillin allergy. RECOMMENDATIONS: Stop vancomycin, will start on linezolid 600 mg IV every 12 hours as she was not tolerating vancomycin well. We will recheck her C- reactive protein tomorrow and I will discuss the case with Dr. Beltran. HISTORY OF PRESENT ILLNESS: This is a 37-year-old woman who had a lumbar diskectomy at L5-S1 on 10/12, then had a spinal fluid leak which was repaired, then had some redness and drainage and an abscess at her incision site which was drained by Dr. Beltran. Cultures taken at that time grew Staph epidermidis. She has been on vancomycin for about the last 10 days, then recently over the last couple of days started having pain in the right arm during vancomycin infusion and a feeling of flushing and malaise during her infusions but seemed to resolve after infusion. Yesterday, she apparently had the onset of severe low back pain that prevented her from walking around. So she called ambulance and she was brought to the emergency room. Blood cultures were sent. She was continued on vancomycin. MRI was obtained with the results as above. White count was 13, down to 11 today without any change in antibiotic. At last check, it was 10 and 15 when she was here. Her C-reactive protein was 34. It was 155 a week ago. She has had no fevers, chills or sweats. Her appetite is good. She has had no diarrhea. She has had a rash around the right arm PICC site. PAST MEDICAL HISTORY: 1. Cervical cancer status post transabdominal hysterectomy, bilateral salpingo - oophorectomy. 2. Anxiety. 3. Depression. 4. Lumbar spine disk herniation status post L5-S1 diskectomy September 2017. 5. Status post appendectomy. 6. Status post cholecystectomy. 7. Status post hernia repair. 8. Status post D and C. 9. Status post tubal ligation. MEDICATIONS: 1. Albuterol. 2. Xanax as needed. 3. Docusate. 4. Reglan as needed. 5. Nabumetone twice a day. 6. Nicotine inhaler. 7. Vancomycin. ALLERGIES: ASPIRIN, PENICILLIN. FAMILY HISTORY: No recurrent infections. SOCIAL HISTORY: She lives in [place] with her mother. She has no travel or sick contact. There is second hand smoke around. REVIEW OF SYSTEMS: All negative to 14-point review of systems except as noted above. PHYSICAL EXAM: Vital Signs: Temperature 37, heart rate 80, respiratory rate 16 , blood pressure 120/80, oxygen saturation 99% on room air. In general, she is awake, and not in distress. Eating breakfast. Neurologic: She is oriented x3. Moves all extremities. Strength is 5/5 in the quadriceps, tibialis anterior , and gastrocnemius bilaterally. Sensation intact to light touch in both feet. HEENT: There is no conjunctival hemorrhage. Oropharynx without lesions. Neck : Supple. Lymph nodes: There is no inguinal, axillary or epitrochlear lymphadenopathy. Heart: Regular rate and rhythm without murmurs, rubs or gallops. Lungs: Clear to auscultation bilaterally. Abdomen: Soft, nontender , nondistended. There are bowel sounds present. Skin: There is no rash or splinter hemorrhages. Musculoskeletal: Lumbar spine incision, which is healing. There is no swelling, erythema or drainage. There is no fluctuance or crepitus. There is tenderness to palpation about the incision. LABORATORY DATA: Creatinine 0.5, CRP is 35. White blood cell count 11, hemoglobin 10. Platelets 564. Please see the impressions and recommendation as outlined above. Thank you for asking me to see Ms. Villarreal in consultation. [id number]/[facility] #: [id number] [facility]herry
[2017-11-19] MEDS: oxyCODONE TAB* 5 MG TAB PO PRN ×4 (02:30→20:12)
[2017-11-19] MEDS: HYDROmorphone INJ* 1 MG/ML CARPUJECT SYRINGE IV PRN ×5 (05:07→22:57)
[2017-11-19] MEDS: NS 0.9% 1000 ML* 1,000 ML IV SCH ×2 (07:54→21:46)
[2017-11-19] MEDS: Gabapentin CAP(*) 300 MG PO SCH ×3 (09:02→20:13)
[2017-11-19] MEDS: Docusate CAP* 100 MG PO SCH ×2 (09:02→20:12)
[2017-11-19] MEDS: Nabumetone TAB* 500 MG PO SCH ×2 (09:02→20:21)
[2017-11-19] MEDS: Linezolid 600 MG IVPREMIX(*) 600 MG/300 ML BAG IVPB SCH ×2 (10:55→23:00)
[2017-11-19] MEDS ORDERED: Methocarbamol TAB* 500 MG PO PRN (11:42)
--- NOTE | 2017-11-19 12:03 | PN ---
Progress Note - Progress Note Date of Service: 11/19/17 SOAP: Subjective: [Patient is s/p lumbar discectomy, CSF leak repair and wound infection washout/ reclosure. She is admitted now for pain management. She primarily complains of low back pain and soreness with mild lower extremity pain. Denies headache and nausea. She is able to get up out of bed. ] Objective: [ Vital Signs: Temp Pulse Resp BP Pulse Ox 98.4 F 81 19 125/80 99 11/19/17 11:00 11/19/17 11:00 11/19/17 15:42 11/19/17 11:00 11/19/17 11:00 General: Resting comfortably in bed. Neuro: Motor and sensory intact. Incision: Intact with sutures. No swelling or drainage. Extremities: Full ROM] Assessment: [Stable. Pain managed with several medications. ] Plan: [1. No further lumbar surgery. 2. Antibiotics changed per dr michel. 3. Continue pain management; increased gabapentin and added methocarbamol.]
--- NOTE | 2017-11-19 14:03 | PN ---
Subjective Date of Service: 11/19/17 Interval History: Patient seen and examined. No acute overnight events. Describes back pain as "sore" but she is managing. Denies SOB, no chest pain, no fevers or chills. Denies n/v/d. Tolerating new atbx without issue. Objective Active Medications: Acetaminophen (Tylenol Tab*) 650 mg PO Q6H PRN PRN Reason: FEVER/PAIN Albuterol (Ventolin 2.5 Mg/3 Ml Neb.Veronica*) 2.5 mg INH Q2H PRN PRN Reason: SOB/WHEEZING Alprazolam (Xanax Tab*) 0.5 mg PO BID PRN PRN Reason: ANXIETY Last Admin: 11/18/17 17:05 Dose: 0.5 mg Docusate Sodium (Colace Cap*) 200 mg PO BID [facility] Last Admin: 11/19/17 09:02 Dose: 200 mg Gabapentin (Neurontin Cap(*)) 300 mg PO TID [facility] Last Admin: 11/19/17 13:10 Dose: 300 mg Heparin Sodium (Porcine) (Heparin Flush Picc/Ml/Cvc(*)) 1 ml FLUSH 0600,1800 [facility] PRN Reason: Protocol Last Admin: 11/19/17 05:08 Dose: 1 ml Hydromorphone HCl (Dilaudid Injic*) 1 mg IV Q4H PRN PRN Reason: PAIN Last Admin: 11/19/17 13:09 Dose: 1 mg Sodium Chloride (Ns 0.9% 1000 Ml*) 1,000 mls @ 75 mls/hr IV PER RATE [facility] Last Admin: 11/19/17 07:54 Dose: 75 mls/hr Linezolid (Zyvox 600 Mg Ivpremix(*)) 600 mg in 300 mls @ 300 mls/hr IVPB Q12H [facility] Last Admin: 11/19/17 10:55 Dose: 300 mls/hr Melatonin (Melatonin (Nf)) 3 mg PO BEDTIME PRN; Protocol PRN Reason: Sleep Methocarbamol (Robaxin Tab*) 500 mg PO TID PRN PRN Reason: muscle spasm Last Admin: 11/19/17 13:10 Dose: 500 mg Nabumetone (Relafen Tab*) 500 mg PO BID [facility] Last Admin: 11/19/17 09:02 Dose: 500 mg Nicotine (Nicotine Inhaler*) 10 mg INH Q2H PRN PRN Reason: CRAVING Last Admin: 11/18/17 02:45 Dose: 10 mg Ondansetron HCl (Zofran Inj*) 4 mg IV Q6H PRN PRN Reason: NAUSEA Oxycodone HCl (Roxycodone Tab*) 10 mg PO Q4H PRN PRN Reason: PAIN Last Admin: 11/19/17 07:51 Dose: 10 mg Vital Signs - 8 hr 11/19/17 11/19/17 11/19/17 09:02 09:03 09:08 Temperature Pulse Rate Respiratory 18 18 18 Rate Blood Pressure (mmHg) O2 Sat by Pulse Oximetry 11/19/17 11/19/17 11/19/17 10:29 10:30 11:00 Temperature 98.4 F Pulse Rate 81 Respiratory 18 18 16 Rate Blood Pressure 125/80 (mmHg) O2 Sat by Pulse 99 Oximetry 11/19/17 11/19/17 11/19/17 11:50 13:09 13:10 Temperature Pulse Rate Respiratory 18 19 18 Rate Blood Pressure (mmHg) O2 Sat by Pulse Oximetry Oxygen Devices in Use Now: None Appearance: Alert, NAD Eyes: No Scleral Icterus Ears/Nose/Mouth/Throat: NL Teeth, Lips, Gums, Mucous Membranes Moist Neck: NL Appearance and Movements; NL JVP, Trachea Midline Respiratory: Symmetrical Chest Expansion and Respiratory Effort, Clear to Auscultation Cardiovascular: NL Sounds; No Murmurs; No JVD, RRR Abdominal: NL Sounds; No Tenderness; No Distention Extremities: No Edema, No Clubbing, Cyanosis Skin: No Rash or Ulcers, No Nodules or Sclerosis, - - kunbar wound approximated , no erythema or drainage noted Neurological: Alert and Oriented x 3, NL Sensation, NL Muscle Strength and Tone Nutrition: Taking PO's Result Diagrams: 11/18/17 05:24 11/17/17 21:20 Assess/Plan/Problems-Billing Assessment: This is a 37 year old female with hx of lumbar surgery with subsequent epidural abscess, s/p I&D, now presenting with discitis and increased pain. - Patient Problems (1) Discitis of lumbar region Code(s): M46.46 - DISCITIS, UNSPECIFIED, LUMBAR REGION SNOMED Code(s): 009880062 Comment: - Atbx changed to linezolid as per ID - Vanco DCd - No additional surgery as per NS - Gabapentin and pain control (2) Paraspinal abscess Code(s): M46.20 - OSTEOMYELITIS OF VERTEBRA, SITE UNSPECIFIED SNOMED Code(s): 38001671236607201 Comment: - S/P I&D, POD9 - Outpatient atbx infusion as per ID (3) Anxiety and depression Code(s): F41.8 - OTHER SPECIFIED ANXIETY DISORDERS SNOMED Code(s): 004506938 Comment: - Supportive care and Xanax PRN Status and Disposition: DC home wednesday when antibiotic change is set up with home infusion. Counseling and/or Coordination of Care Minutes: coordinated with patient and CM.
[2017-11-19] MEDS: ALPRAZolam TAB* 0.5 MG PO PRN ×2 (17:52→22:57)
[2017-11-20] MEDS: oxyCODONE TAB* 5 MG TAB PO PRN ×6 (01:18→22:55)
[2017-11-20] MEDS: HYDROmorphone INJ* 1 MG/ML CARPUJECT SYRINGE IV PRN ×2 (03:12→07:09)
--- NOTE | 2017-11-20 08:09 | PN ---
Subjective Date of Service: 11/20/17 Interval History: pt reports she is feeling better everyday she continues to have back pain and feels that the higher dose oxycodone works better as well as the Dilaudid prn. Plan to go home tomorrow if IV abx are set up. Plan to DC IV Dilaudid in preparation to go home tomorrow which the pt and I discussed and pt agrees with plan. She denies any fever/chills/nausea/vomiting/diarrhea or constipation. Reports she has been ambulating around unit. No CP/SOB. Objective Active Medications: Acetaminophen (Tylenol Tab*) 650 mg PO Q6H PRN PRN Reason: FEVER/PAIN Albuterol (Ventolin 2.5 Mg/3 Ml Neb.Veronica*) 2.5 mg INH Q2H PRN PRN Reason: SOB/WHEEZING Alprazolam (Xanax Tab*) 0.5 mg PO BID PRN PRN Reason: ANXIETY Last Admin: 11/19/17 22:57 Dose: 0.5 mg Docusate Sodium (Colace Cap*) 200 mg PO BID [facility] Last Admin: 11/19/17 20:12 Dose: 200 mg Gabapentin (Neurontin Cap(*)) 300 mg PO TID [facility] Last Admin: 11/19/17 20:13 Dose: 300 mg Heparin Sodium (Porcine) (Heparin Flush Picc/Ml/Cvc(*)) 1 ml FLUSH 0600,1800 [facility] PRN Reason: Protocol Last Admin: 11/20/17 06:00 Dose: Not Given Hydromorphone HCl (Dilaudid Injic*) 1 mg IV Q4H PRN PRN Reason: PAIN Last Admin: 11/20/17 07:09 Dose: 1 mg Sodium Chloride (Ns 0.9% 1000 Ml*) 1,000 mls @ 75 mls/hr IV PER RATE [facility] Last Admin: 11/19/17 21:46 Dose: 75 mls/hr Linezolid (Zyvox 600 Mg Ivpremix(*)) 600 mg in 300 mls @ 300 mls/hr IVPB Q12H [facility] Last Admin: 11/19/17 23:00 Dose: 300 mls/hr Melatonin (Melatonin (Nf)) 3 mg PO BEDTIME PRN; Protocol PRN Reason: Sleep Methocarbamol (Robaxin Tab*) 500 mg PO TID PRN PRN Reason: muscle spasm Last Admin: 11/19/17 13:10 Dose: 500 mg Nabumetone (Relafen Tab*) 500 mg PO BID [facility] Last Admin: 11/19/17 20:21 Dose: 500 mg Nicotine (Nicotine Inhaler*) 10 mg INH Q2H PRN PRN Reason: CRAVING Last Admin: 11/18/17 02:45 Dose: 10 mg Ondansetron HCl (Zofran Inj*) 4 mg IV Q6H PRN PRN Reason: NAUSEA Oxycodone HCl (Roxycodone Tab*) 10 mg PO Q4H PRN PRN Reason: PAIN Last Admin: 11/20/17 06:34 Dose: 10 mg Vital Signs - 8 hr 11/20/17 11/20/17 11/20/17 00:49 01:00 01:18 Temperature Pulse Rate Respiratory 16 16 16 Rate Blood Pressure (mmHg) O2 Sat by Pulse Oximetry 11/20/17 11/20/17 11/20/17 03:12 03:20 04:31 Temperature 98.6 F Pulse Rate 90 Respiratory 16 16 16 Rate Blood Pressure 118/77 (mmHg) O2 Sat by Pulse 100 Oximetry 11/20/17 11/20/17 11/20/17 06:34 07:09 07:11 Temperature Pulse Rate Respiratory 16 18 18 Rate Blood Pressure (mmHg) O2 Sat by Pulse Oximetry Oxygen Devices in Use Now: None Appearance: well developed 37 yo female A+Ox3 in NAD Eyes: No Scleral Icterus, PERRLA Ears/Nose/Mouth/Throat: NL Teeth, Lips, Gums, Mucous Membranes Moist Neck: NL Appearance and Movements; NL JVP Respiratory: Symmetrical Chest Expansion and Respiratory Effort, Clear to Auscultation Cardiovascular: NL Sounds; No Murmurs; No JVD, RRR, No Edema Abdominal: NL Sounds; No Tenderness; No Distention Extremities: No Edema, No Clubbing, Cyanosis Skin: No Rash or Ulcers, - - Lumbar back has stitches intact, no erythema, drainage or edema noted, appears to be healing well. Neurological: Alert and Oriented x 3, NL Sensation, NL Muscle Strength and Tone Lines/Tubes/Other Access: Clean, Dry and Intact PICC Line - RU arm intact, no erythema or edema noted Nutrition: Taking PO's Result Diagrams: 11/18/17 05:24 11/17/17 21:20 Assess/Plan/Problems-Billing Assessment: This is a 37 year old female with hx of lumbar surgery with subsequent epidural abscess, s/p I&D, now presenting with discitis and increased pain. - Patient Problems (1) Discitis of lumbar region Comment: - Atbx changed to linezolid as per ID - Vanco DCd d/t flushing - No additional surgery as per NS - Gabapentin and pain control (2) Paraspinal abscess Comment: - S/P I&D, POD10 - afebrile, CRP trending down - Continue Linezolid per ID - Outpatient atbx infusion as per ID (3) DVT prophylaxis Comment: - SCDs while in bed. Encourage ambulation (4) Anxiety and depression Comment: - Stable. Supportive care and Xanax PRN (5) Full code status Comment: Status and Disposition: DC home wednesday when antibiotic change is set up with home infusion.
[2017-11-20] MEDS: Nabumetone TAB* 500 MG PO SCH ×2 (08:10→20:54)
[2017-11-20] MEDS: Docusate CAP* 100 MG PO SCH ×2 (08:10→20:55)
[2017-11-20] MEDS: Gabapentin CAP(*) 300 MG PO SCH ×3 (08:39→20:53)
[2017-11-20] MEDS: Acetaminophen TAB* 325 MG PO SCH ×2 (09:02→16:22)
[2017-11-20] MEDS ORDERED: Magnesium Hydroxide LIQ* 30 ML UDC PO PRN (09:32)
[2017-11-20 09:53] LABS: ABS Basophils 0.1 10^3/ul (0-0.2); ABS Eosinophils 0.4 10^3/ul (0-0.6); ABS Lymphocytes 2.6 10^3/ul (1.0-4.8); ABS Nucleated RBC 0 10^3/ul; Eosinophil % 3.8 % (0-6); Hematocrit 30 % (35-47); Hemoglobin 9.9 g/dl (12.0-16.0); Lymphocyte % 23.4 % (25-47); Mean Corpuscular HGB Conc 33 g/dl (31-36); Mean Corpuscular Hemoglobin 30 pg (27-31); Mean Corpuscular Volume 90 fL (80-97); Mean Platelet Volume 7 um3 (7.4-10.4); Nucleated Red Blood Cells % 0.1; Platelet Count 526 10^3/ul (150-450); Red Blood Count 3.32 10^6/ul (4.0-5.4); Red Cell Distribution Width 13 % (10.5-15); White Blood Count 11.2 10^3/ul (3.5-10.8)
[2017-11-20 10:03] LABS: EGFR Non-African American 98.5 (>60)
[2017-11-20] MEDS: Linezolid 600 MG IVPREMIX(*) 600 MG/300 ML BAG IVPB SCH ×2 (10:19→22:50)
--- NOTE | 2017-11-20 11:06 | PN ---
Progress Note - Progress Note Date of Service: 11/20/17 SOAP: Subjective: [Patient admitted for pain management. Complains of low back pain but seems more comfortable this morning. Mild lower extremity pain, primarily low back. Able to get up out of bed independently. Denies headache, nausea, chills. ] Objective: [ Vital Signs: Temp Pulse Resp BP Pulse Ox 97.9 F 90 18 105/77 97 11/20/17 07:43 11/20/17 07:43 11/20/17 10:32 11/20/17 07:43 11/20/17 07:43 General: Laying comfortably in bed. No acute pain or distress. Neuro: Motor and sensory intact. Incision: Intact with sutures. Clean and without swelling or drainage. Extremities: Full ROM, pulses 2+ and equal.] Assessment: [Stable, no further lumbar surgery. S/p lumbar discectomy, CSF leak repair and wound infection washout/reclosure within the past 8 weeks. Recovering slowly, difficulty with pain management. ] Plan: [1. Discontinue IV dilaudid. 2. Continue PO pain management. 3. Discharge home when antibiotics ready. F/u with Dr. Beltran in [place] office 11/25/17.]
[2017-11-20] MEDS: NS 0.9% 1000 ML* 1,000 ML IV SCH (14:02)
[2017-11-20] MEDS ORDERED: HYDROmorphone TAB* 4 MG PO ONE (19:35)
[2017-11-21] MEDS: Acetaminophen TAB* 325 MG PO SCH ×2 (01:43→08:02)
[2017-11-21] MEDS: oxyCODONE TAB* 5 MG TAB PO PRN ×2 (03:22→08:02)
[2017-11-21] MEDS: NS 0.9% 1000 ML* 1,000 ML IV SCH (04:21)
[2017-11-21] MEDS: ALPRAZolam TAB* 0.5 MG PO PRN (04:33)
--- NOTE | 2017-11-21 07:47 | DCNOTE ---
Subjective Date of Service: 11/21/17 Interval History: Patient reports she feels like she can go home today. Feels that she is improving daily. She reports more pain at night. She was given Dilaudid PO last night and was able to sleep but feels a little drowsy this morning. Reports some left side shooting pain down her leg intermittently. No fevers or chills. No N/V/D or constipation. Objective Active Medications: Acetaminophen (Tylenol Tab*) 975 mg PO Q8H [facility] Last Admin: 11/21/17 01:43 Dose: 975 mg Albuterol (Ventolin 2.5 Mg/3 Ml Neb.Veronica*) 2.5 mg INH Q2H PRN PRN Reason: SOB/WHEEZING Alprazolam (Xanax Tab*) 0.5 mg PO BID PRN PRN Reason: ANXIETY Last Admin: 11/21/17 04:33 Dose: 0.5 mg Cholecalciferol (Vitamin D Tab*) 2,000 units PO DAILY [facility] Docusate Sodium (Colace Cap*) 200 mg PO BID [facility] Last Admin: 11/20/17 20:55 Dose: 200 mg Gabapentin (Neurontin Cap(*)) 300 mg PO TID [facility] Last Admin: 11/20/17 20:53 Dose: 300 mg Heparin Sodium (Porcine) (Heparin Flush Picc/Ml/Cvc(*)) 1 ml FLUSH 0600,1800 [facility] PRN Reason: Protocol Last Admin: 11/21/17 05:27 Dose: Not Given Sodium Chloride (Ns 0.9% 1000 Ml*) 1,000 mls @ 75 mls/hr IV PER RATE [facility] Last Admin: 11/21/17 04:21 Dose: 75 mls/hr Linezolid (Zyvox 600 Mg Ivpremix(*)) 600 mg in 300 mls @ 300 mls/hr IVPB Q12H [facility] Last Admin: 11/20/17 22:50 Dose: 300 mls/hr Magnesium Hydroxide (Milk Of Magnesia Liq*) 30 ml PO Q6H PRN PRN Reason: CONSTIPATION Last Admin: 11/20/17 10:18 Dose: 30 ml Melatonin (Melatonin (Nf)) 3 mg PO BEDTIME PRN; Protocol PRN Reason: Sleep Methocarbamol (Robaxin Tab*) 500 mg PO TID PRN PRN Reason: muscle spasm Last Admin: 11/19/17 13:10 Dose: 500 mg Nabumetone (Relafen Tab*) 500 mg PO BID [facility] Last Admin: 11/20/17 20:54 Dose: 500 mg Nicotine (Nicotine Inhaler*) 10 mg INH Q2H PRN PRN Reason: CRAVING Last Admin: 11/18/17 02:45 Dose: 10 mg Ondansetron HCl (Zofran Inj*) 4 mg IV Q6H PRN PRN Reason: NAUSEA Oxycodone HCl (Roxycodone Tab*) 10 mg PO Q4H PRN PRN Reason: PAIN Last Admin: 11/21/17 03:22 Dose: 10 mg Vital Signs - 8 hr 11/20/17 11/21/17 11/21/17 23:46 01:17 01:19 Temperature 98.5 F Pulse Rate 84 Respiratory 16 17 17 Rate Blood Pressure 124/86 (mmHg) O2 Sat by Pulse 100 Oximetry 11/21/17 11/21/17 11/21/17 01:44 03:09 03:22 Temperature 98.1 F Pulse Rate 71 Respiratory 18 18 17 Rate Blood Pressure 117/76 (mmHg) O2 Sat by Pulse 100 Oximetry 11/21/17 04:33 Temperature Pulse Rate Respiratory 17 Rate Blood Pressure (mmHg) O2 Sat by Pulse Oximetry Oxygen Devices in Use Now: None Appearance: 37 yo female sitting up on the side of the bed in NAD. A+O x3 Eyes: No Scleral Icterus, PERRLA Neck: NL Appearance and Movements; NL JVP Respiratory: Symmetrical Chest Expansion and Respiratory Effort, Clear to Auscultation Cardiovascular: NL Sounds; No Murmurs; No JVD, RRR, No Edema Abdominal: NL Sounds; No Tenderness; No Distention Extremities: No Edema, No Clubbing, Cyanosis Skin: - - lower lumbar has intact stitches, no drainage, erythema - appears to be healing well Neurological: Alert and Oriented x 3, NL Sensation, NL Gait, NL Muscle Strength and Tone Lines/Tubes/Other Access: Clean, Dry and Intact PICC Line Nutrition: Taking PO's Result Diagrams: 11/20/17 09:40 11/20/17 09:40 Assess/Plan/Problems-Billing Assessment: This is a 37 year old female with hx of lumbar surgery with subsequent epidural abscess, s/p I&D, now presenting with discitis and increased pain. - Patient Problems (1) Discitis of lumbar region Comment: - Atbx changed to linezolid as per ID - Vanco DCd d/t flushing - No additional surgery as per NS - Gabapentin and pain control - discussed at length the combination of medications including her home dose of xanax - Discussed No alcohol consumption. - f/u with NS in [place] 11/25 (2) Paraspinal abscess Comment: - S/P I&D, POD11 - afebrile, CRP trending down - Continue Linezolid per ID - Outpatient atbx infusion as per ID (3) DVT prophylaxis Comment: - SCDs while in bed. Encourage ambulation (4) Anxiety and depression Comment: - Stable. Supportive care and Xanax PRN (5) Full code status Comment: Status and Disposition: DC home today. Reviewed discharge medications. Recommended NO alcohol consumption and holding xanax as it is prn while on narcotic medications.
[2017-11-21] MEDS: Nabumetone TAB* 500 MG PO SCH (08:01)
[2017-11-21] MEDS: Docusate CAP* 100 MG PO SCH (08:01)
[2017-11-21] MEDS: Gabapentin CAP(*) 300 MG PO SCH (08:01)
[2017-11-21 08:08] VITALS: BP 111/69
--- NOTE | 2017-11-21 08:26 | PN ---
Progress Note - Progress Note Date of Service: 11/21/17 SOAP: Subjective: [S/p lumbar discectomy, CSF leak repair and lumbar wound infection washout/ reclosure in the last 6 weeks. Admitted primarily for pain management. Complains of low back soreness this morning. Feeling well this morning. Denies headache, nausea, chest pain, dizziness. Pain well controlled with PO pain meds. Ambulating independently. Eating, drinking and voiding without difficulty.] Objective: [ Vital Signs: Temp Pulse Resp BP Pulse Ox 97.4 F 77 16 111/69 100 11/21/17 07:45 11/21/17 07:45 11/21/17 08:02 11/21/17 07:45 11/21/17 07:45 General: Alert and in no acute distress. Laying comfortably in bed. Neuro: Motor and sensory intact. Incision: Intact with suture. No swelling or drainage. Extremities: Full ROM] Assessment: [Stable. ] Plan: [1. Discharge home today, home antibiotics ready. 2. Discharge instructions for neurosurgery restrictions and f/u discussed with the patient. ]
[2017-11-21] MEDS ORDERED: Cholecalciferol TAB* 1000 UNITS PO SCH (09:00)
--- NOTE | 2017-11-22 04:12 | DS ---
CC: Dr. Greene; Dr. Beltran; Dr. Jiang* DISCHARGE SUMMARY: DATE 0F ADMISSION: 11/18/17 DATE OF DISCHARGE: 11/21/17 PROVIDER: Andrew Lunsford NP. ATTENDING PHYSICIAN: Dr. Arndt* (report dictated by Andrew Lunsford NP). PRIMARY CARE DOCTOR: Dr. Greene. NEUROSURGEON: Dr. Beltran. INFECTIOUS DISEASE: Dr. Jiang. DISCHARGE DIAGNOSES: 1. Status post L5-S1 diskectomy with subsequent dural tear with CSF leak with wound infection, now status post wound repair and washout, with back pain. 2. Vitamin D deficiency. SECONDARY DIAGNOSES: 1. Anxiety. 2. Depression. 3. History of cervical cancer, status post transabdominal hysterectomy, bilateral salpingo-oophorectomy. 4. Lumbar spine disk herniation, status post L5-S1 diskectomy, September 2017. 5. Status post appendectomy. 6. Status post cholecystectomy. DISCHARGE MEDICATIONS: 1. Acetaminophen 1000 mg p.o. q. 8 hours. 2. Vitamin D 2000 units p.o. daily. 3. Colace 200 mg p.o. b.i.d. 4. Gabapentin 300 mg p.o. t.i.d., please note this is an increase from b.i.d. 5. 500 mg p.o. t.i.d. p.r.n. 6. Oxycodone 10 mg p.o. q.4 hours p.r.n., max daily dose 6 tabs. 7. Xanax 0.5 mg p.o. b.i.d. p.r.n. 8. Zyvox 600 mg IV piggyback q. 12 hours per ID. Medications on hold: Relafen 500 mg p.o. b.i.d. ALLERGIES: ASPIRIN and PENICILLIN. HISTORY OF PRESENT ILLNESS AND HOSPITAL COURSE: Ms. Villarreal is a 37-year-old female who underwent a lumbar diskectomy at L5-S1 on 10/12/17, then had a spinal fluid leak which was repaired and had some redness and drainage and has been noted abscess at her incision site, which was drained by Dr. Beltran. Cultures taken at that time grew Staph epidermidis and she was placed on vancomycin. However, a couple of days prior to her presentation at [facility] Emergency Room, she started having severe low back pain, which prevented her from walking around in which she called an ambulance and was brought to the emergency department for further evaluations. She underwent an MRI which showed epidural enhancement at the L5-S1, no fluid collection, edema enhancement at L5-S1 intervertebral disk space concerning for osteomyelitis and diskitis. Resolution of the abscess at the level of laminectomy with ongoing inflammatory change. Fluid in the subcutaneous fat enhances. It was noted that her CRP was trending down. She was switched from vancomycin due to flushing to Zyvox, which she tolerated well. Her pain was initially controlled by IV Dilaudid and this was stopped yesterday in which she was switched to oxycodone 10 mg p.o. q. 4 hours which has controlled her pain. She has been ambulating around her room in the unit, overall doing well without any overt signs of over sedation. She has a right upper arm PICC, which is intact and working well. She has been continued to be followed by the neurosurgery team and is cleared for discharge to home today. She has remained afebrile throughout her hospitalization with stable vital signs. WBCs on admission was 13.4, trending down to 11.2. CRP on 11/19/17 was 19.15, which has continued to trend down from her previous CRP of 155 on . She had a negative beta hCG serum test. Her vitamin D level is noted to be 11.5 and she was started on vitamin D3 supplementation and it was discussed with the patient that she needs to continue this at home and recheck a level in 6 months. The patient is stable for discharge to home today. She agrees with the plan of care. Discharge instructions were reviewed with the patient. She was instructed to abstain from alcohol due to her combination of medications as well as her Xanax as p.r.n. and she was encouraged to only take this if necessary. She was encouraged to hold it during her combination of these medications with opiates, gabapentin and muscle relaxer. She was instructed to hold these medications if she were to experience oversedation and immediately go to the emergency department as well as return to the emergency department with any fevers, chills, nausea, vomiting or any concerning symptoms. FOLLOWUP: She is to follow up with Dr. Beltran on 11/25/18 in the [place] [facility]. Follow up with Dr. Jiang as previously scheduled. She is being followed by [facility] with home IV antibiotic infusion services who will monitor her PICC line, change the dressing, and heparin flushes per protocol. Weekly CMP, CRP, and CBC with results sent to Dr. Jiang and Dr. Beltran as well as her PCP, Dr. Greene. TIME SPENT: Approximately 60 minutes was spent on this discharge. ANDREW LUNSFORD, CHREI [id number]/[facility] #: [id number] SUM[place]
== END 2017-11-21 10:32 | disposition home or self-care (01) | DRG 347 ==
LOC: ED 18:55 → SSU 11-18 00:49 → OBSVTOIN 11-19 09:00 → INTOOBSV 11-19 11:37 → OBSVTOIN 11-19 11:37
PROVIDERS: ADMIT Hospitalist; ATTEND Internal Medicine
DX: M46.46 Discitis, unspecified, lumbar region (principal); I95.89 Other hypotension; M46.26 Osteomyelitis of vertebra, lumbar region; L02.212 Cutaneous abscess of back [any part, except buttock and flank]; F41.8 Other specified anxiety disorders; Z79.899 Other long term (current) drug therapy; Z88.6 Allergy status to analgesic agent; Z88.0 Allergy status to penicillin; Z82.49 Family history of ischemic heart disease and other diseases of the circulatory system; Z87.891 Personal history of nicotine dependence; Z85.41 Personal history of malignant neoplasm of cervix uteri
CPT/HCPCS: 36415; 72132; 72157; 72158; 80048; 80053; 82306; 83735; 84702; 85025; 85027; 85610; 85730; 86140; 86850; 86900; 86901; 93005; 99284; A9270-GY; A9579; G0378; J1100; J1170; J2020; J2765; J3370; Q9967

== ENCOUNTER 2017-12-13 20:06 | Emergency (ER) | payer OTHER ==
[2017-12-13] MEDS ORDERED: HYDROmorphone INJ* 2 MG/ML CARPUJECT SYRINGE IV SLOW PU ONE (21:30)
[2017-12-13 21:59] LABS: ABS Basophils 0.1 10^3/ul (0-0.2); ABS Eosinophils 0.3 10^3/ul (0-0.6); ABS Lymphocytes 2.4 10^3/ul (1.0-4.8); ABS Monocytes 0.8 10^3/ul (0-0.8); ABS Neutrophils 4.7 10^3/ul (1.5-7.7); ABS Nucleated RBC 0 10^3/ul; Eosinophil % 3.4 % (0-6); Hematocrit 33 % (35-47); Hemoglobin 10.9 g/dl (12.0-16.0); Lymphocyte % 29.3 % (25-47); Mean Corpuscular HGB Conc 33 g/dl (31-36); Mean Corpuscular Hemoglobin 30 pg (27-31); Mean Corpuscular Volume 91 fL (80-97); Mean Platelet Volume 7.8 um3 (7.4-10.4); Nucleated Red Blood Cells % 0; Platelet Count 304 10^3/ul (150-450); Red Blood Count 3.61 10^6/ul (4.0-5.4); Red Cell Distribution Width 14 % (10.5-15); White Blood Count 8.3 10^3/ul (3.5-10.8)
[2017-12-13 22:42] LABS: EGFR Non-African American 87.9 (>60)
[2017-12-13 23:06] LABS: INR 1.08 (0.77-1.02)
[2017-12-13] MEDS ORDERED: Iohexol 300* (CONTRAST) 10 ML SDV IV ONE (23:33)
[2017-12-14] MEDS ORDERED: HYDROmorphone INJ* 2 MG/ML CARPUJECT SYRINGE IV SLOW PU ONE (00:30)
[2017-12-14 00:32] VITALS: BP 105/71
--- NOTE | 2017-12-14 08:05 | RAD ---
HISTORY: Low back pain, history of spinal surgery with abscess COMPARISONS: CT dated December 05, 2017 and MRI dated November 18, 2017, MRI dated October 25, 2017 TECHNIQUE: Multiple contiguous axial CT scans were obtained of the lumbar spine with intravenous contrast, with coronal and sagittal multiplanar reformations. FINDINGS: SPINAL CANAL: Evaluation of the central canal is limited on CT technique; however, there is no obvious canalicular mass or epidural hemorrhage. ALIGNMENT: The alignment is normal. VERTEBRAL BODIES: There is a laminectomy defect at L5-S1. Again noted are endplate erosive changes at L5-S1 similar to December 05, 2009 examination. JOINTS: There is mild facet hypertrophy change along the lower lumbar spine. MUSCULATURE: There is post surgical change along the paraspinal musculature, without appreciable loculated fluid collection. INTERVERTEBRAL DISCS: There is loss of intervertebral disc height at L5-S1. As noted above, there is endplate erosion at L5-S1. AXIAL IMAGES: T12-L1: There is no osseous neural foraminal narrowing or central canal stenosis. L1-L2: There is no osseous neural foraminal narrowing or central canal stenosis. L2-L3: There is no osseous neural foraminal narrowing or central canal stenosis. L3-L4: There is no osseous neural foraminal narrowing or central canal stenosis. L4-L5: There is mild prominence of the anterior epidural soft tissue at L4-L5. There is no osseous neural foraminal narrowing or central canal stenosis. L5-S1: There is mild prominence of the anterior epidural soft tissue at L4-L5. There is no osseous neural foraminal narrowing or central canal stenosis. SOFT TISSUES: There is inflammatory change in the soft tissues posterior to the paraspinal musculature as noted above. OTHER: None IMPRESSION: 1. AGAIN NOTED ARE FINDINGS CONSISTENT WITH OSTEOMYELITIS DISCITIS AT L5-S1 SIMILAR TO THE DECEMBER 05, 2009 EXAMINATION. 2. THERE IS NO LOCULATED FLUID COLLECTION TO SUGGEST ABSCESS. 3. THERE IS MILD PROMINENCE OF ANTERIOR EPIDURAL SOFT TISSUE AT L4-L5 AND L5-S1 WITHOUT NARROWING OF THE CENTRAL CANAL. THIS MAY REFLECT INFLAMMATORY SOFT TISSUE NOTED ON THE MRI OF NOVEMBER 18, 2017. IF THERE IS PERSISTENT CLINICAL CONCERN FOR EPIDURAL ABSCESS, CONTRAST ENHANCED MRI IS MORE SENSITIVE.
--- NOTE | 2017-12-16 15:52 | ED ---
Gentry Canales Angela, scribed for Michael Sharp MD on 12/13/17 at 2257 . Progress - Progress Note Progress Note: Lumbar spine CT, as read by radiologist IMPRESSION: Endplate destruction at L5-S1 is stable in appearance relative to the prior study. This may reflect component of discitis and osteomyelitis. There is mild canal stenosis related to disc bulge which is stable from prior study. Dr. Sharp has reviewed this radiology report. Re-Evaluation - Re-Evaluation First Eval Re-Evaluation Time: 01:15 Change: Improved Comment: Pt reports feeling better after Dilaudid. I reviewed the CT results with the pt. She agrees to and understands discharge instructions. Course/Dx - Course Course Of Treatment: Pt reports feeling better after Dilaudid. I reviewed the CT results with the pt. Pt is instructed to return to the infusion center tomorrow for PICC line and antibiotics. She agrees to and understands discharge instructions. Discharge - Sign-Out/Discharge Documenting (check all that apply): Discharge - discharge to home - Discharge Plan Condition: Improved Disposition: HOME Patient Education Materials: Back Pain (ED) Referrals: William Beltran MD [Medical Doctor] - Azul Greene MD [Primary Care Provider] - Additional Instructions: PLEASE RETURN TO INFUSION CENTER TOMORROW FOR PICC LINE PLACEMENT FOR HOME ANTIBIOTICS AND KEEP SITE AND DRESSINGS CLEAN PLEASE MAKE AN APPOINTMENT FIRST THING IN THE MORNING TO BE SEEN BY YOUR NEUROSURGEON WITHIN 1 WEEK PLEASE RETURN IMMEDIATELY TO THE ER IF YOU HAVE ANY WORSENING OR CONCERNING SYMPTOMS PLEASE MAKE AN APPOINTMENT TO BE SEEN BY YOUR PRIMARY CARE DOCTOR WITHIN 1 WEEK The documentation as recorded by the Gentry guillermo Angela accurately reflects the service I personally performed and the decisions made by me, Michael Sharp MD.
--- NOTE | 2017-12-16 15:52 | ED ---
Anthony Canales Stephanie, scribed for Michael Sharp MD on 12/13/17 at 2137 . Back Pain - HPI Summary HPI Summary: The pt is a 37 y/o F presenting to the ED with c/o lower back pain that began on 12/11/17. The pt has a hx of chronic back pain. She states on the back of her neck down to her feet feels like bricks are falling on me. Symptoms include chills, LE weakness and paresthesia along the bilateral LE. She denies fever, dysuria and hematuria. - History of Current Complaint Chief Complaint: EDBackInjuryPain Stated Complaint: BACK PAIN Time Seen by Provider: 12/13/17 21:30 Hx Obtained From: Patient Onset/Duration: Gradual Onset, Lasting Days - 2, Still Present Onset/Duration: Started Days Ago, Still Present Timing: Constant Back Pain Location: Is Discrete @ - lower back Severity Currently: Severe Pain Intensity: 10 Pain Scale Used: 0-10 Numeric Aggravating Symptom(s): Movement, Lifting, Bending Alleviating Symptom(s): Position Associated Signs And Symptoms: Positive: Weakness, Tingling, Other - negative: dysuria, hematuria. Negative: Fever - Allergies/Home Medications Allergies/Adverse Reactions: Allergies Allergy/AdvReac Type Severity Reaction Status Date / Time aspirin Allergy Anaphylatic Verified 11/18/17 01:52 Shock Penicillins Allergy Anaphylatic Verified 11/18/17 01:52 Shock PMH/Surg Hx/FS Hx/Imm Hx Endocrine/Hematology History: Denies: Hx Diabetes Cardiovascular History: Denies: Hx Coronary Artery Disease, Hx Hypertension, Hx Pacemaker/ICD Respiratory History: Reports: Other Respiratory Problems/Disorders - smoker Musculoskeletal History: Reports: Other Musculoskeletal History - back pain Sensory History: Denies: Hx Contacts or Glasses, Hx Hearing Aid Opthamlomology History: Denies: Hx Contacts or Glasses Neurological History: Reports: Hx Headaches, Other Neuro Impairments/Disorders - CSF leak, bilateral leg numbess Psychiatric History: Reports: Hx Anxiety - prn med, Hx Depression - prn med Denies: Hx Panic Disorder - Surgical History Surgery Procedure, Year, and Place: bilateral ear tubes placed [place] a child [place] - 2006 [place]. tubal ligation - 2006 [place]. hysterectomy 2012 [place]. hernia repair 2015 - [place] Hx Anesthesia Reactions: No - Immunization History Date of Influenza Vaccine: Has not received Infectious Disease History: No Infectious Disease History: Denies: Hx of Known/Suspected MRSA, Traveled Outside the [place] in Last 30 Days - Family History Known Family History: Positive: Hypertension, Other Family History: Lung CA, Alzheimer's, sleep apnea - Social History Occupation: Unemployed Lives: Alone Alcohol Use: None Substance Use Type: Reports: Marijuana, Prescribed Substance Use Comment - Amount & Last Used: reports as needed - last used Smoking Status (MU): Light Every Day Tobacco Smoker Type: Cigarettes Amount Used/How Often: reports down to 5-10 per day for approx 7 years Review of Systems Positive: Chills. Negative: Fever Negative: dysuria, hematuria Positive: Other - back pain Positive: Paresthesia - bilateral LE All Other Systems Reviewed And Are Negative: Yes Physical Exam - Summary Physical Exam Summary: Appearance: Mildly ill-appearing, Well-nourished, Appears tired and fatigued Skin: Warm Eyes: Normal ENT: Normal Neck: Supple, nontender Respiratory: Clear to auscultation Cardiovascular: Normal S1, S2. No murmurs. Normal distal pulses in tibial and radial bilaterally. Abdomen: Soft, nontender Musculoskeletal: Normal, Strength/ROM Intact, midline cervical scar seen on lower lumbar area of back, lower netbackup administrator to palpation, no surrounding erythema or crepitus Neurological: A&Ox3, weakness of L UE and L LE consistent with baseline Psychiatric: Normal General: No acute distress Triage Information Reviewed: Yes Vital Signs On Initial Exam: Initial Vitals Temp Pulse Resp BP Pulse Ox 99.0 F 84 16 124/100 10 12/13/17 20:11 12/13/17 20:11 12/13/17 20:11 12/13/17 20:11 12/13/17 20:11 Vital Signs Reviewed: Yes Diagnostics - Vital Signs Vital Signs Temp Pulse Resp BP Pulse Ox 12/13/17 20:11 99.0 F 84 16 124/100 10 - Laboratory Lab Results: Lab Results 12/13/17 12/13/17 12/13/17 Range/Units 21:44 21:44 21:44 WBC 8.3 (3.5-10.8) 10^3/ul RBC 3.61 L (4.0-5.4) 10^6/ul Hgb 10.9 L (12.0-16.0) g/dl Hct 33 L (35-47) % MCV 91 (80-97) fL MCH 30 (27-31) pg MCHC 33 (31-36) g/dl RDW 14 (10.5-15) % Plt Count 304 (150-450) 10^3/ul MPV 7.8 (7.4-10.4) um3 Neut % (Auto) 56.4 (38-83) % Lymph % (Auto) 29.3 (25-47) % [place] % (Auto) 9.7 H (0-7) % Eos % (Auto) 3.4 (0-6) % Baso % (Auto) 1.2 (0-2) % Absolute Neuts (auto) 4.7 (1.5-7.7) 10^3/ul Absolute Lymphs (auto) 2.4 (1.0-4.8) 10^3/ul Absolute Monos (auto) 0.8 (0-0.8) 10^3/ul Absolute Eos (auto) 0.3 (0-0.6) 10^3/ul Absolute Basos (auto) 0.1 (0-0.2) 10^3/ul Absolute Nucleated RBC 0 10^3/ul Nucleated RBC % 0 INR (Anticoag Therapy) 1.08 H (0.77-1.02) APTT 36.5 H (26.0-36.3) seconds Sodium 138 (133-145) mmol/L Potassium 3.6 (3.5-5.0) mmol/L Chloride 105 (101-111) mmol/L Carbon Dioxide 25 (22-32) mmol/L Anion Gap 8 (2-11) mmol/L BUN 8 (6-24) mg/dL Creatinine 0.75 (0.51-0.95) mg/dL Est GFR ( Amer) 113.1 (>60) Est GFR (Non-Af Amer) 87.9 (>60) BUN/Creatinine Ratio 10.7 (8-20) Glucose 89 (70-100) mg/dL Lactic Acid (0.5-2.0) mmol/L Calcium 9.1 (8.6-10.3) mg/dL Total Bilirubin 0.40 (0.2-1.0) mg/dL AST 15 (13-39) U/L ALT 15 (7-52) U/L Alkaline Phosphatase 66 (34-104) U/L C-Reactive Protein 4.66 (< 5.00) mg/L Total Protein 7.0 (6.4-8.9) g/dL Albumin 3.7 (3.2-5.2) g/dL Globulin 3.3 (2-4) g/dL Albumin/Globulin Ratio 1.1 (1-3) Beta HCG, Quant 2.39 mIU/mL Blood Type Antibody Screen 12/13/17 12/13/17 Range/Units 21:44 21:44 WBC (3.5-10.8) 10^3/ul RBC (4.0-5.4) 10^6/ul Hgb (12.0-16.0) g/dl Hct (35-47) % MCV (80-97) fL MCH (27-31) pg MCHC (31-36) g/dl RDW (10.5-15) % Plt Count (150-450) 10^3/ul MPV (7.4-10.4) um3 Neut % (Auto) (38-83) % Lymph % (Auto) (25-47) % [place] % (Auto) (0-7) % Eos % (Auto) (0-6) % Baso % (Auto) (0-2) % Absolute Neuts (auto) (1.5-7.7) 10^3/ul Absolute Lymphs (auto) (1.0-4.8) 10^3/ul Absolute Monos (auto) (0-0.8) 10^3/ul Absolute Eos (auto) (0-0.6) 10^3/ul Absolute Basos (auto) (0-0.2) 10^3/ul Absolute Nucleated RBC 10^3/ul Nucleated RBC % INR (Anticoag Therapy) (0.77-1.02) APTT (26.0-36.3) seconds Sodium (133-145) mmol/L Potassium (3.5-5.0) mmol/L Chloride (101-111) mmol/L Carbon Dioxide (22-32) mmol/L Anion Gap (2-11) mmol/L BUN (6-24) mg/dL Creatinine (0.51-0.95) mg/dL Est GFR ( Amer) (>60) Est GFR (Non-Af Amer) (>60) BUN/Creatinine Ratio (8-20) Glucose (70-100) mg/dL Lactic Acid 0.6 (0.5-2.0) mmol/L Calcium (8.6-10.3) mg/dL Total Bilirubin (0.2-1.0) mg/dL AST (13-39) U/L ALT (7-52) U/L Alkaline Phosphatase (34-104) U/L C-Reactive Protein (< 5.00) mg/L Total Protein (6.4-8.9) g/dL Albumin (3.2-5.2) g/dL Globulin (2-4) g/dL Albumin/Globulin Ratio (1-3) Beta HCG, Quant mIU/mL Blood Type A Negative Antibody Screen Negative Result Diagrams: 12/13/17 21:44 12/13/17 21:44 Lab Statement: Any lab studies that have been ordered have been reviewed, and results considered in the medical decision making process. Back Pain Course/Dx - Course Assessment/Plan: CT negative for any acute changes from prior CT. Neurologically intact, pt feels improved here in ED and requests pain medications. Patient's picc line appeared unkempt and dirty on examination and deemed to be at risk for infection, necessitating removal on today's visit. I instructed pt to fu with infusion center and her surgeon for replacement if necessary and to return for any worsening or concerning sxs. Pt agrees to and understands dc instructions. - Diagnoses Provider Diagnoses: Back pain Discharge - Sign-Out/Discharge Documenting (check all that apply): Discharge - Discharge Plan Condition: Improved Disposition: HOME Prescriptions: Acetaminop/Codeine 30 MG TAB* [Tylenol/Codeine 30 MG TAB*] 1 tab PO Q6H PRN #12 tab MDD 4 tabs PRN Reason: Pain - Severe Patient Education Materials: Back Pain (ED) Referrals: William Beltran MD [Medical Doctor] - Azul Greene MD [Primary Care Provider] - Additional Instructions: PLEASE RETURN TO INFUSION CENTER TOMORROW FOR PICC LINE PLACEMENT FOR HOME ANTIBIOTICS AND KEEP SITE AND DRESSINGS CLEAN PLEASE MAKE AN APPOINTMENT FIRST THING IN THE MORNING TO BE SEEN BY YOUR NEUROSURGEON WITHIN 1 WEEK PLEASE RETURN IMMEDIATELY TO THE ER IF YOU HAVE ANY WORSENING OR CONCERNING SYMPTOMS PLEASE MAKE AN APPOINTMENT TO BE SEEN BY YOUR PRIMARY CARE DOCTOR WITHIN 1 WEEK - Billing Disposition and Condition Condition: IMPROVED Disposition: HOME The documentation as recorded by the Anthony guillermo Stephanie accurately reflects the service I personally performed and the decisions made by me, Michael Sharp MD.
== END 2017-12-14 01:28 | disposition home or self-care (01) ==
LOC: ED 20:06
DX: M54.5 Low back pain (principal); R68.83 Chills (without fever); R20.2 Paresthesia of skin; R53.1 Weakness; Z32.02 Encounter for pregnancy test, result negative; F41.9 Anxiety disorder, unspecified; F32.9 Major depressive disorder, single episode, unspecified; Z88.6 Allergy status to analgesic agent; Z88.0 Allergy status to penicillin; F17.210 Nicotine dependence, cigarettes, uncomplicated
CPT/HCPCS: 36415; 72132; 80053; 83605; 84702; 85025; 85610; 85730; 86140; 86850; 86900; 86901; 87040; 96374; 96376; 99283; J1170; Q9967

== ENCOUNTER 2018-01-11 08:25 | Emergency (ER) | payer OTHER ==
[2018-01-11] MEDS ORDERED: LORazepam INJ* 2 MG/ML 1 ML VIAL IV PUSH ONE (08:44)
[2018-01-11] MEDS ORDERED: Methocarbamol* 100 MG/ML 10 ML VIAL IV ONE (08:44)
--- NOTE | 2018-01-11 08:54 | ED ---
Back Pain - HPI Summary HPI Summary: Patient is a 37-year-old female presenting to the ED [facility] with chief complaint of a burning sensation throughout her lower back which began this morning around 4:30 AM. Pain is a 10 out of 10. History of laminectomy, spinal leak and epidural abscess. She is seen by Dr. Beltran and has been seen by the pain clinic. Multiple trips to the ED for same. She states movement aggravates the pain, alleviated with nothing. She denies taking any pain medications, stating she is out of the pain medication given to her 3 weeks ago. She is requesting pain medication in the ED. Denies any fevers, sweats, chills. Denies any hematuria, cough, dysuria or other obstructive urinary symptoms. She has also been seen by Dr. Wick, infectious disease for an epidural abscess. PICC line was placed 4 weeks ago, she no longer has this. She denies any trauma. She states she is unable to walk or move. Vital signs are stable. - History of Current Complaint Chief Complaint: EDBackInjuryPain Stated Complaint: BACK PAIN Time Seen by Provider: 01/11/18 08:36 Hx Obtained From: Patient Onset/Duration: Sudden Onset Timing: Constant Back Pain Location: Is Discrete @ - low back - spinal area Severity Initially: Severe Severity Currently: Severe Pain Intensity: 9 Pain Scale Used: 0-10 Numeric Character: Aching, Throbbing, Burning Aggravating Symptom(s): Movement Alleviating Symptom(s): Nothing Associated Signs And Symptoms: Positive: Pain with Weight Bearing. Negative: Swelling, Redness, Bruising, Fever, Weakness, Numbness, Tingling, Abdominal Pain , Flank Pain, Bladder Incontinence, Bowel Incontinence, Weight Loss Related History: Previous Back Injury - spinal leak, laminectomy - Risk Factors AAA Risk Factors: Negative TAD Risk Factors: Negative Cauda Equina Risk Factors: Negative Epidural Abscess Risk Factors: Negative - Allergies/Home Medications Allergies/Adverse Reactions: Allergies Allergy/AdvReac Type Severity Reaction Status Date / Time aspirin Allergy Anaphylatic Verified 01/11/18 09:07 Shock Penicillins Allergy Anaphylatic Verified 01/11/18 09:07 Shock PMH/Surg Hx/FS Hx/Imm Hx Previously Healthy: Yes Endocrine/Hematology History: Denies: Hx Diabetes Cardiovascular History: Denies: Hx Coronary Artery Disease, Hx Hypertension, Hx Pacemaker/ICD Respiratory History: Reports: Other Respiratory Problems/Disorders - smoker History: Denies: Hx Renal Disease Musculoskeletal History: Reports: Other Musculoskeletal History - back pain Sensory History: Denies: Hx Contacts or Glasses, Hx Hearing Aid Opthamlomology History: Denies: Hx Contacts or Glasses Neurological History: Reports: Hx Headaches, Other Neuro Impairments/Disorders - CSF leak, bilateral leg numbess, epidural abscess Psychiatric History: Reports: Hx Anxiety - prn med, Hx Depression - prn med Denies: Hx Panic Disorder - Surgical History Surgery Procedure, Year, and Place: bilateral ear tubes placed as a child - [place]. [place] - 2006 [place]. tubal ligation - 2006 [place]. hysterectomy 2012 [place]. hernia repair 2014 - [place] Hx Anesthesia Reactions: No - Immunization History Date of Influenza Vaccine: Has not received Hx Pertussis Vaccination: No Immunizations Up to Date: Unable to Obtain/Confirm Infectious Disease History: No Infectious Disease History: Denies: Hx of Known/Suspected MRSA, Traveled Outside the [place] in Last 30 Days - Family History Known Family History: Positive: Hypertension, Other Family History: Lung CA, Alzheimer's, sleep apnea - Social History Occupation: Unemployed Lives: Alone Alcohol Use: None Hx Substance Use: Yes Substance Use Type: Reports: Marijuana Substance Use Comment - Amount & Last Used: reports as needed - last used Hx Tobacco Use: Yes Smoking Status (MU): Light Every Day Tobacco Smoker Type: Cigarettes Amount Used/How Often: reports down to 5-10 per day for approx 7 years Review of Systems Constitutional: Negative Negative: Fever, Chills, Fatigue, Skin Diaphoresis Negative: Photophobia, Blurred Vision Negative: Epistaxis, Dental Pain, Sore Throat, Ear Ache, Nasal Discharge Negative: Palpitations, Chest Pain Negative: Shortness Of Breath, Cough Negative: Abdominal Pain, Vomiting, Diarrhea, Nausea Genitourinary: Negative Positive: no symptoms reported, see HPI Positive: Arthralgia Skin: Negative Neurological: Negative Positive: Anxious All Other Systems Reviewed And Are Negative: Yes Physical Exam Triage Information Reviewed: Yes Vital Signs On Initial Exam: Initial Vitals Temp Pulse Resp BP Pulse Ox 98.7 F 77 20 120/87 98 01/11/18 08:27 01/11/18 08:27 01/11/18 08:27 01/11/18 08:27 01/11/18 08:27 Vital Signs Reviewed: Yes Appearance: Positive: Ill-Appearing, Pain Distress Skin: Positive: Skin Color Reflects Adequate Perfusion Head/Face: Positive: Normal Head/Face Inspection Eyes: Positive: CRYSTAL Neck: Positive: Supple, No Lymphadenopathy Respiratory/Lung Sounds: Positive: Clear to Auscultation, Breath Sounds Present Cardiovascular: Positive: RRR, Pulses are Symmetrical in both Upper and Lower Extremities Musculoskeletal: Positive: Pain @ - pain on palpation to the lumbar spine Neurological: Positive: Sensory/Motor Intact, Speech Normal Psychiatric: Positive: Anxious - inconsolable crying Diagnostics - Vital Signs Vital Signs Temp Pulse Resp BP Pulse Ox 01/11/18 08:27 98.7 F 77 20 120/87 98 - Laboratory Result Diagrams: 01/11/18 09:00 01/11/18 09:00 Lab Statement: Any lab studies that have been ordered have been reviewed, and results considered in the medical decision making process. Back Pain Course/Dx - Course Course Of Treatment: During the course of treatment, the patient is evaluated for low back pain, stating she feels exactly like it did previously when she had a CSF leak and needed IV pain medications and antibiotics. I have offered her blood work to assess CRP and sedimentation rate as well as any white count. I have deferred at this time for a CT scan as she has had multiple CT scans. She is also a frequent visitor to the ED for same complaint. She remains afebrile. There appears to be no fluid pockets to the spine. No definitive step-off. Scar tissue appears well healing. No fluid drainage from the previous incision. She has an appointment with Dr. Beltran in 2 weeks. She is not to see Dr. Wick again. Denies ESR 21, CRP 2.1. Discussed this case with Dr. Barrios as he has seen the patient most recently while in the ED. Patient also states she is out of her pain medication, although according to ISTOP, she should have 6 pills or 2 days left. I discussed with her that I am unable to further prescribe her pain medication d/t her non-compliance and disregard for medication dosing. I have offered her ibuprofen but she states this will not work for her pain. I have discussed this with Dr. Barrios who agrees to send her home without pain medication d/t the above and narcotic seeking behavior over her previous stays. - Diagnoses Provider Diagnoses: Chronic low back pain Images - Images Full Body (No Head): 1 - discrete pain to palpation/ well-healed scar Discharge - Sign-Out/Discharge Documenting (check all that apply): Discharge/Admit/Transfer - Discharge Plan Condition: Stable Disposition: HOME Referrals: Azul Greene MD [Primary Care Provider] - Additional Instructions: Please follow up with Dr. Beltran and your PCP Call today for an appt. Ibuprofen 600mg three times daily for any inflammation and discomfort Moist heat pad to the area. - Billing Disposition and Condition Condition: STABLE Disposition: HOME
[2018-01-11 09:07] LABS: ABS Basophils 0.1 10^3/ul (0-0.2); ABS Eosinophils 0.2 10^3/ul (0-0.6); ABS Lymphocytes 1.9 10^3/ul (1.0-4.8); ABS Monocytes 0.6 10^3/ul (0-0.8); ABS Neutrophils 4.2 10^3/ul (1.5-7.7); ABS Nucleated RBC 0 10^3/ul; Hematocrit 36 % (35-47); Hemoglobin 11.7 g/dl (12.0-16.0); Lymphocyte % 27.8 % (25-47); Mean Corpuscular HGB Conc 33 g/dl (31-36); Mean Corpuscular Hemoglobin 30 pg (27-31); Mean Corpuscular Volume 91 fL (80-97); Mean Platelet Volume 8.4 um3 (7.4-10.4); Nucleated Red Blood Cells % 0; Platelet Count 318 10^3/ul (150-450); Red Blood Count 3.96 10^6/ul (4.0-5.4); Red Cell Distribution Width 14 % (10.5-15)
[2018-01-11 09:27] LABS: EGFR Non-African American 98.5 (>60)
[2018-01-11 10:45] VITALS: BP 117/82
== END 2018-01-11 10:47 | disposition home or self-care (01) ==
LOC: ED 08:25
DX: M54.5 Low back pain (principal); G89.29 Other chronic pain; M54.9 Dorsalgia, unspecified; F17.210 Nicotine dependence, cigarettes, uncomplicated; F41.9 Anxiety disorder, unspecified
CPT/HCPCS: 36415; 80053; 85025; 85652; 86140; 96374; 96375; 99282; J2060; J2800

== ENCOUNTER 2018-01-18 08:07 | Emergency (ER) | payer OTHER ==
--- NOTE | 2018-01-18 08:54 | ED ---
Back Pain - HPI Summary HPI Summary: Patient here with acute on chronic back pain x 1.5 days. Associated sx of SIBLEY and posterior neck pain. Started last night - she reports the pain was so bad this morning that she dropped to her knees. She took her diazepam 5mg last night but has not taken any other medication yet today for pain as she reports the oxycodone, acetaminophen and ibuprofen and have done "nothing". She has a history of lumbar pain and had lumbar diskectomy surgery on 10/12/2017. Following this surgery with [place], she developed CSF leakage that required repair. Following her reoperation, she was found to have post-op infection w/ diskitis. She underwent additional surgery and IV anbx under the direction of Dr. Wick. She was admitted for pain control on 12/05/2017 [place] [facility] [place] as PO meds were not helping. Her admission on this date was uneventful for further pathology of her lumbar spine. She has had multiple CT scans throughout her care of the past 4 months. She reports the pain she has now feels the same as her abscess/leakage sx as she's having a burning and tight sensation across her lower back w/ SIBLEY. Denies any numbness tingling or weakness in her lower extremities and no change in bowel or bladder habits. Feels she may have some fever but she denies chills nausea vomiting diarrhea. No photophobia, tinnitus, dizziness, syncope. Moving her bowels well and denies dysuria, urinary frequency, urinary urgency, hematuria. She is well-known to the department for not only her back pathologies but also her drug-seeking behavior. She was last seen here in ED on January 11, 2018 for worsening of back pain. She was given NSAIDs and muscle relaxers as her I stop revealed she should still have had narcotic pain meds in her possession for use of her chronic back pain. Today, her ISTOP reveals the same - should have a three-day supply remaining for oxycodone 10mg although as above she reports this is not helping her pain. Patient reports she spoke with Dr. Aponte this morning on the phone who advised she come here for an MRI of her spine to assess for recurrence of infection or leakage. Pt continues to smoke. Feels her diet is adequate for calcium/Vit D intake. - History of Current Complaint Chief Complaint: EDBackInjuryPain Stated Complaint: BACK PAIN Time Seen by Provider: 01/18/18 08:28 Hx Obtained From: Patient Pain Intensity: 10 - Allergies/Home Medications Allergies/Adverse Reactions: Allergies Allergy/AdvReac Type Severity Reaction Status Date / Time aspirin Allergy Anaphylatic Verified 01/18/18 08:14 Shock Penicillins Allergy Anaphylatic Verified 01/18/18 08:14 Shock Home Medications: Home Medications oxyCODONE TAB* [Roxycodone TAB 5 mg*] 10 mg PO Q8H PRN 01/18/18 [History Confirmed 01/18/18] PMH/Surg Hx/FS Hx/Imm Hx Previously Healthy: Yes Endocrine/Hematology History: Denies: Hx Anticoagulant Therapy, Hx Blood Disorders, Hx Diabetes, Autoimmune Disease Cardiovascular History: Denies: Hx Coronary Artery Disease, Hx Hypertension, Hx Pacemaker/ICD Respiratory History: Reports: Other Respiratory Problems/Disorders - smoker History: Denies: Hx Renal Disease Musculoskeletal History: Reports: Hx Back Problems - h/o lumbar disckectomy, epidural abscess, CSF leak, poor pain control Sensory History: Denies: Hx Contacts or Glasses, Hx Hearing Aid Opthamlomology History: Denies: Hx Contacts or Glasses Neurological History: Reports: Hx Headaches, Other Neuro Impairments/Disorders - CSF leak, bilateral leg numbess, epidural abscess Psychiatric History: Reports: Hx Anxiety - prn med, Hx Depression - prn med, Other Psychiatric Issues/Disorders - narcotic dependence Denies: Hx Panic Disorder - Surgical History Surgery Procedure, Year, and Place: bilateral ear tubes placed as a child - [place]. D&C - 2006 [place]. tubal ligation - 2006 [place]. hysterectomy 2012. hernia repair 2014 - [place] Hx Anesthesia Reactions: No - Immunization History Date of Influenza Vaccine: Has not received Infectious Disease History: No Infectious Disease History: Denies: Hx of Known/Suspected MRSA, Traveled Outside the [place] in Last 30 Days - Family History Known Family History: Positive: Hypertension, Other Family History: Lung CA, Alzheimer's, sleep apnea - Social History Alcohol Use: None Hx Substance Use: Yes Substance Use Type: Reports: Marijuana, Prescribed - narcotics for back pain Hx Tobacco Use: Yes Smoking Status (MU): Current Every Day Smoker Type: Cigarettes Amount Used/How Often: reports down to 5-10 per day for approx 7 years Review of Systems Positive: Fever - mild. Negative: Chills, Fatigue Eyes: Negative ENT: Negative Cardiovascular: Negative Respiratory: Negative Gastrointestinal: Negative Genitourinary: Negative Positive: Arthralgia. Negative: Edema Skin: Negative Neurological: Negative Positive: Anxious All Other Systems Reviewed And Are Negative: Yes Physical Exam Triage Information Reviewed: Yes Vital Signs On Initial Exam: Initial Vitals Temp Pulse Resp BP Pulse Ox 98.4 F 91 18 118/94 100 01/18/18 08:09 01/18/18 08:09 01/18/18 08:09 01/18/18 08:09 01/18/18 08:09 Vital Signs Reviewed: Yes Appearance: Positive: Pain Distress - pt begins to whimper/moan upon entrance to room - eyes are closed and she is crying w/o tears throughout her explanation of pain, sx, hx. She does appear more relaxed at times and eyes open when she inquires what she will receive for pain. Skin: Positive: Warm, Skin Color Reflects Adequate Perfusion, Dry - Healed surgical scar over lower lumbar spine - no bogginess, no erythema - pt is TTP anywhere she is palpated over back side, surgical area, spinous pp, skin in general ENT: Positive: Hearing grossly normal, Pharynx normal - mucosa moist Respiratory/Lung Sounds: Positive: Breath Sounds Present Cardiovascular: Positive: Pulses are Symmetrical in both Upper and Lower Extremities. Negative: Leg Edema Left, Leg Edema Right Abdomen Description: Positive: Nontender, Soft Musculoskeletal: Positive: Strength/ROM Intact - pt reports pain in back w/ isometric ankle resistance Neurological: Positive: Normal, Sensory/Motor Intact, Alert, Oriented to Person Place, Time, CN Intact II-III Psychiatric: Positive: Anxious Diagnostics - Vital Signs Vital Signs Temp Pulse Resp BP Pulse Ox 01/18/18 08:09 98.4 F 91 18 118/94 100 - Laboratory Result Diagrams: 01/18/18 09:21 01/18/18 09:21 Lab Statement: Any lab studies that have been ordered have been reviewed, and results considered in the medical decision making process. Re-Evaluation - Re-Evaluation First Eval Change: Improved Back Pain Course/Dx - Course Course Of Treatment: Patient is here for return of acute on chronic lumbar pain. Her history is as as stated in history of present illness. Labs and imaging were ordered today to assess for infection/worsening pathology for lumbar spine. Her labs are negative for infection and inflammation. Her vitals are within normal limits. Her MRI reports "constellation of findings is consistent with persistent osteomyelitis discitis at L5-S1 with progression of the discitis component compared with November 18, 2017 MRI. The magnitude of epidural involvement appears decreased. No loculated epidural or paravertebral tissue abscess collection evident.". Discussed with Dr. Aponte as well as Dr. Wick. Both feel patient is safe to go home with pain control and no antibiotics but to keep her follow-up appointment on with Dr. Beltran. Danger signs and symptoms of when to return to the ED reviewed with patient. Patient is requesting Dilaudid for home use. Discussed this does not seem to be a step in the right direction for her healing process. She may increase her diazepam from 5 mg to 10 mg per dose as needed and will add a Lidoderm pain patch here today. She was also encouraged to reinitiate her NSAIDs at 800 mg per dose with food. She will discuss her progress with Dr. Beltran on and if further pain control as needed she may benefit from intervention from their office or possibly pain management. There is definitely a component of anxiety with patient's symptoms which is why we increased diazepam however this is not necessarily a good long-term approach. Would encourage patient to touch base with her PCP to further evaluate any mental health needs is unsure this is been a trying experience for her. - Diagnoses Provider Diagnoses: Lumbar pain Discharge - Sign-Out/Discharge Documenting (check all that apply): Discharge/Admit/Transfer - Discharge Plan Condition: Stable Disposition: HOME Prescriptions: Lidocaine PATCH 5%* [Lidoderm 5% Patch*] 1 patch TRANSDERM DAILY #30 patch Patient Education Materials: Chronic Back Pain (ED) Referrals: Azul Greene MD [Primary Care Provider] - William Beltran MD [Medical Doctor] - Additional Instructions: Your work-up here today is unremarkable for infection. It is advised that you may try increasing your valium (diazepam) from 5mg per dose to 10mg per dose - DO NOT EXCEED 30MG PER DAY. This works as a muscle relaxer as well as an anxiety medication. Given everything you have been through, it is recommended that you follow-up with your PCP to better manage your anxiety as diazepam is not a oysterman medication and your PCP may be able to transition you to another medication over time. Call today to schedule an appointment. Additionally for physical pain, a lidoderm patch was placed today. 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 You may also reinitiate your ibuprofen at 800 mg per dose every 8 hours with food. Keep your follow-up appointment on with Dr. Beltran. *If you develop numbness, tingling, weakness, change in bowel or bladder habits , return to the emergency department - Billing Disposition and Condition Condition: STABLE Disposition: HOME
[2018-01-18] MEDS ORDERED: Ketorolac INJ* 60 MG/2 ML VIAL IM ONE (09:20)
[2018-01-18] MEDS ORDERED: Diazepam TAB(*) 5 MG PO ONE (09:20)
[2018-01-18] MEDS ORDERED: HYDROmorphone TAB* 2 MG PO ONE (09:24)
[2018-01-18 09:43] LABS: ABS Basophils 0.1 10^3/ul (0-0.2); ABS Eosinophils 0.1 10^3/ul (0-0.6); ABS Lymphocytes 2.3 10^3/ul (1.0-4.8); ABS Monocytes 0.6 10^3/ul (0-0.8); ABS Neutrophils 4.2 10^3/ul (1.5-7.7); ABS Nucleated RBC 0 10^3/ul; Eosinophil % 0.9 % (0-6); Hematocrit 36 % (35-47); Hemoglobin 12.1 g/dl (12.0-16.0); Lymphocyte % 31.2 % (25-47); Mean Corpuscular HGB Conc 33 g/dl (31-36); Mean Corpuscular Hemoglobin 30 pg (27-31); Mean Corpuscular Volume 90 fL (80-97); Mean Platelet Volume 8.5 um3 (7.4-10.4); Nucleated Red Blood Cells % 0; Platelet Count 370 10^3/ul (150-450); Red Blood Count 4.04 10^6/ul (4.0-5.4); Red Cell Distribution Width 14 % (10.5-15); White Blood Count 7.2 10^3/ul (3.5-10.8)
[2018-01-18 09:51] LABS: EGFR Non-African American 92.2 (>60)
[2018-01-18] MEDS ORDERED: Gadoteridol* (CONTRAST) 279.3 MG/ML 10 ML IV ONE (10:27)
--- NOTE | 2018-01-18 10:57 | RAD ---
Indication: Lumbar pain, pressure. Headache. History of CSF leak and epidural abscess. Comparison: December 13, 2017 CT. November 18, 2017 MRI. Technique: Inn[employer] 1.5 Leah [id number] with GEM suite. Noncontrast and contrast-enhanced MRI lumbar sacral spine. 12 mL ProHance contrast administered IV. Report: Unremarkable conus medullaris and cauda equina. Diffuse bone marrow edema at the L5 and S1 vertebral bodies with sparing of the inferior endplate of S1 with corresponding loss of normal T1 marrow hyperintensity and positive enhancement on the postcontrast series. Extension of the infiltrative marrow process to the pedicles at both levels. Increased T2 signal and enhancement at the L5-S1 disc as well as interval further loss of intervertebral disc height. Postsurgical change of RIGHT unilateral partial L5-S1 laminectomy. On the postcontrast series there is mild epidural enhancing tissue at the level of the L5-S1 disc space at S1 vertebral body most confluent surrounding the traversing RIGHT S1 nerve root extending to the foramina at S1 and S2. The magnitude of epidural enhancing tissue is decreased compared with the November 18, 2017 MRI. No loculated epidural abscess collection evident. There is low signal circumferential thickening and enhancement of the anterior and bilateral lateral para vertebral body soft tissues without evidence for a loculated abscess collection. There is T2 hyperintense edema and corresponding enhancement involving the RIGHT greater than LEFT multifidus paraspinal muscle. No loculated abscess collection within the muscular compartment overlying subcutaneous fat evident. Dependent edema at the midline posterior subcutaneous tissue plane. Negative for fracture or spondylolysis at any level. Normal vertebral alignment accounting for exam positioning without spondylolisthesis or subluxation at any level. The T12 -- L1-L4 -- 5 disc levels are unremarkable. IMPRESSION: The constellation of findings is consistent with persistent osteomyelitis discitis at L5-S1 with progression of the discitis component compared with the November 18, 2017 MRI. The magnitude of epidural involvement appears decreased. No loculated epidural or paravertebral soft tissue abscess collection evident.
[2018-01-18 11:30] LABS: Urine Appearance Cloudy; Urine Blood 1+ (Negative); Urine Color Yellow; Urine Ketones Negative (Negative); Urine Protein Negative (Negative); Urine Urobilinogen Negative (Negative)
[2018-01-18 13:32] VITALS: BP 128/88
[2018-01-18] MEDS ORDERED: Lidocaine PATCH 5%* 1 PATCH TRANSDERM SCH (14:00)
--- NOTE | 2018-01-20 07:09 | PN ---
Progress Note - Progress Note Date of Service: 01/18/18 Note: Patient urine culture grew Escherichia coli> 100,000 Patient was asymptomatic when in the ED We will await culture and sensitivities prior to prescription
--- NOTE | 2018-01-21 10:43 | ED ---
Progress - Progress Note Progress Note: Patient's final urinary culture reveals greater than 100,000 Escherichia coli. Reviewed patient's chart and she did not have any urinary complaints during the day of her evaluation nor does she have any today after speaking with her. She' s had a urinary tract infection in the past and does not feel like she has one at this point in time. Her labs and vital signs were not remarkable for infection then and she continues to deny fever, dysuria, urinary frequency, pelvic discomfort, urinary urge, flank pain. She has an appointment this afternoon with her PCP and agrees to have a repeat urinalysis there will using the clean catch method to see if she has a chair UTI or if this was just a contaminated collection. Advised patient if she does develop symptoms to either inquire with PCP for treatment or call back for treatment through the emergency department. Patient agrees with plan. Re-Evaluation - Re-Evaluation First Eval Change: Improved Course/Dx - Course Course Of Treatment: Patient is here for return of acute on chronic lumbar pain. Her history is as as stated in history of present illness. Labs and imaging were ordered today to assess for infection/worsening pathology for lumbar spine. Her labs are negative for infection and inflammation. Her vitals are within normal limits. Her MRI reports "constellation of findings is consistent with persistent osteomyelitis discitis at L5-S1 with progression of the discitis component compared with November 18, 2017 MRI. The magnitude of epidural involvement appears decreased. No loculated epidural or paravertebral tissue abscess collection evident.". Discussed with Dr. Aponte as well as Dr. Wick. Both feel patient is safe to go home with pain control and no antibiotics but to keep her follow-up appointment on with Dr. Beltran. Danger signs and symptoms of when to return to the ED reviewed with patient. Patient is requesting Dilaudid for home use. Discussed this does not seem to be a step in the right direction for her healing process. She may increase her diazepam from 5 mg to 10 mg per dose as needed and will add a Lidoderm pain patch here today. She was also encouraged to reinitiate her NSAIDs at 800 mg per dose with food. She will discuss her progress with Dr. Beltran on and if further pain control as needed she may benefit from intervention from their office or possibly pain management. There is definitely a component of anxiety with patient's symptoms which is why we increased diazepam however this is not necessarily a good long-term approach. Would encourage patient to touch base with her PCP to further evaluate any mental health needs is unsure this is been a trying experience for her. - Diagnoses Provider Diagnoses: Lumbar pain Discharge - Sign-Out/Discharge Documenting (check all that apply): Post-Discharge Follow Up - Discharge Plan Condition: Stable Disposition: HOME Prescriptions: Lidocaine PATCH 5%* [Lidoderm 5% Patch*] 1 patch TRANSDERM DAILY #30 patch Patient Education Materials: Chronic Back Pain (ED) Referrals: William Beltran MD [Medical Doctor] - Azul Greene MD [Primary Care Provider] - Additional Instructions: Your work-up here today is unremarkable for infection. It is advised that you may try increasing your valium (diazepam) from 5mg per dose to 10mg per dose - DO NOT EXCEED 30MG PER DAY. This works as a muscle relaxer as well as an anxiety medication. Given everything you have been through, it is recommended that you follow-up with your PCP to better manage your anxiety as diazepam is not a loss mitigation specialist medication and your PCP may be able to transition you to another medication over time. Call today to schedule an appointment. Additionally for physical pain, a lidoderm patch was placed today. If you found this helpful, you may machine pecan picker more at your pharmacy as they have been sent today. You may also reinitiate your ibuprofen at 800 mg per dose every 8 hours with food. Keep your follow-up appointment on with Dr. Beltran. *If you develop numbness, tingling, weakness, change in bowel or bladder habits , return to the emergency department - Billing Disposition and Condition Condition: STABLE Disposition: HOME
== END 2018-01-18 13:31 | disposition home or self-care (01) ==
LOC: ED 08:07
DX: M54.5 Low back pain (principal); F17.210 Nicotine dependence, cigarettes, uncomplicated
CPT/HCPCS: 36415; 72158; 80053; 81003; 81015; 83605; 85025; 85652; 86140; 87040; 87077; 87086; 87186; 96372; 96374; 99282; A9270-GY; A9579; J1885

== ENCOUNTER 2018-06-07 13:34 | Emergency (ER) | payer OTHER ==
--- NOTE | 2018-06-07 13:52 | ED ---
Adult Trauma - HPI Summary HPI Summary: This patient is a 38 year old F BIBA to [facility] with a chief complaint of headache , neck and back pain s/p fall down the stairs prior to arrival. Patient states she was walking up the stairs when she felt shooting back pain that caused her to lose her footing and fall backwards on to her right ribs and occiput. Patient now reports headache, neck pain, back pain, right rib pain, and right hip pain. Patient has multiple previous herniated disc surgeries to the low back with Dr. Izquierdo. Last surgery in October 2017, per patient. Denies LOC. - History of Current Complaint Stated Complaint: FALL/BACK PAIN Time Seen by Provider: 06/07/18 13:37 Hx Obtained From: Patient Mechanism of Injury: Fall Ambulatory at the Scene: No Loss of Consciousness: no loss of consciousness Onset/Duration: Still Present Onset of Pain: Immediate Location: Head, Neck, Back, Other - right rib, right hip - Additional Pertinent History Primary Care Physician: TUCKER - Allergy/Home Medications Allergies/Adverse Reactions: Allergies Allergy/AdvReac Type Severity Reaction Status Date / Time aspirin Allergy Anaphylatic Verified 01/18/18 08:14 Shock Penicillins Allergy Anaphylatic Verified 01/18/18 08:14 Shock PMH/Surg Hx/FS Hx/Imm Hx Endocrine/Hematology History: Denies: Hx Anticoagulant Therapy, Hx Blood Disorders, Hx Diabetes Cardiovascular History: Denies: Hx Coronary Artery Disease, Hx Hypertension, Hx Pacemaker/ICD Respiratory History: Reports: Other Respiratory Problems/Disorders - smoker History: Denies: Hx Renal Disease Musculoskeletal History: Reports: Hx Back Problems - h/o lumbar disckectomy, epidural abscess, CSF leak, poor pain control, Other Musculoskeletal History - back pain Sensory History: Denies: Hx Contacts or Glasses, Hx Hearing Aid Opthamlomology History: Denies: Hx Contacts or Glasses Neurological History: Reports: Hx Headaches, Other Neuro Impairments/Disorders - CSF leak, bilateral leg numbess, epidural abscess Psychiatric History: Reports: Hx Anxiety - prn med, Hx Depression - prn med, Other Psychiatric Issues/Disorders - narcotic dependence Denies: Hx Panic Disorder - Surgical History Surgery Procedure, Year, and Place: bilateral ear tubes placed as a child - [place] - 2006 [place]. tubal ligation - 2006 [place]. hysterectomy 2013 [place] hernia repair 2014 - [place] Hx Anesthesia Reactions: No - Immunization History Date of Influenza Vaccine: Has not received Infectious Disease History: Denies: Hx of Known/Suspected MRSA - Family History Known Family History: Positive: Hypertension, Other Family History: Lung CA, Alzheimer's, sleep apnea - Social History Alcohol Use: None Hx Substance Use: Yes Substance Use Type: Reports: Marijuana, Prescribed - narcotics for back pain Substance Use Comment - Amount & Last Used: reports as needed - last used Hx Tobacco Use: Yes Smoking Status (MU): Current Every Day Smoker Type: Cigarettes Amount Used/How Often: reports down to 5-10 per day for approx 7 years Review of Systems Positive: Myalgia - back pain, neck pain, right rib, right hip Positive: Headache. Negative: Syncope All Other Systems Reviewed And Are Negative: Yes Physical Exam - Summary Physical Exam Summary: Appearance: The patient is well-nourished in no acute distress and in no acute pain. Skin: The skin is warm and dry and skin color reflects adequate perfusion. HEENT: The head is normocephalic and atraumatic. The pupils are equal and reactive. The conjunctivae are clear and without drainage. Nares are patent and without drainage. Mouth reveals moist mucous membranes and the throat is without erythema and exudate. The external ears are intact. The ear canals are patent and without drainage. The tympanic membranes are intact. Neck: The neck is supple with full range of motion and non-tender. There are no carotid bruits. There is no neck vein distension. Respiratory: Chest is non-tender. Lungs are clear to auscultation and breath sounds are symmetrical and equal. Cardiovascular: Heart is regular rate and rhythm. There is no murmur or rub auscultated. There is no peripheral edema and pulses are symmetrical and equal. Abdomen: The abdomen is soft with RUQ tenderness. There are normal bowel sounds heard in all four quadrants and there is no organomegaly palpated. Musculoskeletal: Midline cervical tenderness. Tenderness to right lateral chest wall. Tender to pelvic compressions. There is good capillary refill. There is no peripheral edema or calf tenderness elicited. Neurological: Patient is alert and oriented to person, place and time. The patient has symmetrical motor strength in all four extremities. Cranial nerves are grossly intact. Deep tendon reflexes are symmetrical and equal in all four extremities. Psychiatric: The patient has an appropriate affect and does not exhibit any anxiety or depression. Triage Information Reviewed: Yes Vital Signs Reviewed: Yes Diagnostics - Laboratory Result Diagrams: 06/07/18 14:23 06/07/18 14:23 Lab Statement: Any lab studies that have been ordered have been reviewed, and results considered in the medical decision making process. Adult Trauma Course/Dx - Course Course Of Treatment: Ms. Villarreal has had a lot of problems with her low back and been on chronic opiates. These were stopped back in December after she had surgery and she's been doing well. Today she was walking up some stairs and she had a sudden pain in her low back which caused her to fall down the stairs sustaining injuries to the right side of her chest and her neck and aggravating the pain in her low back. Her vitals were stable here in the emergency department and she underwent CT scans here. No acute fracture was found and she was treated symptomatically with opiate pain medication and benzodiazepine for muscle relaxers. She did improve some and will be given a prescription for Percocet and recommended follow-up - Diagnoses Provider Diagnoses: Cervical strain, Chest wall contusion Discharge - Sign-Out/Discharge Documenting (check all that apply): Patient Departure - Discharge Plan Condition: Stable Disposition: HOME Prescriptions: oxyCODONE/Acetamin 5/325 MG* [Percocet 5/325 TAB*] 1 tab PO Q6H PRN #20 tab MDD 4 PRN Reason: Pain Patient Education Materials: Cervical Strain (ED) Referrals: Azul Greene MD [Medical Doctor] - Additional Instructions: Follow up with primary care physician in 2-3 days. Return to the emergency department with any new or worsening symptoms. - Billing Disposition and Condition Condition: STABLE Disposition: Home - Attestation Statements Document Initiated by Scribe: Yes Documenting Scribe: Pauline Rubio Provider For Whom Kayyibolu is Documenting (Include Credential): Brendan Lennon MD Scribe Attestation: Pauline Canales, scribed for Brendan Lennon MD on 06/07/18 at 2135. Scribe Documentation Reviewed: Yes Provider Attestation: The documentation as recorded by the Pauline guillermo accurately reflects the service I personally performed and the decisions made by me, Brendan Lennon MD
[2018-06-07] MEDS ORDERED: Ondansetron INJ* 2 MG/ML VIAL IV ONE (14:24)
[2018-06-07] MEDS ORDERED: HYDROmorphone INJ* 1 MG/ML CARPUJECT SYRINGE IV ONE (14:24)
[2018-06-07 14:30] LABS: ABS Basophils 0.1 10^3/ul (0-0.2); ABS Eosinophils 0.1 10^3/ul (0-0.6); ABS Lymphocytes 1.8 10^3/ul (1.0-4.8); ABS Monocytes 0.7 10^3/ul (0-0.8); ABS Neutrophils 6.2 10^3/ul (1.5-7.7); ABS Nucleated RBC 0 10^3/ul; Eosinophil % 1.6 % (0-6); Hematocrit 38 % (35-47); Hemoglobin 12.9 g/dl (12.0-16.0); Lymphocyte % 19.8 % (25-47); Mean Corpuscular HGB Conc 34 g/dl (31-36); Mean Corpuscular Hemoglobin 31 pg (27-31); Mean Corpuscular Volume 90 fL (80-97); Mean Platelet Volume 8.3 um3 (7.4-10.4); Nucleated Red Blood Cells % 0.1; Platelet Count 328 10^3/ul (150-450); Red Blood Count 4.23 10^6/ul (4.00-5.40); Red Cell Distribution Width 13 % (10.5-15); White Blood Count 8.8 10^3/ul (3.5-10.8)
[2018-06-07] MEDS ORDERED: HYDROmorphone INJ1* 1 MG/ML SYRINGE ONE (14:34)
[2018-06-07] MEDS ORDERED: HYDROmorphone INJ1* 1 MG/ML SYRINGE IV SLOW PU ONE (14:41)
--- OUTSIDE RECORDS SUMMARY | 2018-06-07 14:50 | XMS REPORT | Continuity of Care Document ---
:1980 Author Organization [facility] Support Name Relationship Address Phone MANDEEP CALI father [address] [place] [address] Allergies and Intolerances Code Code Allergy Type Reaction Severity Start End Status System Substance Date Date 1191 RXNorm Aspirin Drug allergy Shortness Severe Active (disorder) of breath 7986 RXNorm Penicillins Drug allergy Shortness Severe Active (disorder) of breath 267557 RXNorm Dilaudid Propensity to itching Moderate 02/24/ adverse 2018 reactions to drug (disorder) Medications RxNorm Medication Dose Route Instructions Start Date End Date Status 762697 Acetaminophen 325 1 tab oral orally every 6 05/24/2018 Active MG / Hydrocodone hours as needed. Bitartrate 5 MG Oral Tablet Amoxicillin Oral 500 mg oral orally 3 times Active per day (10 days) 19740927 Clindamycin 150 MG 150 mg oral orally 3 times Active Oral Capsule per day (10 days) 8516042 Acetaminophen 325 1-2 tab oral orally every 6 03/09/2018 Completed MG / Oxycodone hours as needed. Hydrochloride 5 MG (; MDD=4 tablets) Oral Tablet 596 Alprazolam 0.5 mg oral orally 3 times Completed per day as needed. Docusate Sodium 100 mg oral orally 2 times Completed Oral per day (15 days) 19760126 Estradiol 1 MG 1 mg oral orally every Completed Oral Tablet morning Problems Code Code System Problem Name Start Date End Date Status 593602006 SNOMED-CT Backache 02/24/2018 Active 809415815 SNOMED-CT Viral syndrome U Active 09961629 SNOMED-CT Migraine U Active 93533800 SNOMED-CT Depressive disorder U Active UTERINE CANCER U Active 0804847 SNOMED-CT Gastritis U Active 224776741 SNOMED-CT Easy bruising U Active back surgery x3 Active Procedures Code Code System Procedure Date 029841724 SNOMED CT Hysterectomy 12/2013 NOVASURE PROCEDURE 2012 TUBAL LIGATION U Results Laboratory Results Order: CBC DIFF Specimen Source: Body Site : Legend: (G,H)=High, (GG,HH,CH,#H)=Above High Threshold, (#,L)=Low, (##,CL,#L, LL)=Below Low Threshold, (C,CC,CA,#A,A)=Abnormal LOINC Test Result Flag Range Units Date 6690-2 1WBC # Bld Auto 7.8 4.8-10.8 K/uL 05/24/2018 22:05 36108-4 1RBC # Bld 4.25 4.20-5.40 M/uL 05/24/2018 22:05 718-7 1Hgb Bld-mCnc 13.1 12.0-16.0 gm/dL 05/24/2018 22:05 4544-3 1Hct VFr Bld Auto 38.5 36.0-48.0 % 05/24/2018 22:05 787-2 1MCV RBC Auto 90.6 80.0-100.0 fL 05/24/2018 22:05 14655-8 1MCHC RBC-mCnc 34.0 30.0-36.5 % 05/24/2018 22:05 39418-5 1MCH RBC Qn 30.8 27.0-34.0 pg 05/24/2018 22:05 45902-9 1RDW RBC 12.1 11.0-15.0 % 05/24/2018 22:05 777-3 1Platelet # Bld Auto 342 130-450 K/uL 05/24/2018 22:05 10570-2 1PMV Bld Auto 8.0 6.0-12.0 fL 05/24/2018 22:05 751-8 1Neutrophils # Bld Auto 47 37-80 % 05/24/2018 22:05 63818-6 1Lymphocytes NFr Bld 42 10-50 % 05/24/2018 22:05 5905-5 1Monocytes NFr Bld Auto 9 0-12 % 05/24/2018 22:05 22423-7 1Eosinophil # Bld 2 <=8 % 05/24/2018 22:05 704-7 1Basophils # Bld Auto 1 <=3 % 05/24/2018 22:05 06426-7 1Neutrophils # Bld 3.6 1.8-8.6 K/uL 05/24/2018 22:05 731-0 1Lymphocytes # Bld Auto 3.2 0.5-5.0 K/uL 05/24/2018 22:05 742-7 1Monocytes # Bld Auto 0.7 0.0-1.3 K/uL 05/24/2018 22:05 96052-4 1Eosinophil # Bld 0.1 0.0-0.9 K/uL 05/24/2018 22:05 704-7 1Basophils # Bld Auto 0.1 0.0-0.3 K/ul 05/24/2018 22:05 Performing Lab Footnotes:[facility] [place] [facility] - [id number] - [address] [place] [address] MANDEEP Parson IRINAOMD1 Order: COMPREHENSIVE PANEL Specimen Source: Body Site: Legend: (G,H)= High, (GG,HH,CH,#H)=Above High Threshold, (#,L)=Low, (##,CL,#L,LL)=Below Low Threshold, (C,CC,CA,#A,A)=Abnormal LOINC Test Result Flag Range Units Date 2950- 1Sodium SerPl-sCnc 140 136-145 mmol/L 05/24/2018 22:05 2823-3 1Potassium SerPl-sCnc 3.7 3.5-5.2 mmol/L 05/24/2018 22:05 5-0 1Chloride SerPl-sCnc 107 100-108 mmol/L 05/24/2018 22:05 8-9 1CO2 SerPl-sCnc 23 21-32 mmol/L 05/24/2018 22:05 2345-7 1Glucose SerPl-mCnc 89 70-100 mg/dL 05/24/2018 22:05 3094-0 1BUN SerPl-mCnc 13 7-21 mg/dL 05/24/2018 22:05 2160-0 1Creat SerPl-mCnc 0.8 0.6-1.3 mg/dL 05/24/2018 22:05 Interpretive Bernice: 1Normal Kidney Function or Mild Disease - GFR >OR=60 Chronic Kidney Disease - GFR 15-59 Renal Failure - GFR < 15 GFR not calculated on patients under 18 years of age. Calculated (estimated) GFR is based on the MDRD Study equation, which assumes a steady state for creatinine. Estimated GFR may not be appropriate for medication dosing. 32249-0 1Ca-I SerPl-mCnc 9.9 8.5-10.8 mg/dL 05/24/2018 22:05 50082-1 1GFR/BSA.pred SerPl-ArVRat >60 05/24/2018 22:05 04373-8 1Bilirub Bld-mCnc 0.6 0.0-1.2 mg/dL 05/24/2018 22:05 2885-2 1Prot SerPl-mCnc 7.5 6.4-8.2 gm/dL 05/24/2018 22:05 1751-7 1Albumin SerPl-mCnc 4.4 3.4-4.8 gm/dL 05/24/2018 22:05 6768-6 1ALP SerPl-cCnc 63 40-150 U/L 05/24/2018 22:05 1742-6 1ALT SerPl-cCnc 11 0-55 U/L 05/24/2018 22:05 1920-8 1AST SerPl-cCnc 18 5-37 U/L 05/24/2018 22:05 Performing Lab Footnotes:[facility] [place] [facility] - [id number] - [address] [place] [address] MANDEEP CHATTERJEE Radiology Results Order: RIBS, BILATERAL, 3 VIEWSExam Completion Date:05/24/2018 20:4805/24/2018 9:36 PM RIBS, BILATERAL, 3 VIEWS INDICATION: Injury. Study: Frontal and oblique views of the thorax. COMPARISON: Chest from 03/06/2017. Findings/impression: Nondisplaced right ninth rib fracture without associated pleural thickening, pleural effusion, pneumothorax, or parenchymal opacification. The cardiomediastinal silhouette is unchanged from before. Stigma of prior cholecystectomy. Electronically signed By: Nick Garcia M.D. Read By: NICK GARCIA Date: 2017 21:42 Social History Code Code System Social History Observation Description Dates Observed 9927353 SNOMED CT Current Smoking Status Former smoker UNK AdministrativeGender Sex Assigned At Unknown Vital Signs Code Code System Vitals Value Date 8310-5 LOINC Body Temperature 98.5 [degF] 05/24/2018 8865-8 LOINC Pulse Rate 86 {beats}/min 05/24/2018 9279-1 LOINC Respiratory Rate 20 /min 05/24/2018 33298-3 LOINC O2% BldC Oximetry 99 % 05/24/2018 8480-6 LOINC BP Systolic 134 mm[Hg] 05/24/2018 8462-4 LOINC BP Diastolic 87 mm[Hg] 05/24/2018 8302-2 LOINC Height 59.5 [in_i] 05/24/2018 69795-3 LOINC Weight 53 kg 05/24/2018 3140-1 LOINC Body surface area Derived from formula 1.48 m2 05/24/2018 16121-5 LOINC BMI (Body Mass Index) 23.2 kg/m2 05/24/2018 Goals Section No data in the system Health Concerns No data in the systemEncounter Diagnosis Date Code Code System Diagnosis Status K08.89 ICD10 OTH SPEC DISORDERS TEETH SUPP STRCT Active Advance Directives PT STATES NO ADVANCE DIRECTIVES Directive Type Effective Date Aluminizer Notes Supporting Document Name Address Phone No Directive Type 03/09/2018 6:22:32 Not Specified Not Specified Not Specified None No specified PM *RHIO - CONSENT IS YES Directive Type Effective Date Aluminizer Notes Supporting Document Name Address Phone No Directive Type 11/03/2011 7:45:41 Not Specified Not Specified Not Specified None No specified AM Family History Relationship: Maternal Grandmother () Health Problem Age At Onset Notes Breast Ca (Carcinoma of breast) NATURAL CAUSES Functional Status Code Functional Condition Code System Date Status Independent adls [facility] 05/24/2018 Active Immunizations Vaccine Code Code System Vaccine Name Date Status UTD Completed 115 CVX tetanus toxoid, reduced diphtheria 05/01/2016 Completed toxoid, and acellular pertussis vaccine, adsorbed Medical Equipment No data in the system Mental Status Code Cognitive Condition Code System Date Status Perrl SNOMED CT 05/24/2018 Active Oriented x [address] 05/24/2018 Active Moderate distress SNOMED CT 05/24/[address] 05/24/2018 Active Assessment and Plan Assessments No data in the systemPlan Of Treatment No data in the systemPending Tests No data in the system Hospital Discharge Instructions No data in the system Reason for Visit Reason for Visit Rib Pain R
[2018-06-07 14:51] LABS: EGFR Non-African American 86.1 (>60)
[2018-06-07] MEDS ORDERED: Iohexol 300* (CONTRAST) 10 ML SDV IV ONE (15:33)
--- NOTE | 2018-06-07 16:03 | RAD ---
HISTORY: trauma COMPARISONS: None TECHNIQUE: Multiple contiguous axial CT scans were obtained of the head without intravenous contrast. FINDINGS: HEMORRHAGE/INFARCT: There is no hemorrhage or acute infarct. MASSES/SHIFT: There is no mass or shift. EXTRA-AXIAL SPACES: There are no extra-axial fluid collections. SULCI AND VENTRICLES: The sulci and ventricles are normal in size and position for the patient's stated age. CEREBRUM: There is a small focus of decreased attenuation within the right frontal subcortical white matter BRAINSTEM: There are no focal parenchymal abnormalities. CEREBELLUM: There are no focal parenchymal abnormalities. VESSELS: The vessels are grossly normal. PARANASAL SINUSES: The paranasal sinuses are clear. ORBITS: The orbits are unremarkable. BONES AND SOFT TISSUE: No bone or soft tissue abnormalities are noted. OTHER: None IMPRESSION: SMALL FOCUS OF GLIOSIS OF THE RIGHT FRONTAL SUBCORTICAL WHITE MATTER. RECOMMEND CONSIDERATION OF CORRELATION WITH CONTRAST-ENHANCED MRI OF THE BRAIN IN THE NONACUTE SETTING. NO ACUTE INTRACRANIAL PATHOLOGY.
--- NOTE | 2018-06-07 16:16 | RAD ---
INDICATION: RIGHT neck pain post fall. COMPARISON: No relevant prior exams available on the [facility] for comparison. TECHNIQUE: Multidetector CT images foramen magnum to lung apices without contrast. Multiplanar reformation. REPORT: Normal vertebral alignment accounting for exam positioning without spondylolisthesis or subluxation at any level. Negative for cervical vertebral body or posterior element fracture. Negative for paravertebral hematoma. IMPRESSION: #. No CT evidence for traumatic cervical spine injury.
--- NOTE | 2018-06-07 16:17 | ED ---
Progress - Results/Orders Results/Orders: CT Brain Interpreted by radiologist. IMPRESSION: SMALL FOCUS OF GLIOSIS OF THE RIGHT FRONTAL SUBCORTICAL WHITE MATTER. RECOMMEND CONSIDERATION OF CORRELATION WITH CONTRAST-ENHANCED MRI OF THE BRAIN IN THE NONACUTE SETTING. NO ACUTE INTRACRANIAL PATHOLOGY. Dr. Lennon has reviewed this report. CT Cervical Spine Interpreted by radiologist. IMPRESSION: No CT evidence for traumatic cervical spine injury. Dr. Lennon has reviewed this report. CT Abdomen/Pelvis Interpreted by radiologist. IMPRESSION: NO ACUTE CT PATHOLOGY OF THE VISUALIZED CHEST, ABDOMEN, OR PELVIS. Dr. Lennon has reviewed this report. CT Lumbar Spine Interpreted by radiologist IMPRESSION: 1. No acute fracture. 2. Chronic endplate erosive changes at L5-S1, with interval healing/sclerosis since prior CT lumbar spine from 12/13/2017, compatible with history of prior osteomyelitis/discitis. 3. Other chronic findings, as above. Dr. Lennon has reviewed this report. Re-Evaluation - Re-Evaluation 1st re-eval Re-Evaluation Time: 19:03 Change: Improved Comment: discussed imaging results with patient Course/Dx - Diagnoses Provider Diagnoses: Cervical strain, Chest wall contusion Discharge - Sign-Out/Discharge Documenting (check all that apply): Patient Departure - discharge - Discharge Plan Condition: Stable Disposition: HOME Patient Education Materials: Cervical Strain (ED) Referrals: Azul Greene MD [Medical Doctor] - Additional Instructions: Follow up with primary care physician in 2-3 days. Return to the emergency department with any new or worsening symptoms. - Attestation Statements Document Initiated by Scribe: Yes Documenting Scribe: Jeny Valdez Provider For Whom Scribe is Documenting (Include Credential): Brendan Lennon MD Scribe Attestation: Jeny Canales, scribed for Brendan Lennon MD on 06/07/18 at 1903.
--- NOTE | 2018-06-07 16:32 | RAD ---
HISTORY: trauma COMPARISONS: CT of the abdomen and pelvis dated December 05, 2017, CT of the lumbar spine dated December 13, 2017 TECHNIQUE: Multiple contiguous axial CT scans were obtained of the chest, abdomen, and pelvis after the administration of intravenous contrast. Coronal and sagittal multiplanar reformations are submitted for review.. Oral contrast was not administered. Delayed images were obtained through the abdomen and pelvis. FINDINGS: CHEST NECK AND THYROID: The lower neck and thyroid are unremarkable. CHEST WALL: There is no lower cervical, axillary, or supraclavicular lymphadenopathy by size criteria. HEART AND PERICARDIUM: The heart is unremarkable. AORTA AND PULMONARY VASCULATURE: The aorta and pulmonary vasculature are normal. MEDIASTINUM: There is no mediastinal lymphadenopathy by size criteria. PRASANNA: There is no hilar lymphadenopathy by size criteria. AIRWAY AND ESOPHAGUS: The airway is unremarkable, without endobronchial filling defect. The esophagus is grossly normal. LUNG PARENCHYMA: The lungs are clear. PLEURA: No pleural abnormalities are noted. BONES AND SOFT TISSUES: No bone or soft tissue abnormalities are noted. ABDOMEN/PELVIS: LIVER: The liver is normal in shape, size, contour, and attenuation. BILE DUCTS: There is no intrahepatic or extrahepatic biliary dilatation. GALLBLADDER: The gallbladder is not visualized. Surgical clips are noted in the gallbladder fossa. PANCREAS: The pancreas is normal, without mass or ductal dilatation. SPLEEN: Normal in size and appearance. UPPER GI TRACT: Evaluation of the gastrointestinal tract is limited by incomplete gastric distention. The upper GI tract is unremarkable. SMALL BOWEL & MESENTERY: The small bowel is normal in contour, course, and caliber. There is no obstruction or dilatation. COLON: The colon is normal in contour, course, caliber. There is no pericolonic inflammatory change. ADRENALS: Normal bilaterally. KIDNEYS: The kidneys are normal in shape, size, contour, and axis. There is no hydronephrosis or nephrolithiasis. BLADDER: The bladder is smooth in contour. PELVIC ORGANS: The pelvic organs are not visualized. AORTA: The aorta is normal. IVC: Unremarkable LYMPH NODES: There is no lymphadenopathy by size criteria. ABDOMINAL WALL: There is no evidence for abdominal wall hernia. BONES AND SOFT TISSUES: Again noted are erosive changes of the L5-S1 intervertebral disc space. This is improved from the previous examination with sclerosis along the margins of the erosive changes suggestive of healing response. OTHER: None IMPRESSION: NO ACUTE CT PATHOLOGY OF THE VISUALIZED CHEST, ABDOMEN, OR PELVIS.
[2018-06-07] MEDS ORDERED: LORazepam INJ* 2 MG/ML 1 ML VIAL IV ONE (17:22)
--- NOTE | 2018-06-07 18:22 | RAD ---
EXAM: CT Lumbar Spine Without Intravenous Contrast CLINICAL HISTORY: 38 years old, female; Pain; Low back pain; Patient HX: Right sided body/back pain. Fall down steps; Additional info: Trauma TECHNIQUE: Axial computed tomography images of the lumbar spine without intravenous contrast. All CT scans at this facility use at least one of these dose optimization techniques: automated exposure control; mA and/or kV adjustment per patient size (includes targeted exams where dose is matched to clinical indication); or iterative reconstruction. Coronal and sagittal reformatted images were created and reviewed. COMPARISON: SP L W CT SPINE LUMBAR W 12/13/2017 11:34 PM FINDINGS: Vertebrae: Chronic endplate erosive changes at L5-S1, with interval healing/sclerosis since prior CT lumbar spine from 12/13/2017. Remaining disc space heights are intact. Chronic postoperative changes compatible with posterior decompression at S1-S2. Lumbar vertebral body heights are intact. Discs/spinal canal/neural foramina: See above. Soft tissues: Unremarkable. Gallbladder and bile ducts: Status post cholecystectomy. Kidneys and ureters: 0.6 cm fluid density cyst in the mid left kidney. Appendix: Status post appendectomy. IMPRESSION: 1. No acute fracture. 2. Chronic endplate erosive changes at L5-S1, with interval healing/sclerosis since prior CT lumbar spine from 12/13/2017, compatible with history of prior osteomyelitis/discitis. 3. Other chronic findings, as above.
[2018-06-07] MEDS ORDERED: oxyCODONE/Acetamin 5/325 MG* TAB PO ONE (19:11)
[2018-06-07] MEDS ORDERED: oxyCODONE/Acetamin 5/325 MG* TAB ONE (19:24)
[2018-06-07 19:40] VITALS: BP 141/97
== END 2018-06-07 19:40 | disposition home or self-care (01) ==
LOC: ED 13:34
DX: S16.1XXA Strain of muscle, fascia and tendon at neck level, initial encounter (principal); S20.219A Contusion of unspecified front wall of thorax, initial encounter; W10.9XXA Fall (on) (from) unspecified stairs and steps, initial encounter; Y92.9 Unspecified place or not applicable; R51 Headache; Z88.0 Allergy status to penicillin; F17.210 Nicotine dependence, cigarettes, uncomplicated
CPT/HCPCS: 36415; 70450; 71260; 72125; 72131; 74177; 80053; 84702; 85025; 86850; 86900; 86901; 96374; 96375; 99283; A9270-GY; J1170; J2060; J2405; Q9967

== ENCOUNTER 2019-05-26 19:36 | Emergency (ER) | payer OTHER ==
--- OUTSIDE RECORDS SUMMARY | 2019-05-26 19:55 | XMS REPORT | Continuity of Care Document ---
:1980 External Reference #:[id number] Author Name Jayashree Small M.D. Address [address], [address] [place] [address] Problems Active Problems Provider Date High risk sexual behavior Rosalind Maki CNM Onset: 08/25/2011 Anxiety state Azul Greene M.D. Onset: 01/20/2017 Low back pain Azul Greene M.D. Onset: 01/20/2017 Mild recurrent major depression Azul Greene M.D. Onset: 01/20/2017 Headache William Beltran MD Onset: 08/25/2018 Social History Type Date Description Comments Sex Unknown Tobacco Use Start: Unknown Patient is a current cigarette smoker, smokes some days Tobacco Use Start: Unknown Light tobacco smoker (10 or fewer cigarettes/day) Smoking Status Reviewed: 11/08/17 Light tobacco smoker (10 or fewer cigarettes/day) ETOH Use Denies alcohol use Recreational Drug Use Denies Drug Use Tobacco Use Start: Unknown Patient is a current smoker, 1-2 /week smokes some days Recreational Drug Use Sporadically uses Marijuana Exercise Type/Frequency Does not exercise Tattoo/Piercing Tattoo ankle Allergies, Adverse Reactions, Alerts Active Allergies Reaction Severity Comments Date Penicillin hives 07/16/2009 Aspirin hives SOB 07/16/2009 Escitalopram shaking/nausea/"crazier" 01/05/2018 Medications Active Medications SIG Qnty Indications Ordering Provider Date Estradiol 1 by mouth every 30tabs N95.1 Henrique Banda, 12/22/2016 1mg Tablets day Xanakimberly take one tablet Unknown 0.25mg Tablets by mouth three times a day as needed (maximum daily dose 3 tablets) mdd 3 Immunizations Description No Information Available Vital Signs Date Vital Result Comment 05/11/2019 9:13am Weight 112.00 lb Weight 50.803 kg BMI (Body Mass Index) 21.9 kg/m2 Heart Rate 91 /min Body Temperature 98.1 F Respiratory Rate 14 /min Pain Level 10 Height 60 inches 5'0" Height in cm's 152.4 cm O2 % BldC Oximetry 97 % 11/24/2018 10:41am BP Systolic 141 mmHg BP Diastolic 97 mmHg Heart Rate 86 /min Respiratory Rate 14 /min Results Description No Information Available Procedures Description No Information Available Medical Devices Description No Information Available Encounters Type Date Location Provider Dx Diagnosis Office Visit 11/24/2018 [facility] William Beltran, M54.5 Low back pain 10:45a MD Assessments Date Code Description Provider 05/11/2019 S63.501A Unspecified sprain of right wrist, initial Jayashree Small M.D. encounter 05/11/2019 M54.5 Low back pain Jayashree Small M.D. 11/24/2018 M54.5 Low back pain William Beltran MD Plan of Treatment 05/11/2019 - Jayashree Small M.D.S63.501A Unspecified sprain of right wrist, initial encounterNew Labs:Antiextractable Nuclear Ag So, Ordered: 05/11/19Hla B27, Ordered: 05/11/19[place] PCR, Ordered: 05/11/19Rheumatoid Factor-RF, Ordered: 05/11/19M54.5 Low back painNew Xrays:MRI Spine Lumbar W/O Contrast, Ordered: Functional Status Description No Information Available Mental Status Description No Information Available Referrals Description No Information Available
--- OUTSIDE RECORDS SUMMARY | 2019-05-26 19:55 | XMS REPORT | Continuity of Care Document ---
:1980 External Reference #:[id number] Author Name Jayashree Small M.D. Address [address] [place] [address], [address] [place] [address] Problems Active Problems Provider Date High risk [...] N95.1 Henrique Banda, 12/22/2016 1mg Tablets day Xanax take one tablet Unknown 0.25mg Tablets by [...] Date Location Provider Dx Diagnosis Office Visit 05/11/2019 [facility] Jayashree Small, S63.501A Unspecified sprain 9:00a [facility] [place] of right wrist, initial encounter M54.5 Low back pain Office Visit 11/24/2018 10:45a [facility] William Beltran, M54.Hong Low back pain MD Assessments Date Code Description Provider 05/12/2019 M54.5 Low back pain Jayashree Small M.D. 05/11/2019 S63.501A Unspecified sprain of right wrist, initial Jayashree Small M.D. encounter 05/11/2019 M54.5 Low back pain Jayashree Small M.D. 11/24/2018 M54.5 Low back pain William Beltran MD Plan of Treatment No Information Available Functional Status Description No Information Available Mental Status Description No Information Available Referrals Description No Information Available
[2019-05-26 20:51] LABS: ABS Basophils 0.1 10^3/ul (0-0.2); ABS Eosinophils 0.3 10^3/ul (0-0.6); ABS Monocytes 0.8 10^3/ul (0-0.8); ABS Neutrophils 4.1 10^3/ul (1.5-7.7); Eosinophil % 3.5 %; Hematocrit 38 % (35-47); Lymphocyte % 36.2 %; Mean Corpuscular HGB Conc 34 g/dL (31-36); Mean Corpuscular Hemoglobin 32 pg (27-31); Mean Corpuscular Volume 92 fL (80-97); Mean Platelet Volume 8.6 fL (7.4-10.4); Nucleated Red Blood Cells % 0.1; Platelet Count 344 10^3/uL (150-450); Red Blood Count 4.15 10^6 /uL (3.70-4.87); Red Cell Distribution Width 13 % (10-15); White Blood Count 8.2 10^3/uL (3.5-10.8)
[2019-05-26 21:06] LABS: Albumin 4.3 g/dL (3.2-5.2); Albumin/Globulin Ratio 1.5 (1-3); C Reactive Protein 1.6 mg/L (<8.01); Calcium 9.3 mg/dL (8.6-10.3); EGFR African American 128.7 (>60); EGFR Non-African American 106.3 (>60); Globulin 2.9 g/dL (2-4); Potassium 3.9 mmol/L (3.5-5.0); Total Bilirubin 0.2 mg/dL (0.2-1.0); Total Protein 7.2 g/dL (6.4-8.9)
[2019-05-26 21:12] LABS: HCG Pregnancy 3.08 mIU/mL
[2019-05-26] MEDS ORDERED: Morphine 4 MG/ML VIAL (1 ml) 4 MG/ML VIAL IV ONE (21:26)
[2019-05-26] MEDS ORDERED: NS 0.9% 1000 ML** 1,000 ML IV ONE (21:26)
--- NOTE | 2019-05-26 21:27 | ED ---
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 She also notes neck pain and numbness/tingling/pain in her right forearm. She states that previously she felt a lump in her spine and was diagnosed with an L5-S1 paracentral disc protrusion and has Hx of infections. 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 She has tried ibuprofen and Tylenol for the pain but they have not helped. She is allergic to aspirin, penicillin, abd toradol. The back and neck pain is primarily localized to her right side and she rates her current pain severity a 10/10. No aggravating or alleviating factors noted. She also reports some swelling and bruising but denies any shoulder pain. LEVEL 5 CAVEAT. Full Hx unobtainable due to pt's severe pain and apprehensive nature. - History of Current Complaint Chief Complaint: EDBackInjuryPain Stated Complaint: RIGHT ARM NUMBNESS PER PT Time Seen by Provider: 05/26/19 21:19 Hx Obtained From: Patient Hx From Patient Unobtainable Due To: Other - LEVEL 5 CAVEAT. Full Hx unobtainable due to pt's severe pain and apprehensive nature. Onset/Duration: Sudden Onset, Lasting Days, Still Present Onset/Duration: Started Days Ago, Still Present Timing: Constant, Lasting Days Back Pain Location: Is Discrete @ Severity Initially: Severe Severity Currently: Severe Pain Intensity: 10 Pain Scale Used: 0-10 Numeric Aggravating Symptom(s): Nothing Alleviating Symptom(s): Nothing Associated Signs And Symptoms: Positive: Negative - shoulder pain, Swelling, Bruising, Numbness, Tingling, Other - pos - neck pain, right forearm pain - Allergies/Home Medications Allergies/Adverse Reactions: Allergies Allergy/AdvReac Type Severity Reaction Status Date / Time acetaminophen [From [place]] Allergy Hives Verified 05/26/19 19:42 aspirin Allergy Anaphylatic Verified 01/18/18 08:14 Shock hydrocodone [From [place]] Allergy Hives Verified 05/26/19 19:42 ketorolac [From Toradol] Allergy Anaphylatic Verified 05/26/19 19:42 Shock Penicillins Allergy Anaphylatic Verified 01/18/18 08:14 Shock PMH/Surg Hx/FS Hx/Imm Hx Endocrine/Hematology History: Denies: Hx Anticoagulant Therapy, Hx Blood Disorders, Hx Diabetes Cardiovascular History: Denies: Hx Coronary Artery Disease, Hx Hypertension, Hx Pacemaker/ICD Respiratory History: Reports: Other Respiratory Problems/Disorders - smoker History: Denies: Hx Renal Disease Musculoskeletal History: Reports: Hx Back Problems - h/o lumbar disckectomy, epidural abscess, CSF leak, poor pain control, Other Musculoskeletal History - back pain Sensory History: Denies: Hx Contacts or Glasses, Hx Hearing Aid Opthamlomology History: Denies: Hx Contacts or Glasses Neurological History: Reports: Hx Headaches, Other Neuro Impairments/Disorders - CSF leak, bilateral leg numbess, epidural abscess Psychiatric History: Reports: Hx Anxiety - prn med, Hx Depression - prn med, Other Psychiatric Issues/Disorders - narcotic dependence Denies: Hx Panic Disorder - Surgical History Surgery Procedure, Year, and Place: bilateral ear tubes [place] as a child [place] - 2006 [place]. tubal ligation - 2006 [place]. hysterectomy 2012 [place]. hernia repair 2014 - [place] Hx Anesthesia Reactions: No - Immunization History Date of Influenza Vaccine: Has not received Infectious Disease History: No Infectious Disease History: Denies: Hx of Known/Suspected MRSA, Traveled Outside the [place] in Last 30 Days - Family History Known Family History: Positive: Hypertension, Other Family History: Lung CA, Alzheimer's, sleep apnea - Social History Alcohol Use: None Hx Substance Use: Yes Substance Use Type: Reports: Marijuana, Prescribed - narcotics for back pain Substance Use Comment - Amount & Last Used: reports as needed - last used Hx Tobacco Use: Yes Smoking Status (MU): Current Every Day Smoker Type: Cigarettes Amount Used/How Often: reports down to 5-10 per day for approx 7 years Review of Systems Positive: Other - pos - back pain, neck pain, swelling, neg - shoulder pain Positive: Bruising Positive: Numbness - and tingling in right forearm All Other Systems Reviewed And Are Negative: No - Comments Additional Review of Systems Comments: LEVEL 5 CAVEAT. Full Hx unobtainable due to pt's severe pain and apprehensive nature. Physical Exam - Summary Physical Exam Summary: Appearance: Ill-appearing, Well-nourished, tearful, severe pain Skin: Warm, dry, no obvious rash Eyes: sclera anicteric, no conjunctival pallor ENT: mucous membranes moist, pharynx appears normal Neck: Supple, nontender Respiratory: Clear to auscultation, no signs of respiratory distress Cardiovascular: Normal S1, S2. No murmurs. Normal distal pulses in tibial and radial bilaterally. Abdomen: Soft, nontender, normal active bowel sounds present Musculoskeletal: Normal, ROM is mildly restricted, diffuse tenderness along the right paracervical musculature Neurological: A&Ox3, awake and alert, mentation is normal, speech is fluent and appropriate, no motor deficit, reflexes at the elbow and knee are 2+ and symmetric, no clonus, focal decreased sensation to touch at the radial distal forearm. Psychiatric: affect is normal, does not appear anxious or depressed Triage Information Reviewed: Yes Vital Signs On Initial Exam: Initial Vitals Temp Pulse Resp BP Pulse Ox 98.7 F 84 18 142/121 96 05/26/19 19:41 05/26/19 19:41 05/26/19 19:41 05/26/19 19:41 05/26/19 19:41 Vital Signs Reviewed: Yes Completion Of Physical Exam Limited Due To: Level 5 - LEVEL 5 CAVEAT. Full Hx unobtainable due to pt's severe pain and apprehensive nature. Diagnostics - Vital Signs Vital Signs Temp Pulse Resp BP Pulse Ox 05/26/19 19:41 98.7 F 84 18 142/121 96 - Laboratory Lab Results: Lab Results 05/26/19 05/26/19 Range/Units 20:41 20:41 WBC 8.2 (3.5-10.8) 10^3/uL RBC 4.15 (3.70-4.87) 10^6 /uL Hgb 13.0 (12.0-16.0) g/dL Hct 38 (35-47) % MCV 92 (80-97) fL MCH 32 H (27-31) pg MCHC 34 (31-36) g/dL RDW 13 (10-15) % Plt Count 344 (150-450) 10^3/uL MPV 8.6 (7.4-10.4) fL Neut % (Auto) 49.8 % Lymph % (Auto) 36.2 % Posey % (Auto) 9.2 % Eos % (Auto) 3.5 % Baso % (Auto) 1.3 % Absolute Neuts (auto) 4.1 (1.5-7.7) 10^3/ul Absolute Lymphs (auto) 3.0 (1.0-4.8) 10^3/ul Absolute Monos (auto) 0.8 (0-0.8) 10^3/ul Absolute Eos (auto) 0.3 (0-0.6) 10^3/ul Absolute Basos (auto) 0.1 (0-0.2) 10^3/ul Absolute Nucleated RBC 0.0 10^3/ul Nucleated RBC % 0.1 Sodium 138 (135-145) mmol/L Potassium 3.9 (3.5-5.0) mmol/L Chloride 106 (101-111) mmol/L Carbon Dioxide 24 (22-32) mmol/L Anion Gap 8 (2-11) mmol/L BUN 12 (6-24) mg/dL Creatinine 0.63 (0.51-0.95) mg/dL Est GFR ( Amer) 128.7 (>60) Est GFR (Non-Af Amer) 106.3 (>60) BUN/Creatinine Ratio 19.0 (8-20) Glucose 101 H (70-100) mg/dL Calcium 9.3 (8.6-10.3) mg/dL Total Bilirubin 0.20 (0.2-1.0) mg/dL AST 22 (13-39) U/L ALT 24 (7-52) U/L Alkaline Phosphatase 59 (34-104) U/L C-Reactive Protein 1.60 (<8.01) mg/L Total Protein 7.2 (6.4-8.9) g/dL Albumin 4.3 (3.2-5.2) g/dL Globulin 2.9 (2-4) g/dL Albumin/Globulin Ratio 1.5 (1-3) Beta HCG, Quant 3.08 mIU/mL Result Diagrams: 05/26/19 20:41 05/26/19 20:41 Lab Statement: Any lab studies that have been ordered have been reviewed, and results considered in the medical decision making process. - CT Cervical Spine MRI CT Interpretation Completed By: Radiologist Summary of CT Findings: IMPRESSION: Minimal degenerative change cervical spine without focal disc herniation or significant stenosis. ED Physician has reviewed this report. Re-Evaluation - Re-Evaluation First Eval Re-Evaluation Time: 23:50 Change: Improved Comment: pt is feeling better, MRI spine is negative, pt is comfortable going home. 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 She also reports neck pain and numbness/tingling/ pain in her right forearm but denies any shoulder pain. Test results normal except for MCH 32 and Glucose 101. In the ED course pt was given 10 mg Morphine IV and 1000 mls fluids IV. A Cervical spine MRI reveals: Minimal degenerative change cervical spine without focal disc herniation or significant stenosis. Final Dx is neck pain. Pt will be discharged home with PCP follow up. Pt is agreeable with this plan. - Diagnoses Provider Diagnoses: Neck pain Discharge ED - Sign-Out/Discharge Documenting (check all that apply): Patient Departure - discharge Patient Received Moderate/Deep Sedation with Procedure: No - Discharge Plan Condition: Stable Disposition: HOME Prescriptions: oxyCODONE/Acetamin 5/325 MG* [Percocet 5/325 TAB*] 2 tab PO Q4H PRN #15 tab MDD 6 PRN Reason: Pain - Severe predniSONE TAB* [Deltasone 20 MG TAB*] 40 mg PO DAILY 5 Days #10 tab Patient Education Materials: Neck Pain (ED) Referrals: Lila Aponte MD [Medical Doctor] - 3 Days - Billing Disposition and Condition Condition: STABLE Disposition: Home - Attestation Statements Document Initiated by Nicolas: Yes Documenting Scribe: Venkatesh Vazquez Provider For Whom Nicolas is Documenting (Include Credential): Brendan Borja MD Scribe Attestation: Venkatesh Canales, scribed for Brendan Borja MD on 05/27/19 at 0505. Scribe Documentation Reviewed: Yes Provider Attestation: The documentation as recorded by the Venkatesh guillermo accurately reflects the service I personally performed and the decisions made by me, Brendan Borja MD Status of Scribe Document: Viewed
[2019-05-26] MEDS ORDERED: predniSONE TAB* 20 MG PO ONE (23:50)
[2019-05-26] MEDS ORDERED: oxyCODONE/Acetamin 5/325 MG* TAB PO ONE (23:50)
[2019-05-27 00:45] VITALS: BP 138/85
== END 2019-05-27 00:44 | disposition home or self-care (01) ==
LOC: ED 19:36
DX: M54.2 Cervicalgia (principal); F41.9 Anxiety disorder, unspecified; F32.9 Major depressive disorder, single episode, unspecified; F17.210 Nicotine dependence, cigarettes, uncomplicated; Z79.899 Other long term (current) drug therapy; Z88.6 Allergy status to analgesic agent; Z88.5 Allergy status to narcotic agent; Z88.0 Allergy status to penicillin
CPT/HCPCS: 36415; 72141; 80053; 84702; 85025; 86140; 96361; 96374; 99282; A9270-GY; J2270; J7512

== ENCOUNTER 2019-05-31 11:53 | Emergency (ER) | payer OTHER ==
[2019-05-31] MEDS ORDERED: Morphine 4 MG/ML VIAL (1 ml) 4 MG/ML VIAL IV ONE ×2 (12:07→15:36)
[2019-05-31] MEDS ORDERED: NS 0.9% 1000 ML** 1,000 ML IV ONE (12:07)
--- NOTE | 2019-05-31 12:11 | ED ---
Back Pain - HPI Summary HPI Summary: This patient is a 39 year old F presenting to [facility] accompanied by EMS with a chief complaint of lower back pain worsening since 3 days ago. The patient rates the pain 10/10 in severity. Symptoms aggravated by movement. Symptoms alleviated by nothing. Patient reports numbness/tingling and weakness of right lower extremity, chills, incontinent of urine for 3 days, inability to defecate due to the pain. Patient denies fever, vomiting. Medications reviewed. Allergies noted. Pt has hx of back, appendix, hernia surgeries and hysterectomy. Pt smokes and uses marijuana. - History of Current Complaint Stated Complaint: NON-TRAUMATIC BACK PAIN PER EMS Time Seen by Provider: 05/31/19 11:57 Hx Obtained From: Patient, EMS Onset/Duration: Sudden Onset, Still Present, Worse Since - 3 days ago Timing: Constant Pain Intensity: 10 Pain Scale Used: 0-10 Numeric Aggravating Symptom(s): Movement Alleviating Symptom(s): Nothing Associated Signs And Symptoms: Positive: Numbness - numbness/tingling and weakness of right lower extremity, Bladder Incontinence - for 3 days, Bowel Incontinence - due to the back pain, Other - positive - lower back pain, chills. negative - vomiting.. Negative: Fever - Allergies/Home Medications Allergies/Adverse Reactions: Allergies Allergy/AdvReac Type Severity Reaction Status Date / Time acetaminophen [From [place]] Allergy Hives Verified 05/31/19 12:06 aspirin Allergy Anaphylatic Verified 05/31/19 12:06 Shock hydrocodone [From [place]] Allergy Hives Verified 05/31/19 12:06 ketorolac [From Toradol] Allergy Anaphylatic Verified 05/31/19 12:06 Shock Penicillins Allergy Anaphylatic Verified 05/31/19 12:06 Shock PMH/Surg Hx/FS Hx/Imm Hx Previously Healthy: No Endocrine/Hematology History: Denies: Hx Anticoagulant Therapy, Hx Blood Disorders, Hx Diabetes Cardiovascular History: Denies: Hx Coronary Artery Disease, Hx Hypertension, Hx Pacemaker/ICD Respiratory History: Reports: Other Respiratory Problems/Disorders - smoker History: Denies: Hx Renal Disease Musculoskeletal History: Reports: Hx Back Problems - h/o lumbar disckectomy, epidural abscess, CSF leak, poor pain control, Other Musculoskeletal History - back pain Sensory History: Denies: Hx Contacts or Glasses, Hx Hearing Aid Opthamlomology History: Denies: Hx Contacts or Glasses Neurological History: Reports: Hx Headaches, Other Neuro Impairments/Disorders - CSF leak, bilateral leg numbess, epidural abscess Psychiatric History: Reports: Hx Anxiety - prn med, Hx Depression - prn med, Other Psychiatric Issues/Disorders - narcotic dependence Denies: Hx Panic Disorder - Surgical History Surgical History: Yes Surgery Procedure, Year, and Place: bilateral ear tubes [place] a child - [place] - 2006 [place]. tubal ligation - 2006 [place]. hysterectomy 2012 [place]. hernia repair 2015 - [facility] Hx Anesthesia Reactions: No - Immunization History Date of Influenza Vaccine: Has not received Infectious Disease History: Denies: Hx of Known/Suspected MRSA - Family History Known Family History: Positive: Hypertension, Other Family History: Lung CA, Alzheimer's, sleep apnea - Social History Alcohol Use: None Hx Substance Use: Yes Substance Use Type: Reports: Marijuana, Prescribed - narcotics for back pain Substance Use Comment - Amount & Last Used: reports as needed - last used Hx Tobacco Use: Yes Smoking Status (MU): Current Every Day Smoker Type: Cigarettes Amount Used/How Often: reports down to 5-10 per day for approx 7 years Review of Systems Positive: Chills. Negative: Fever Negative: Vomiting Positive: incontinence - incontinent of urine for 3 days, inability to defecate due to the pain. Musculoskeletal: Other - lower back pain Positive: Weakness - right lower extremity, Numbness - right lower extremity Positive: Other All Other Systems Reviewed And Are Negative: Yes Physical Exam - Summary Physical Exam Summary: Constitutional: Well-developed, Well-nourished, Alert. Crying in pain Skin: Warm, Dry HENT: Normocephalic; Atraumatic Eyes: Conjunctiva normal Neck: Musculoskeletal ROM normal neck. (-) JVD, (-) Stridor, (-) Tracheal deviation Cardio: Rhythm regular, rate normal, Heart sounds normal; Intact distal pulses; The pedal pulses are 2+ and symmetric. Radial pulses are 2+ and symmetric. (-) Murmur Pulmonary/Chest wall: Effort normal. (-) Respiratory distress, (-) Wheezes, (-) Rales Abd: Soft, (-) tenderness, (-) Distension, (-) Guarding, (-) Rebound Musculoskeletal: (-) Edema. Mid thoracic to lumbar tenderness. Prior surgical site over lumbar spine. 4/5 strength for lower and upper extremities. Lymph: (-) Cervical adenopathy Neuro: Alert, Oriented x3 Psych: Mood and affect Normal Rectal: Good rectal tone Triage Information Reviewed: Yes Vital Signs Reviewed: Yes Diagnostics - Laboratory Result Diagrams: 05/31/19 12:31 05/31/19 12:31 Lab Statement: Any lab studies that have been ordered have been reviewed, and results considered in the medical decision making process. - Radiology Thoracic Spine MRI Radiology Interpretation Completed By: Radiologist Summary of Radiographic Findings: IMPRESSION: NEGATIVE EXAM. These findings were reviewed by Dr. Deluca. Lumbar Spine MRI Radiology Interpretation Completed By: Radiologist Summary of Radiographic Findings: IMPRESSION: 1. THE PATIENT IS STATUS POST LAMINECTOMY AND DISCECTOMY AT THE L5-S1 LEVEL. THERE IS MILD INCREASED SIGNAL INTENSITY ON T2-WEIGHTED IMAGES WITHIN THE L5-S1 DISC AND MILD. ENHANCEMENT OF THE DISC WHICH IS UNCHANGED FROM THE PRIOR STUDY FROM APRIL 2019 AND LIKELY REPRESENTS POST SURGICAL CHANGE. THE POSSIBILITY OF DISCITIS CANNOT ABSOLUTELY BE. EXCLUDED. THERE IS NO EVIDENCE FOR OSTEOMYELITIS OR ABSCESS. 2. MILD TO MODERATE LUMBAR SPONDYLITIC CHANGES DESCRIBED. These findings were reviewed by Dr. Deluca. Re-Evaluation - Re-Evaluation First Eval Re-Evaluation Time: 18:18 Comment: Pt ambulated, was offered admission, but chose to get discharged. Back Pain Course/Dx - Course Course Of Treatment: Patient was sent in from the neurosurgery office with possible cauda equina. Patient has a complex history with diskectomy and following discitis. Patient has had urinary incontinence per her and was in severe pain. Patient had a negative MRI of her lumbar and T-spine with contrast for any acute abnormality. Patient had negative MRI of her cervical spine 5 days ago. Patient normal blood work here with normal ESR and CRP. Patient given 2 doses of morphine and 1 dose of oxycodone. Patient was offered admission but declined. - Diagnoses Provider Diagnoses: Acute low back pain - Provider Notifications Discussed Care Of Patient With: Lila Aponte Time Discussed With Above Provider: 13:21 Instructed by Provider To: Other - Dr. Aponte recommends a Thoracic and Lumbar spine MRI with and without contrast for the pt. Discharge ED - Sign-Out/Discharge Documenting (check all that apply): Patient Departure - discharge Patient Received Moderate/Deep Sedation with Procedure: No - Discharge Plan Condition: Stable Disposition: HOME Prescriptions: Cyclobenzaprine TAB* [Flexeril 10 MG TAB*] 10 mg PO BID PRN #12 tab PRN Reason: Pain - Moderate Patient Education Materials: Acute Low Back Pain (ED), Lumbar Radiculopathy (ED ) Referrals: Lila Aponte MD [Medical Doctor] - Additional Instructions: Please return if you worsening urinary symptoms, you cannot defecate or defecate yourself, numbness around your anus Please call Dr. Masters to set up a follow-up appointment - Billing Disposition and Condition Condition: STABLE Disposition: Home - Attestation Statements Document Initiated by Nicolas: Yes Documenting Scribe: Chris Uriarte Provider For Whom Nicolas is Documenting (Include Credential): Dr. Austyn Deluca MD Scribe Attestation: Chris Canales scribed for Dr. Austyn Deluca MD on 05/31/19 at 1912. Scribe Documentation Reviewed: Yes Provider Attestation: The documentation as recorded by the Chris guillermo accurately reflects the service I personally performed and the decisions made by me, Dr. Austyn Deluca MD Status of [place] Document: Viewed
[2019-05-31 12:46] LABS: ABS Basophils 0.1 10^3/ul (0-0.2); ABS Eosinophils 0.2 10^3/ul (0-0.6); ABS Lymphocytes 2.8 10^3/ul (1.0-4.8); ABS Monocytes 0.5 10^3/ul (0-0.8); ABS Neutrophils 2.9 10^3/ul (1.5-7.7); Eosinophil % 3.3 %; Hematocrit 37 % (35-47); Hemoglobin 12.4 g/dL (12.0-16.0); Lymphocyte % 43.5 %; Mean Corpuscular HGB Conc 34 g/dL (31-36); Mean Corpuscular Hemoglobin 31 pg (27-31); Mean Corpuscular Volume 93 fL (80-97); Mean Platelet Volume 8.7 fL (7.4-10.4); Nucleated Red Blood Cells % 0.1; Platelet Count 284 10^3/uL (150-450); Red Blood Count 3.95 10^6 /uL (3.70-4.87); Red Cell Distribution Width 13 % (10-15); White Blood Count 6.5 10^3/uL (3.5-10.8)
[2019-05-31 13:12] LABS: HCG Pregnancy 1.82 mIU/mL
[2019-05-31 13:20] LABS: Urine Appearance Clear; Urine Bacteria Absent (Absent); Urine Bilirubin Negative (Negative); Urine Blood 1+ (Negative); Urine Color Straw; Urine Glucose Negative (Negative); Urine Ketones Negative (Negative); Urine Nitrite Negative (Negative); Urine Protein Negative (Negative); Urine Red Blood Cell Trace(0-2/hpf) (Absent); Urine Specific Gravity 1.011 (1.010-1.030); Urine Squamous Epithelial Cell Present (Absent); Urine Urobilinogen Negative (Negative); Urine White Blood Cell Absent (Absent)
[2019-05-31 13:22] LABS: Albumin/Globulin Ratio 1.8 (1-3); BUN/Creatinine Ratio 21.3 (8-20); C Reactive Protein 1.74 mg/L (<8.01); Calcium 9.1 mg/dL (8.6-10.3); EGFR African American 133.5 (>60); EGFR Non-African American 110.4 (>60); Globulin 2.2 g/dL (2-4); Potassium 4.2 mmol/L (3.5-5.0); Total Bilirubin 0.2 mg/dL (0.2-1.0); Total Protein 6.2 g/dL (6.4-8.9)
[2019-05-31 14:42] LABS: Erythrocyte Sed Rate 10 mm/Hr (0-19)
[2019-05-31] MEDS ORDERED: Gadoteridol* (CONTRAST) 279.3 MG/ML 10 ML IV ONE (16:24)
[2019-05-31] MEDS ORDERED: oxyCODONE TAB* 5 MG TAB PO ONE (18:13)
[2019-05-31 18:35] VITALS: BP 121/84
== END 2019-05-31 18:30 | disposition home or self-care (01) ==
LOC: ED 11:53
DX: M54.5 Low back pain (principal); F41.9 Anxiety disorder, unspecified; F32.9 Major depressive disorder, single episode, unspecified; F17.210 Nicotine dependence, cigarettes, uncomplicated; Z90.710 Acquired absence of both cervix and uterus; Z88.6 Allergy status to analgesic agent; Z88.5 Allergy status to narcotic agent; Z88.0 Allergy status to penicillin
CPT/HCPCS: 36415; 72157; 72158; 80053; 81003; 81015; 84702; 85025; 85652; 86140; 87040; 96361; 96374; 96376; 99283; A9270-GY; A9579; J2270